=== PATIENT | male | born 1955 | race Caucasian/White ===

== ENCOUNTER → 2017-04-22 | Outpatient (CLI) | payer BC ==
[~2017-04-22] MED LIST: ASCA500 PO; ATOR10TA88 PO; CIPR-255 PO; GARL400T4 PO; LSN/10125 PO; MULT-506 PO; OMEG10007 PO; OPTIRAY 320 IV PRN
--- NOTE | 2017-04-22 18:20 | DIAGNOSTIC IMAGING REPORT ---
ABD/PELVIS IV AND ORAL CONT HISTORY: 61 years-old Male R10.9 Flank painR10.31 Abdominal pain, RLQ (right lower quadrant COMPARISON: 02/17/2014 CT abdomen and pelvis TECHNIQUE: Multiple axial CT images of the abdomen and pelvis were obtained following the intravenous administration of 120 mL Optiray 320. Oral contrast was also administered. A dose lowering technique was used consistent with the principals of K[facility]. FINDINGS: 6 x 4 mm noncalcified pulmonary nodule is present within the basal right lower lobe, unchanged from 02/17/2014 compatible with benign etiology. Coronary arterial calcifications are noted. No pneumoperitoneum. There is nonspecific 8 x 9 mm low attenuating lesion noted within the anterior right hepatic lobe, unchanged and nonspecific, however suggests benign etiology such as a hepatic cyst. The spleen, pancreas, and adrenal glands appear to be unremarkable. There is a suggested gallstones seen near the gallbladder neck Extrarenal renal pelvis on the left is again seen without hydronephrosis. Ureters and urinary bladder are unremarkable. The prostate is enlarged measuring up to 5.6 cm transversely containing coarse central calcifications. The abdominal aorta is normal in both course and caliber with mild degree of mixed plaquing present. Retroaortic left renal vein is seen. No bulky adenopathy. Nonspecific linear density is again seen in the region of the splenic vein, unchanged and likely incidental. Small fat filled hiatal hernia is noted. There is no bowel obstruction. Postsurgical changes are seen involving the sigmoid colon compatible with partial resection. Noninflamed colonic diverticula are noted. The appendix is contrast and air filled the right lower quadrant and appears normal. Small fat filled left spigelian hernia is noted with diastases of 1.1 cm. Advanced intervertebral disc space narrowing is seen at L5-S1. Bones appear intact. Bone island is noted within the left superior pubic ramus. IMPRESSION: 1. No acute intra-abdominal or intrapelvic abnormality identified to correlate with the patient's symptomatology. Normal appendix. 2. Prostatomegaly. 3. Clonic diverticulosis without diverticulitis. 4. Small fat filled left spigelian hernia is noted with diastases of 1.1 cm. 5. Probable cholelithiasis The above report was generated using voice recognition software. It may contain grammatical, syntax or spelling errors. Electronically signed by: Red Salmon M.D. 04/22/2017 6:18 PM Dictated Date/Time: 04/22/2017 6:09 PM
== END | disposition home or self-care (01) ==
LOC: C.CTS 15:39
PROVIDERS: ATTEND Physician Assistant Medical
DX: R10.31 Right lower quadrant pain (principal); R10.9 Unspecified abdominal pain; N40.0 Benign prostatic hyperplasia without lower urinary tract symptoms; K57.30 Diverticulosis of large intestine without perforation or abscess without bleeding; K43.9 Ventral hernia without obstruction or gangrene

== ENCOUNTER → 2017-08-08 | Outpatient (CLI) | payer BC ==
[~2017-08-08] MED LIST changes: +ATOR10TA82 PO; -ATOR10TA88 PO; -OPTIRAY 320 IV PRN
[2017-08-08 10:02] LABS: BASO % 0.6 %; BASO ABS # 0.03 K/uL (0-0.2); COMPLETE YES; EOS % 3.5 %; IG% 0.2 %; LYMPH % 35.6 %; LYMPH ABS # 1.92 K/uL (1.2-3.4); MEAN CELL VOLUME 91.3 fL (80-100); MEAN CORPUSCULAR HEMOGLOBIN 32.9 pg (25-34); MEAN PLATELET VOLUME 10.5 fL (7.4-10.4); MONO % 11.7 %; NEUT % 48.4 %; PLATELET COUNT 188 K/uL (130-400); RED BLOOD COUNT 4.93 M/uL (4.7-6.1); WHITE BLOOD COUNT 5.39 K/uL (4.8-10.8)
[2017-08-08 10:30] LABS: URINE APPEARANCE CLEAR (CLEAR); URINE BILIRUBIN NEG (NEG); URINE COLOR YELLOW; URINE EPITHELIAL CELL AUTO 0-5 /lpf (0-5); URINE NITRITE NEG (NEG); URINE SPECIFIC GRAVITY 1.025 (1.000-1.030); UROBILINOGEN NEG (NEG)
[2017-08-08 10:35] LABS: MANUAL MICROSCOPIC REQUIRED? NO; REVIEW REQ? NO
[2017-08-08 10:39] LABS: ALT/SGPT 33 U/L (12-78); AST/SGOT 20 U/L (15-37); BLOOD UREA NITROGEN 19 mg/dl (7-18); BUN/CREATININE RATIO 17.7 (10-20); CALCIUM 9.1 mg/dl (8.5-10.1); CARBON DIOXIDE 28 mmol/L (21-32); CHLORIDE 104 mmol/L (98-107); GLUCOSE 105 mg/dl (70-99); POTASSIUM 4.1 mmol/L (3.5-5.1); SODIUM 141 mmol/L (136-145)
[2017-08-08 10:43] LABS: ALB/GLOB RATIO 1.1 (0.9-2); ALKALINE PHOSPHATASE 72 U/L (45-117)
== END | disposition home or self-care (01) ==
LOC: C.LAB 07:04
PROVIDERS: ATTEND Physician Assistant Medical
DX: R10.31 Right lower quadrant pain (principal)

== ENCOUNTER 2023-05-25 09:36 | Observation (INO) ==
[2023-05-25] MEDS ORDERED: NITROGLYCERIN 2% OINTMENT 30GM TUBE EXT STA (09:44)
[2023-05-25] MEDS ORDERED: NITROGLYCERIN SL 0.4 MG/TAB TAB SL STA (09:44)
[2023-05-25] MEDS ORDERED: SODIUM CHLORIDE 0.9% 1000ML 1,000 ML IV ONE (09:45)
--- NOTE | 2023-05-25 09:48 | Emergency Department Note ---
Impression & Plan Substernal chest pain, Atrial fibrillation ED Provider Note Name: LELIA DAWKINS Age: 67 Sex: M Arrives Via: Ambulance Informant: Patient, ED Provider: Rodolfo Aggarwal MD Chief Complaint: Chest Pain Impression: As Per Impressions Above Medical Decision Makin-year-old gentleman arrives for evaluation of chest pain. Patient with a history of dyslipidemia, BPH, atrial fibrillation who was cardioverted a few months ago. He has been on Eliquis for some time now but does note he missed a dose a few days ago. Patient arrives with crushing substernal chest pressure. Resolved with nitro. A bit hypotensive on arrival with some continued pain a nitro paste was placed with resolution of pain. He is in A-fib with good controlled rate. No indication to start further IV anticoagulants at this time. He had already received aspirin by EMS. Laboratory work-up is essentially benign including a normal troponin. That said given patient's history cardiac rule out is clearly indicated as he is high risk. I did obtain a D-dimer as he did recently travel back from [place] which is within normal range. No indication for CT angio at this time. Prior Medical Record and Triage/Nursing Notes reviewed by Me External chart reviewed by me including previous cardiology and PCP visits Differentials:Cardiac ischemia, aortic dissection, pulmonary embolism, pneumothorax, pneumonia, pericarditis, myocarditis, esophageal rupture, GERD, cholecystitis, pancreatitis, musculoskeletal, as well as other pathologies. Vital Signs: reviewed and remarkable for no significant abnormalities Interventions: Normal saline bolus, nitroglycerin paste 1 inch Labs:Reviewed and remarkable for no significant abnormalities Imagin view chest x-ray no acute findings as per my interpretation. No pneumothorax, pneumonia, wide mediastinum. EKG:As per my interpretation. Indication chest pain. Atrial fibrillation at 54 bpm with no overt ischemia appreciated. QTc 422. When compared to EKG from March 17, 2023 A-fib has replaced normal sinus rhythm Cardiac/Tele Monitoring: Cardiac Monitoring: An Order was placed for continuous cardiac monitoring. The monitor shows a rate of 50 with a afib rhythm. Consults:Dr Maria BAUMAN Hospitalist Plan: Disposition:Hospitalization. Condition: Good History of Present Illness:67-year-old gentleman arrives for evaluation of chest pain. Patient notes he was sitting down at breakfast this morning when he developed substernal chest pressure. He not really eaten or drank anything quite yet. Chest pressure goes the left shoulder. Associate with some nausea. Called 911. Given aspirin and nitro in route. Chest pain has resolved and then started to come back after the nitroglycerin. Denies any nausea, vomiting, palpitations, syncope. He does note he feels mildly short of breath at this time. He has a history of A-fib for which he was cardioverted about a month ago. He has been taking Eliquis for the last few weeks without missing any doses other than a single dose 2 days ago. Patient did recently travel back from [place]. He denies any leg swelling or calf pain. Denies any falls, trauma, injuries. Denies any previous ACS history. He has never had a catheterization. Past History:Atrial fibrillation, dyslipidemia, BPH, CAD Home Medications:See Below Allergies:atorvastatin Vitals:Blood Pressure: , Pulse 122/92, RR 71, T 18C, O2 36.7% on 100 Physical Exam: GENERAL: Patient is anxious appearing and in mild distress. EYES: No scleral icterus, unremarkable pupils. ENT: Mucous membranes moist, no nasal congestion. NECK: No masses appreciated, nomeningismus, trachea is midline. RESPIRATORY: No dyspnea. Clear to auscultation and equal bilaterally. No wheeze, no rhonchi. CARDIOVASCULAR: Regular rate and rhythm.No murmurs, rubs, gallops appreciated. GASTROINTESTINAL: Abdomen soft, non-tender, no peritonitis.Bowel sounds positive.No masses appreciated. BACK: No midline tenderness, no CVA tenderness EXTREMITIES: Normal motion all extremities, no cyanosis, no edema. NEUROLOGIC: Alert and oriented, no acute motor or sensory deficits, no focal weakness, cranial nerves grossly intact. SKIN: No rash, no jaundice, no diaphoresis. PSYCH: Appropriate GCS: 15 ED Course: Times/Reassessments: Stable no further chest pain and agreeable to hospitalization for cardiac rule out Rodolfo Aggarwal MD Past Med/Surg History Medical History Aortic atherosclerosis BPH (benign prostatic hyperplasia) Coronary artery calcification Dysplastic nevus Elevated cholesterol Elevated PSA History of urinary retention required serrano catheter for 10 days *January 2023 Hx of diverticulitis of colon Hypertension New onset a-fib new dx Snoring Surgical History H/O prostate biopsy History of arthroscopy of left knee History of colonoscopy History of colostomy reversal History of cystoscopy History of foot surgery left History of partial colectomy *with temporary colostomy>r/t diverticulitis History of tonsillectomy and adenoidectomy History of tooth extraction Hx of vasectomy Family History Mother Arthritis Father Coronary heart disease Dementia Unknown Benign polyp of large intestine Other Colonic polyp Hypertension Nephrolithiasis No family history of adverse response to anesthesia Prostate cancer Denies family history of Ovarian cancer Myocardial infarction Breast cancer Colorectal cancer Social History Smoking Status: Never smoker Second Hand Exposure: No; Do You Dip or Chew Tobacco: No; Tobacco Cessation Education Requested by Patient: No Hx Alcohol Use: Yes Alcohol type: beer Alcohol Intake Frequency: 2-3 x/Week Alcohol Intake Frequency Comment: weekends Hx Substance Use: No Preferred Language: Yakut Communication Ability: Effective Visual Impairment: No Limitations Hearing Ability: Normal 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 Beliefs That Will Affect Care: None marital status: Current Living Situation: Spouse current occupational status: retired Other Information That Helps Us Care for You: No Feels Safe at Home: Yes Safety Concerns: Feels Safe At This Time Childhood Exposure to Second-Hand Smoke: No Diet: regular Diet Comment: regular caffeine: Yes during the past year weight has: remained stable Dental Care, Regularly: Yes Physical Activity Frequency: Daily Seatbelt Use: always Sunscreen Use: Yes Assistive Devices: Glasses Allergies Allergies Allergy/AdvReac Type Severity Reaction Status Date / Time atorvastatin AdvReac Intermediate "JOINTS Verified 04/20/23 08:52 ACHED ALL OVER". if he takes too much at the time Home Meds Home Medications Medication Instructions Recorded Confirmed ascorbic acid (vitamin C) 500 mg 500 mg PO QAM 01/25/20 05/25/23 tablet multivitamin (Daily Multi-Vitamin 1 tab PO QAM 01/25/20 05/25/23 tablet) atorvastatin 40 mg tablet 40 mg PO QAM 05/25/23 05/25/23 lisinopril 10 1 tab PO QAM 05/25/23 05/25/23 mg-hydrochlorothiazide 12.5 mg tablet tamsulosin 0.4 mg capsule 0.4 mg PO QAM 05/25/23 05/25/23 valacyclovir 1 gram tablet See Rx Instructions .Route 05/25/23 05/25/23 .COMPLEX PRN Other Previous Rx's Medication Instructions Recorded apixaban 5 mg tablet (Eliquis) 5 mg PO BID #180 tabs 04/20/23 Results & Data (ED) Vital Signs Vital Signs - 24 hr 05/25/23 09:36 05/25/23 09:42 05/25/23 10:04 Temperature 36.7 C Temperature Source Oral Pulse Rate 69 71 Pulse Rate [Apical] Respiratory Rate 18 Respiratory Effort / Characteristics Non-Labored Spontaneous Non-Labored Respiratory Depth Normal Respiratory Pattern Regular Blood Pressure 122/92 Blood Pressure [Right Arm] Blood Pressure Mean 102 Blood Pressure Mean [Right Arm] Pulse Oximetry 100 Oxygen Delivery Method Room Air Sepsis Recent Fever Within 48 Hours No Sepsis New/Unexplained Change in Mental Status No Sepsis Action Taken by Nursing No Action Required 05/25/23 10:04 05/25/23 09:56 05/25/23 10:00 Temperature Temperature Source Pulse Rate Pulse Rate [Apical] 55 L 56 L Respiratory Rate 18 23 Respiratory Effort / Characteristics Non-Labored Spontaneous Non-Labored Spontaneous Respiratory Depth Normal Normal Respiratory Pattern Blood Pressure Blood Pressure [Right Arm] 107/82 108/82 Blood Pressure Mean Blood Pressure Mean [Right Arm] 90 90 Pulse Oximetry 98 98 Oxygen Delivery Method Room Air Room Air Room Air Sepsis Recent Fever Within 48 Hours Sepsis New/Unexplained Change in Mental Status Sepsis Action Taken by Nursing Laboratory Data 05/25/23 09:45 05/25/23 09:45 Lab Results 05/25/23 05/25/23 05/25/23 Range/Units 09:45 09:45 09:45 WBC 6.61 (4.8-10.8) K/ul RBC 5.05 (4.70-6.10) M/uL Hgb 16.6 (14.0-18.0) g/dl Hct 45.3 (42.0-52.0) % MCV 89.7 (80.0-100.0) fL MCH 32.9 (25.0-34.0) pg MCHC 36.6 H (32.0-36.0) g/dL RDW Std Deviation 38.2 (36.4-46.3) fL RDW Coeff of Silverio 11.8 (11.5-14.5) % Plt Count 189 (130-400) K/uL MPV 10.0 (9.4-12.4) fL Immature Gran % (Auto) 0.2 % Neut % (Auto) 52.6 % Lymph % (Auto) 30.7 % [place] % (Auto) 9.7 % Eos % (Auto) 5.9 % Baso % (Auto) 0.9 % Neut # (Auto) 3.48 (1.40-6.50) K/uL Lymph # (Auto) 2.03 (1.20-3.40) K/uL [place] # (Auto) 0.64 H (0.11-0.59) K/uL Eos # (Auto) 0.39 (0.00-0.50) K/uL Baso # (Auto) 0.06 (0.00-0.20) K/uL Immature Gran # (Auto) 0.01 (0.01-0.20) K/uL PT 12.0 (9.0-12.0) Seconds INR 1.1 (0.9-1.1) APTT 28.8 (21.0-31.0) Seconds PTT Ratio 1.0 D-Dimer < 190 (0-500) ug/L FEU Sodium 138 (136-145) mmol/L Potassium 4.1 (3.5-5.1) mmol/L Chloride 106 (98-107) mmol/L Carbon Dioxide 24 (21-32) mmol/L Anion Gap 8 (3-11) BUN 20 (6-23) mg/dl Creatinine 1.05 (0.6-1.4) mg/dl Est Cr Clr Drug Dosing 83.0 ml/min Est GFR ( Amer) 85.9 ml/min Est GFR (Non-Af Amer) 74.1 ml/min BUN/Creatinine Ratio 19.0 (10-20) Glucose 120 H (70-99(Fasting)) mg/dl Calcium 9.8 (8.6-10.3) mg/dl Magnesium 1.9 (1.7-2.4) mg/dl Total Bilirubin 1.4 H (0.2-1.0) mg/dl Direct Bilirubin 0.2 (0-0.2) mg/dl AST 22 (13-39) U/L ALT 24 (7-52) U/L Alkaline Phosphatase 67 (34-104) U/L Troponin I High Sens 5.2 (0-20) pg/ml Total Protein 6.5 (6.0-8.3) gm/dl Albumin 4.0 (3.4-5.0) gm/dl Administered Medications Discontinued Medications Sodium Chloride (Nss 1000ml) 1,000 mls @ 999 mls/hr IV .Q1H1M ONE Stop: 05/25/23 10:45 Last Infusion: 05/25/23 10:57 Dose: 0 mls/hr Documented By: Admin: 05/25/23 09:56 Dose: 999 mls/hr Documented By: Nitroglycerin (Nitroglycerin 2% Ointment 30gm Tube) 1 inch EXT NOW STA Stop: 05/25/23 09:45 Last Admin: 05/25/23 09:55 Dose: 1 inch Documented By: MAYTE Nitroglycerin (Nitroglycerin Sl 0.4 Mg/Tab Tab) 0.4 mg SL NOW STA Stop: 05/25/23 09:45 Last Admin: 05/25/23 10:02 Dose: Not Given Documented By: Imaging Data Radiologist's Impression: Chest X-Ray 05/25/23 09:45 XR chest 1V portable CLINICAL HISTORY: chest pain TECHNIQUE: Single frontal radiograph of the chest was obtained. Comparison: None available at the time of this dictation. FINDINGS: No lines and tubes are seen. The cardiomediastinal silhouette is normal. The lungs are clear. No evidence of pleural effusion or pneumothorax. IMPRESSION: No acute chest disease. ACT 112: Negative or not required by law. Electronically signed by: Jesu Issa M.D. 05/25/2023 10:10 AM Discharge Plan Visit Data Chief Complaint: Chest Pain Stated Complaint: CHEST PAIN ED Provider: Rodolfo Aggarwal Discharge Problem: Substernal chest pain, Atrial fibrillation Patient Disposition: Admitted As Inpatient Discharge Instructions Interventions: ED Discharge Assessment Last Done: 05/25/23 13:15 Atrial fibrillation Qualifiers: Atrial fibrillation type: paroxysmal Qualified Code(s): I48.0 - Paroxysmal atrial fibrillation
--- NOTE | 2023-05-25 10:11 | XRay Report ---
XR chest 1V portable CLINICAL HISTORY: chest pain TECHNIQUE: Single frontal radiograph of the chest was obtained. Comparison: None available at the time of this dictation. FINDINGS: No lines and tubes are seen. The cardiomediastinal silhouette is normal. The lungs are clear. No evid ence of pleural effusion or pneumothorax. IMPRESSION: No acute chest disease. ACT 112: Negative or not required by law. Electronically signed by: Jesu Issa M.D. 05/25/2023 10:10 AM
[2023-05-25 10:26] LABS: Basophils # (auto) 0.06 K/uL (0.00-0.20); Basophils % (auto) 0.9 %; Eosinophils # (auto) 0.39 K/uL (0.00-0.50); Eosinophils % (auto) 5.9 %; Hematocrit (blood only) 45.3 % (42.0-52.0); Hemoglobin 16.6 g/dl (14.0-18.0); Immature Granulocytes # (auto) 0.01 K/uL (0.01-0.20); Immature Granulocytes % (auto) 0.2 %; Lymphocytes # (auto) 2.03 K/uL (1.20-3.40); Lymphocytes % (auto) 30.7 %; Mean Corpuscular Hemoglobin 32.9 pg (25.0-34.0); Mean Corpuscular Hgb Conc 36.6 g/dL (32.0-36.0); Mean Corpuscular Volume 89.7 fL (80.0-100.0); Monocytes # (auto) 0.64 K/uL (0.11-0.59); Monocytes % (auto) 9.7 %; Neutrophils # (auto) 3.48 K/uL (1.40-6.50); Neutrophils % (auto) 52.6 %; Platelet Count 189 K/uL (130-400); RDW Coefficient of Variation 11.8 % (11.5-14.5); RDW Standard Deviation 38.2 fL (36.4-46.3); Red Blood Count 5.05 M/uL (4.70-6.10); White Blood Count 6.61 K/ul (4.8-10.8)
[2023-05-25 10:48] LABS: Bilirubin Direct 0.2 mg/dl (0-0.2); Bilirubin,Total 1.4 mg/dl (0.2-1.0); Calcium 9.8 mg/dl (8.6-10.3); Est GFR (African American) 85.9 ml/min; Est GFR (Non-African American) 74.1 ml/min; Magnesium 1.9 mg/dl (1.7-2.4); Potassium 4.1 mmol/L (3.5-5.1); Total Protein 6.5 gm/dl (6.0-8.3)
[2023-05-25 10:54] LABS: D Dimer < 190 ug/L FEU (0-500); INR 1.1 (0.9-1.1); Partial Thromboplastin Time 28.8 Seconds (21.0-31.0); Troponin I High Sensitivity 5.2 pg/ml (0-20)
--- NOTE | 2023-05-25 12:18 | History & Physical Report ---
Date of Service May 25, 2023 Assessment & Plan (1) Chest pain: Plan: Patient presents with about an hour worth of substernal chest pain that occurred during eating- peak pain was 9/10 and relieved with nitroglycerine/oxygen/aspirin DDX: Unstable angina vs. angina vs. non-cardiac chest pain - Trend HScTNI, symptoms, and ECG- 6 hours post peak pain will be around 1430 - Remove NTG paste at this time for symptom tracking - NPO until second set of enzymes return and after midnight - If symptoms remain negative overnight - would favor EST, if symptoms return with elevation of HScTNI- consider stopping Eliquis and placing on heparin for invasive evaluation- appreciate Cardiology consultation for risk stratifying and workup eval. - ECHO for RWMA - Continue with CARLY - Not on BB at this time- likely secondary to mild bradycardia (2) Afib: Plan: Patient diagnosed with Afib in February, underwent cardioversion and holter monitor- has been in afib majority of time noted in March reading of external monitor. - [id number] >2- continue with Eliquis 5mg PO BID unless planning for invasive coronary evaluation - Rate controlled (3) Hypertension: Plan: Continue with CARLY/HCTZ - follow- goal <140 (4) Dyslipidemia: Plan: Continue atorvastatin (5) Elevated serum glucose: Plan: Elevated random glucose without the diagnosis of diabetes - HGB A1c in AM- 05/11/22 5.5- repeat in morning History of Present Illness Primary Care Provider: LACHELLE Alvarez 67 YOM with medical history of: Afib (on Apixaban), BPH with LUTS, HTN. Patient came to the EMD today via EMS for complaints of chest pain. The patient endorses that he went to [employer] this morning for breakfast with his friends, and took one bite of food. Following this, the patient endorses that he had onset of chest pain that felt like a pressure 3-5/10. The pain was located in the center of his chest and was without radiation. He thought he may have swallowed his food wrong, so he excused himself and went to the bathroom. In the Bathroom he noted that the pain increased and he did vomit x1. This did not help the pain, he went back to the table, the pain was getting worse and now associated with difficulty breathing and feeling sweaty. He went outside to "walk it off" and at that time the pain was at its maximum intensity of 9/10 and had him doubled over. There was no radiation of the pain, EMS was called. He was treated with oxygen, ASA, and sublingual nitroglycerine spray. Patient states that the pain then started to ease off as they were getting him in the back of the ambulance. He has been chest pain free since that time. In the EMD he had routine labs performed to include and D-dimer and HScTNI. ECG was without STEMI. He was given nitro-paste for elevated blood pressure. He endorses that he took his medications this morning and reports missing one dose of his Eliquis last week. He is on room air, and without dyspnea or tachycardia. BP now controlled. Patient denies ever smoking, 5-10 beers per week, He also endorses playing pickle ball at least 3 times per week without chest pain (last done on Tuesdayg23), cuts grass with push mower- last done this past weekend without any chest pain or difficulty breathing. Patient will be brought in for evaluation and trending his symptoms as well as HsCTNI and ECGs. Obtain ECHO for any RWMA. Pending hospital course and symptomatology further diagnostics will be determined for either EST or cath. Cardiology consultation for risk stratification appreciated. NPO until second set of cardiac enzymes as well as at Midnight. CODE: FULL Allergies Allergy/AdvReac Type Severity Reaction Status Date / Time atorvastatin AdvReac Intermediate "JOINTS Verified 04/20/23 08:52 ACHED ALL OVER". if he takes too much at the time Home Medications Medication Instructions Recorded Confirmed Type ascorbic acid (vitamin C) 500 mg 500 mg PO QAM 01/25/20 05/25/23 History tablet multivitamin (Daily Multi-Vitamin 1 tab PO QAM 01/25/20 05/25/23 History tablet) apixaban 5 mg tablet (Eliquis) 5 mg PO BID #180 tabs 04/20/23 05/25/23 Rx atorvastatin 40 mg tablet 40 mg PO QAM 05/25/23 05/25/23 History lisinopril 10 1 tab PO QAM 05/25/23 05/25/23 History mg-hydrochlorothiazide 12.5 mg tablet tamsulosin 0.4 mg capsule 0.4 mg PO QAM 05/25/23 05/25/23 History valacyclovir 1 gram tablet See Rx Instructions .Route 05/25/23 05/25/23 History .COMPLEX PRN Other Past Med/Surg History Medical History Aortic atherosclerosis Atrial fibrillation, permanent BPH (benign prostatic hyperplasia) Coronary artery calcification Dyslipidemia Dysplastic nevus Elevated PSA History of urinary retention required serrano catheter for 10 days *January 2023 Hx of diverticulitis of colon Hypertension Snoring Surgical History H/O prostate biopsy History of arthroscopy of left knee History of colonoscopy History of colostomy reversal History of cystoscopy History of foot surgery left History of partial colectomy *with temporary colostomy>r/t diverticulitis History of tonsillectomy and adenoidectomy History of tooth extraction Hx of vasectomy Family History Mother Arthritis Father Coronary heart disease Dementia Unknown Benign polyp of large intestine Other Colonic polyp Hypertension Nephrolithiasis No family history of adverse response to anesthesia Prostate cancer Denies family history of Ovarian cancer Myocardial infarction Breast cancer Colorectal cancer Social History Smoking Status: Never smoker Second Hand Exposure: No; Do You Dip or Chew Tobacco: No; Hx Alcohol Use: Yes Alcohol type: beer Alcohol Intake Frequency: 2-3 x/Week Al cohol Intake Frequency Comment: weekends Hx Substance Use: No Preferred Language: Marshallese Communication Ability: Effective Visual Impairment: No Limitations Hearing Ability: Normal Bankruptcy Judge Required: No Beliefs That Will Affect Care: None marital status: Current Living Situation: Spouse current occupational status: retired Feels Safe at Home: Yes Childhood Exposure to Second-Hand Smoke: No Diet: regular Diet Comment: regular caffeine: Yes during the past year weight has: remained stable Dental Care, Regularly: Yes Physical Activity Frequency: Daily Seatbelt Use: always Sunscreen Use: Yes Assistive Devices: Glasses Review of Systems Review of Systems: REVIEW OF SYSTEMS: Constitutional: No fever, sweats or chills Eyes: No diplopia, no worsening or blurred vision ENT: normal hearing, no trouble swallowing Respiratory: No cough, sputum, dyspnea at rest or on exertion Cardiovascular: (+) chest pain, tightness- NO palpitations Abdomen: (+) vomiting x1, No pain, diarrhea or constipation Musculoskeletal: No joint pain, calf pain, swelling Neurologic: No weakness, numbness/tingling, or balance problems Psychiatric: No anxiety or depression Skin: No rash or itch Physical Exam Physical Exam: PHYSICAL EXAM: General: awake, alert, no apparent distress Head: Normocephalic, atraumatic ENT: PERRL, EOMI, no pharyngeal exudate, mucous membranes moist Neuro: AAO x 3, speech clear and appropriate, strength intact bilaterally 5/5, sensation intact and equal all extremities and dermatomes, no pronator drift Chest: equal rise and fall of the chest, no accessory muscle use, no heaves or thrills, Clear to auscultation, on room air, Cardiac: irregular rate and rhythm, telemetry reviewed- afib, skin warm dry, cap refill <3 seconds, peripheral pulses +2 no JVD, no murmur, no edema GI: NABS x 4 quadrants, soft, nontender to palpation, no rebound, guarding or tenderness : Spontaneously voiding, no pain, no CVA tenderness, Psych: Normal mood and affect Skin: no rash or erythema Results & Data Results & Data Vital Signs (Past 12 Hours) Vital Signs Temp Pulse Pulse Resp BP BP Pulse Ox 05/25/23 10:00 56 L 23 108/82 98 05/25/23 09:56 55 L 18 107/82 98 05/25/23 10:04 05/25/23 09:42 71 05/25/23 09:36 36.7 C 69 18 122/92 100 O2 Del Method 05/25/23 10:00 Room Air 05/25/23 09:56 Room Air 05/25/23 10:04 Room Air 05/25/23 09:42 05/25/23 09:36 Room Air Laboratory Results Abnormal lab results 05/25/23 05/25/23 Range/Units 09:45 09:45 MCHC 36.6 H (32.0-36.0) g/dL [place] # (Auto) 0.64 H (0.11-0.59) K/uL Glucose 120 H (70-99(Fasting)) mg/dl Total Bilirubin 1.4 H (0.2-1.0) mg/dl Diagnostic Findings Chest X-Ray 05/25/23 09:45 XR chest 1V portable CLINICAL HISTORY: chest pain TECHNIQUE: Single frontal radiograph of the chest was obtained. Comparison: None available at the time of this dictation. FINDINGS: No lines and tubes are seen. The cardiomediastinal silhouette is normal. The lungs are clear. No evidence of pleural effusion or pneumothorax. IMPRESSION: No acute chest disease. ACT 112: Negative or not required by law. Electronically signed by: Jesu Issa M.D. 05/25/2023 10:10 AM Medications Administered Discontinued Medications Sodium Chloride (Nss 1000ml) 1,000 mls @ 999 mls/hr IV .Q1H1M ONE Stop: 05/25/23 10:45 Last Infusion: 05/25/23 10:57 Dose: 0 mls/hr Documented By: Admin: 05/25/23 09:56 Dose: 999 mls/hr Documented By: MAYTE Nitroglycerin (Nitroglycerin 2% Ointment 30gm Tube) 1 inch EXT NOW STA Stop: 05/25/23 09:45 Last Admin: 05/25/23 09:55 Dose: 1 inch Documented By: MAYTE Nitroglycerin (Nitroglycerin Sl 0.4 Mg/Tab Tab) 0.4 mg SL NOW STA Stop: 05/25/23 09:45 Last Admin: 05/25/23 10:02 Dose: Not Given Documented By: ECG Additional Comments: 25-MAY-2023 10:23:00 Atrial fibrillation with slow ventricular response with premature ventricular or aberrantly conducted complexes Left axis deviation Low voltage QRS Cannot rule o ut Anterior infarct , age undetermined Abnormal ECG When compared with ECG of 25-MAY-2023 09:39, (unconfirmed) No significant change was found 25-MAY-2023 09:39:29 Atrial fibrillation Left axis deviation Abnormal ECG When compared with ECG of 17-MAR-2023 07:41, Atrial fibrillation has replaced Sinus rhythm Supervising Physician Co-Signing Physician Notes I personally saw and examined the patient. I verified all ellis points and agree with LACHELLE Hendricks with the following exceptions and/or additions: 67 year old male presents to the ER with substernal chest pain after eating a bite of omelet at the [employer]. Symptoms now resolved. No prior VA or stroke. Troponin x2 negative. O/E A&Ox3, HS RRR, no murmurs, Chest CTAB, Abdo SNT, no pedal edema A/P Chest pain - Cardiology already seen patient when seen and planning on stress echo tomorrow. Suspect most likely esophageal in nature with probably dysphagia. Low suspicion of ACS. Refer to GI if having recurrent symptoms but suspect this was a one off as no prior dysphagia prior to this. PG Care Time/CCT Total # of Minutes Spent Total Time Spent with Patient: Total time spent is greater than 50% in coordination of care (as documented) at patient's floor/unit and/or counseling patient: Coding Level of Care Code 87347 INT INP/OBS CARE 2/55MIN Diagnoses Chest pain R07.9 Afib I48.91 Hypertension I10 Hypertension type: essential hypertension Dyslipidemia E78.5 Elevated serum glucose R73.9 (3) Hypertension Hypertension type: essential hypertension Qualified Code(s): I10 - Essential (primary) hypertension
[2023-05-25] MEDS ORDERED: ACETAMINOPHEN 325 MG TAB PO PRN (13:44)
[2023-05-25] MEDS ORDERED: NITROGLYCERIN SL 0.4 MG/TAB TAB SL PRN (13:44)
[2023-05-25] MEDS ORDERED: ONDANSETRON INJ 2 MG/ML 2 ML VIAL IV PRN (13:44)
[2023-05-25] MEDS ORDERED: PNEUMOCOCCAL POLYSACCHARIDES 25 MCG/0.5 ML VIAL/SYR IM ONE (14:18)
[2023-05-25] MEDS: APIXABAN 5 MG TABLET PO SCH (20:25)
--- NOTE | 2023-05-25 21:59 | Cardiology Consultation ---
Date of Consultation May 25, 2023 Assessment & Plan (1) Substernal chest pain: (2) Atrial fibrillation, permanent: (3) Hypertension: (4) Coronary artery calcification: (5) Dyslipidemia: Plan ASSESSMENT/PLAN: 1. Chest pain: Atypical for ischemic heart disease. Occurred immediately after swallowing food. Given risk factors, can pursue noninvasive ischemic evaluation such as exercise stress echo in the morning. Consider evaluation of esophagus, especially if symptoms recur. High-sensitivity troponin has been negative and no ischemic changes noted on ECG, despite prolonged episode of chest pain. Preliminary echo review demonstrated normal LV systolic function with formal review to follow. 2. Atrial fibrillation: Appears permanent. Underwent cardioversion but reverted to A-fib. Seems to be asymptomatic in this regard. Has not required rate controlling medications and has baseline mild bradycardia. Chronotropic response will be evaluated during stress test as well. Continue anticoagulation for stroke risk reduction. 3. Hypertension: Blood pressure has been well controlled. No changes recommended at this time. 4. Coronary artery calcification: Unclear when diagnosed. Would manage as if underlying CAD. Continue high intensity statin therapy and blood pressure management. Not on aspirin due to indication for anticoagulation therapy. 5. Dyslipidemia: Most recent LDL available for review today is excellent. Continue high intensity statin therapy. 6. Disposition: Exercise stress echo on 05/26/2023. If unremarkable, can be discharged home from a cardiac perspective. Continue to follow-up with Dr. Jo, his primary extermination supervisor. Today's visit was 60 minutes in duration, including [id number] time, counseling patient, coordinating care, reviewing multiple records, reviewing studies, and completing documentation. Thank you for allowing me to participate in the care of your patient. Please call for any other questions or concerns. Sincerely, Lukas Mckay M.D. History of Present Illness Reason for Consultation: Chest pain Requesting Physician: Lj Sifuentes MD Attending Physician: Lj Sifuentes MD History of Present Illness Mr. Garces is a very pleasant 67-year-old gentleman with a history significant for atrial fibrillation, hypertension, dyslipidemia, and coronary artery calcification. His primary extermination supervisor is Dr. Jo. He was diagnosed with atrial fibrillation on 01/24/2023 on a routine PCP visit. He underwent cardioversion on 03/17/2023 which was successful but noted to be in atrial fibrillation in March 2023 while wearing a Holter monitor when he was in atrial fibrillation throughout. He has had the following studies/procedures: 1. Echo 03/23/2023 [facility]: Normal LV systolic function and wall motion. EF 50 to 55%. Mild TR. 2. Cardioversion 03/17/2023: A-fib converted to sinus rhythm with 200 J. 3. Holter 04/14/2023: Atrial fibrillation throughout with average heart rate 71 bpm (39-116). He was admitted on 05/25/2023 with chest pain. He was at the [employer] and had consumed approximately half a cup of coffee and after his first bite of an omelette, he started coughing immediately after swallowing and then developed chest pain. He described the pain as a substernal chest pressure with shortness of breath and diaphoresis. There was no radiation of the pain. He was able to cough up some phlegm but due to ongoing chest pain, excused himself and went into the restroom where he vomited more phlegm. He went back to the table but with continued chest discomfort, went outside and his friends came out and called EMS. He recalls receiving supplemental oxygen, full dose aspirin, and nitroglycerin and then in route, another dose of nitroglycerin. Eventually the chest discomfort resolved after approximately 1 hour from onset. He has remained chest pain-free during his hospital stay thus far. He denies any further shortness of breath, syncope, near syncope, palpitations, edema, or bleeding. He walks 1 mile a day and exercise tolerance has been stable. Review of systems: As above. Review of systems otherwise negative/unremarkable. Family history: Father had CABG. Mother had CHF. Younger sister has A-fib with a pacemaker. Older sister has A-fib and CHF. Social history: Denies smoking or drug abuse. Occasional alcohol. Lives at home with his . Has 2 adult sons (1 son is a real estate investment analyst in [place], [place]). Has grandchildren. He was unaccompanied. Allergies Allergy/AdvReac Type Severity Reaction Status Date / Time atorvastatin AdvReac Intermediate "JOINTS Verified 04/20/23 08:52 ACHED ALL OVER". if he takes too much at the time Home Medications Medication Instructions Recorded Confirmed Type ascorbic acid (vitamin C) 500 mg 500 mg PO QAM 01/25/20 05/25/23 History tablet multivitamin (Daily Multi-Vitamin 1 tab PO QAM 01/25/20 05/25/23 History tablet) apixaban 5 mg tablet (Eliquis) 5 mg PO BID #180 tabs 04/20/23 05/25/23 Rx atorvastatin 40 mg tablet 40 mg PO QAM 05/25/23 05/25/23 History lisinopril 10 1 tab PO QAM 05/25/23 05/25/23 History mg-hydrochlorothiazide 12.5 mg tablet tamsulosin 0.4 mg capsule 0.4 mg PO QAM 05/25/23 05/25/23 History valacyclovir 1 gram tablet See Rx Instructions .Route 05/25/23 05/25/23 History .COMPLEX PRN Other Patient History Medical History Aortic atherosclerosis Atrial fibrillation, permanent BPH (benign prostatic hyperplasia) Coronary artery calcification Dyslipidemia Dysplastic nevus Elevated PSA History of urinary retention required serrano catheter for 10 days *January 2023 Hx of diverticulitis of colon Hypertension Snoring Surgical History H/O prostate biopsy History of arthroscopy of left knee History of colonoscopy History of colostomy reversal History of cystoscopy History of foot surgery left History of partial colectomy *with temporary colostomy>r/t diverticulitis History of tonsillectomy and adenoidectomy History of tooth extraction Hx of vasectomy Family History Mother Arthritis Father Coronary heart disease Dementia Unknown Benign polyp of large intestine Other Colonic polyp Hypertension Nephrolithiasis No family history of adverse response to anesthesia Prostate cancer Denies family history of Ovarian cancer Myocardial infarction Breast cancer Colorectal cancer Social History Smoking Status: Never smoker Second Hand Exposure: No; Do You Dip or Chew Tobacco: No; Tobacco Cessation Education Requested by Patient: No Hx Alcohol Use: Yes Alcohol type: beer Alcohol Intake Frequency: 2-3 x/Week Alcohol Intake Frequency Comment: weekends Hx Substance Use: No Preferred Language: British Communication Ability: Effective Visual Impairment: No Limitations Hearing Ability: Normal Mushroom Growth Media Mixer Required: No Beliefs That Will Affect Care: None marital status: Current Living Situation: Spouse current occupational status: retired Other Information That Helps Us Care for You: No Feels Safe at Home: Yes Safety Concerns: Feels Safe At This Time Childhood Exposure to Second-Hand Smoke: No Diet: regular Diet Comment: regular caffeine: Yes during the past year weight has: remained stable Dental Care, Regularly: Yes Physical Activity Frequency: Daily Seatbelt Use: always Sunscreen Use: Yes Assistive Devices: Glasses Physical Exam Physical Exam: Gen.: No acute distress. Alert and oriented. HEENT: Anicteric sclera. Neck: No JVD. No bruits. Normal carotid upstrokes bilaterally. Cardiac: PMI was nondisplaced. No ventricular heave. Irregularly irregular with mild bradycardia. Normal S1-S2. No murmurs, rubs, or gallops. Pulmonary: Clear to auscultation bilaterally without wheezes, rales, or rhonchi. Abdomen: Soft, nontender, nondistended, with normoactive bowel sounds. No bruits noted. Extremities: 2+ radial pulses bilaterally. 2+ posterior tibialis pulses bilaterally. No edema or cyanosis. Psychiatric: Affect appears appropriate. Chest: Nontender to palpation. Results & Data Vital Signs (Past 12 Hours) Vital Signs Temp Pulse Pulse Pulse Resp BP Pulse Ox 05/25/23 20:00 36.9 C 51 L 18 123/73 97 05/25/23 15:47 36.5 C 53 L 19 137/82 98 05/25/23 15:25 50 L 05/25/23 14:00 55 L 05/25/23 13:46 36.6 C 51 L 18 102/66 98 05/25/23 13:12 58 L 14 120/80 96 05/25/23 12:15 59 L 18 118/69 96 05/25/23 10:00 56 L 23 108/82 98 05/25/23 09:56 55 L 18 107/82 98 05/25/23 10:04 O2 Del Method 05/25/23 20:00 Room Air 05/25/23 15:47 Room Air 05/25/23 15:25 05/25/23 14:00 05/25/23 13:46 Room Air 05/25/23 13:12 Room Air 05/25/23 12:15 Room Air 05/25/23 10:00 Room Air 05/25/23 09:56 Room Air 05/25/23 10:04 Room Air Laboratory Results Laboratory Results - last 24 hr 05/25/23 05/25/23 05/25/23 09:45 09:45 09:45 WBC 6.61 RBC 5.05 Hgb 16.6 Hct 45.3 MCV 89.7 MCH 32.9 MCHC 36.6 H RDW Std Deviation 38.2 RDW Coeff of Silverio 11.8 Plt Count 189 MPV 10.0 Immature Gran % (Auto) 0.2 Neut % (Auto) 52.6 Lymph % (Auto) 30.7 [place] % (Auto) 9.7 Eos % (Auto) 5.9 Baso % (Auto) 0.9 Neut # (Auto) 3.48 Lymph # (Auto) 2.03 [place] # (Auto) 0.64 H Eos # (Auto) 0.39 Baso # (Auto) 0.06 Immature Gran # (Auto) 0.01 PT 12.0 INR 1.1 APTT 28.8 PTT Ratio 1.0 D-Dimer < 190 Sodium 138 Potassium 4.1 Chloride 106 Carbon Dioxide 24 Anion Gap 8 BUN 20 Creatinine 1.05 Est Cr Clr Drug Dosing 83.0 Est GFR ( Amer) 85.9 Est GFR (Non-Af Amer) 74.1 BUN/Creatinine Ratio 19.0 Glucose 120 H Calcium 9.8 Magnesium 1.9 Total Bilirubin 1.4 H Direct Bilirubin 0.2 AST 22 ALT 24 Alkaline Phosphatase 67 Troponin I High Sens 5.2 Total Protein 6.5 Albumin 4.0 05/25/23 05/25/23 13:04 19:35 WBC RBC Hgb Hct MCV MCH MCHC RDW Std Deviation RDW Coeff of Silverio Plt Count MPV Immature Gran % (Auto) Neut % (Auto) Lymph % (Auto) [place] % (Auto) Eos % (Auto) Baso % (Auto) Neut # (Auto) Lymph # (Auto) [place] # (Auto) Eos # (Auto) Baso # (Auto) Immature Gran # (Auto) PT INR APTT PTT Ratio D-Dimer Sodium Potassium Chloride Carbon Dioxide Anion Gap BUN Creatinine Est Cr Clr Drug Dosing Est GFR ( Amer) Est GFR (Non-Af Amer) BUN/Creatinine Ratio Glucose Calcium Magnesium Total Bilirubin Direct Bilirubin AST ALT Alkaline Phosphatase Troponin I High Sens 5.4 8.2 Total Protein Albumin Diagnostic Findings Telemetry personally reviewed: Atrial fibrillation with heart rates mostly 40s to 60. ECGs personally reviewed: ECG 05/25/2023 at 9:39 AM: A-fib 63 bpm. Left axis deviation. ECG 05/25/2023 at 10:23 AM: A-fib 54 bpm with PVC versus aberrantly conducted complex. Left axis deviation. ECG 05/25/2023 at 1906: A-fib 51 bpm. Left axis deviation. Echo report and Holter report reviewed as noted above in HPI. Labs reviewed from 05/25/2023, notable for negative high-sensitivity troponin x3, unremarkable D-dimer, normal potassium, stable renal function, normal blood counts. Lipids from 05/11/2022 demonstrated excellent lipids. History and physical report reviewed. Chest x-ray 05/25/2023: No acute findings. Medications Administered Current Inpatient Medications Acetaminophen (Acetaminophen 325 Mg Tab) 650 mg PO Q4H PRN PRN Reason: Pain or Fever Stop: 06/24/23 13:43 Apixaban (Apixaban 5 Mg Tablet) 5 mg PO BID [facility] Stop: 06/24/23 20:59 Last Admin: 05/25/23 20:25 Dose: 5 mg Atorvastatin Calcium (Atorvastatin 40 Mg Tab) 40 mg PO QAM [facility] Stop: 06/25/23 08:59 Lisinopril/HCTZ (Lisinopril/Hctz 10/12.5mg Tab) 1 tab PO QAM [facility] Stop: 06/25/23 08:59 Nitroglycerin (Nitroglycerin Sl 0.4 Mg/Tab Tab) 0.4 mg SL Q5M PRN PRN Reason: Chest Pain Stop: 06/24/23 13:43 Ondansetron HCl (Ondansetron Inj 2 Mg/Ml 2 Ml Vial) 4 mg IV Q6H PRN PRN Reason: Nausea Stop: 06/24/23 13:43 Tamsulosin HCl (Tamsulosin Hcl 0.4 Mg Cap) 0.4 mg PO QAM [facility] Stop: 06/25/23 08:59 PG Care Time/CCT Total # of Minutes Spent Total Time Spent with Patient: Total time spent is greater than 50% in coordination of care (as documented) at patient's floor/unit and/or counseling patient: Coding Level of Care Code 14062 INT INP/OBS CARE 2/55MIN Diagnoses Substernal chest pain R07.2 Atrial fibrillation, permanent I48.21 Hypertension I10 Hypertension type: essential hypertension Coronary artery calcification I25.10; I25.84 Dyslipidemia E78.5 Time Spent (min) 60 (3) Hypertension Hypertension type: essential hypertension Qualified Code(s): I10 - Essential (primary) hypertension
--- NOTE | 2023-05-25 23:11 | XCELERA ---
[id number] \\[email or web address]_[email or web address]\[id number]___[id number]
[2023-05-26 06:15] LABS: Basophils # (auto) 0.06 K/uL (0.00-0.20); Basophils % (auto) 0.9 %; Eosinophils # (auto) 0.38 K/uL (0.00-0.50); Eosinophils % (auto) 5.8 %; Hematocrit (blood only) 43.8 % (42.0-52.0); Hemoglobin 15.8 g/dl (14.0-18.0); Immature Granulocytes # (auto) 0.01 K/uL (0.01-0.20); Immature Granulocytes % (auto) 0.2 %; Lymphocytes # (auto) 1.88 K/uL (1.20-3.40); Lymphocytes % (auto) 28.5 %; Mean Corpuscular Hemoglobin 33.2 pg (25.0-34.0); Mean Corpuscular Hgb Conc 36.1 g/dL (32.0-36.0); Mean Platelet Volume 9.7 fL (9.4-12.4); Monocytes % (auto) 10.6 %; Neutrophils # (auto) 3.57 K/uL (1.40-6.50); Platelet Count 152 K/uL (130-400); Red Blood Count 4.76 M/uL (4.70-6.10)
[2023-05-26 06:42] LABS: BUN Creatinine Ratio 15.8 (10-20); Creatinine Clr Calc Pharmacy 75.5 ml/min; Est GFR (African American) 77.8 ml/min; Est GFR (Non-African American) 67.1 ml/min; Potassium 4.1 mmol/L (3.5-5.1)
[2023-05-26 07:14] LABS: Estimated Average Glucose 111 mg/dl; Hemoglobin A1C 5.5 % (4.5-5.6)
[2023-05-26 08:20] VITALS: BP 117/79; TEMP 97.9; O2SAT 99
[2023-05-26] MEDS: APIXABAN 5 MG TABLET PO SCH (08:39)
[2023-05-26] MEDS ORDERED: TAMSULOSIN HCL 0.4 MG CAP PO SCH (09:00)
[2023-05-26] MEDS ORDERED: ATORVASTATIN 40 MG TAB PO SCH (09:00)
[2023-05-26] MEDS ORDERED: LISINOPRIL/HCTZ 10/12.5MG TAB PO SCH (09:00)
--- NOTE | 2023-05-26 10:04 | XCELERA ---
[id number] \\[email or web address]_[email or web address]\[id number]
--- NOTE | 2023-05-26 10:09 | Cardiology Progress Note ---
Date of Service May 26, 2023 Assessment & Plan (1) Substernal chest pain: (2) Atrial fibrillation, permanent: (3) Hypertension: (4) Coronary artery calcification: (5) Dyslipidemia: Plan ASSESSMENT/PLAN: 1. Chest pain: Atypical for ischemic heart disease. Occurred immediately after swallowing food. Negative stress echo with good exercise tolerance. Further ischemic evaluation not necessary at this time. Consider evaluation of esophagus, especially if symptoms recur. High-sensitivity troponin has been negative and no ischemic changes noted on ECG, despite prolonged episode of chest pain. 2. Atrial fibrillation: Appears permanent. Underwent cardioversion in the past but reverted to A-fib. Seems to be asymptomatic in this regard. Has not required rate controlling medications and has baseline mild bradycardia. Chronotropic response seems appropriate during stress test. Continue anticoagulation for stroke risk reduction. 3. Hypertension: Blood pressure has been well controlled. No changes recommended at this time. 4. Coronary artery calcification: Unclear when diagnosed. Would manage as if underlying CAD. Continue high intensity statin therapy and blood pressure management. Not on aspirin due to indication for anticoagulation therapy. 5. Dyslipidemia: Most recent LDL available for review today is excellent. Continue high intensity statin therapy. 6. Disposition: Patient care communicated with primary hospitalist, Dr. Merrill. Can be discharged home from a cardiac perspective. Continue to follow-up with Dr. Jo, his primary financial analysis manager, in the outpatient setting. Admission and Anticipated Discharge Date Admission Date: May 25, 2023 Subjective He denies chest pain, shortness of breath, syncope, near syncope, palpitations, edema, or bleeding. He tolerated dinner last night. He underwent stress echo this morning without chest pain. Graft he was unaccompanied. Physical Exam Physical Exam: Gen.: No acute distress. Alert and oriented. HEENT: Anicteric sclera. Neck: No JVD. Cardiac: No ventricular heave. Irregularly irregular. Normal S1-S2. No murmurs, rubs, or gallops. Pulmonary: Clear to auscultation bilaterally without wheezes, rales, or rhonchi. Abdomen: Soft, nontender, nondistended, with normoactive bowel sounds. No bruits noted. Extremities: 2+ radial pulses bilaterally. 2+ posterior tibialis pulses bilaterally. No edema or cyanosis. Psychiatric: Affect appears appropriate. Results & Data Vital Signs (Past 12 Hours) Vital Signs Temp Pulse Pulse Resp BP Pulse Ox O2 Del Method 05/26/23 08:19 36.6 C 50 L 17 117/79 99 Room Air 05/26/23 07:36 Room Air 05/26/23 07:11 50 L 05/26/23 04:07 36.5 C 52 L 18 127/82 95 Room Air 05/26/23 00:50 62 05/25/23 23:12 36.6 C 47 L 18 123/80 96 Room Air Laboratory Results Laboratory Results - last 24 hr 05/25/23 05/25/23 05/25/23 09:45 09:45 09:45 WBC 6.61 RBC 5.05 Hgb 16.6 Hct 45.3 MCV 89.7 MCH 32.9 MCHC 36.6 H RDW Std Deviation 38.2 RDW Coeff of Silverio 11.8 Plt Count 189 MPV 10.0 Immature Gran % (Auto) 0.2 Neut % (Auto) 52.6 Lymph % (Auto) 30.7 Grand % (Auto) 9.7 Eos % (Auto) 5.9 Baso % (Auto) 0.9 Neut # (Auto) 3.48 Lymph # (Auto) 2.03 Grand # (Auto) 0.64 H Eos # (Auto) 0.39 Baso # (Auto) 0.06 Immature Gran # (Auto) 0.01 PT 12.0 INR 1.1 APTT 28.8 PTT Ratio 1.0 D-Dimer < 190 Sodium 138 Potassium 4.1 Chloride 106 Carbon Dioxide 24 Anion Gap 8 BUN 20 Creatinine 1.05 Est Cr Clr Drug Dosing 83.0 Est GFR ( Amer) 85.9 Est GFR (Non-Af Amer) 74.1 BUN/Creatinine Ratio 19.0 Glucose 120 H Estimat Average Glucose Hemoglobin A1c Calcium 9.8 Magnesium 1.9 Total Bilirubin 1.4 H Direct Bilirubin 0.2 AST 22 ALT 24 Alkaline Phosphatase 67 Troponin I High Sens 5.2 Total Protein 6.5 Albumin 4.0 05/25/23 05/25/23 05/26/23 13:04 19:35 00:32 WBC RBC Hgb Hct MCV MCH MCHC RDW Std Deviation RDW Coeff of Silverio Plt Count MPV Immature Gran % (Auto) Neut % (Auto) Lymph % (Auto) Grand % (Auto) Eos % (Auto) Baso % (Auto) Neut # (Auto) Lymph # (Auto) Grand # (Auto) Eos # (Auto) Baso # (Auto) Immature Gran # (Auto) PT INR APTT PTT Ratio D-Dimer Sodium Potassium Chloride Carbon Dioxide Anion Gap BUN Creatinine Est Cr Clr Drug Dosing Est GFR ( Amer) Est GFR (Non-Af Amer) BUN/Creatinine Ratio Glucose Estimat Average Glucose Hemoglobin A1c Calcium Magnesium Total Bilirubin Direct Bilirubin AST ALT Alkaline Phosphatase Troponin I High Sens 5.4 8.2 7.2 Total Protein Albumin 05/26/23 05/26/23 05/26/23 05:47 05:47 05:47 WBC 6.60 RBC 4.76 Hgb 15.8 Hct 43.8 MCV 92.0 MCH 33.2 MCHC 36.1 H RDW Std Deviation 41.0 RDW Coeff of Silverio 12.0 Plt Count 152 MPV 9.7 Immature Gran % (Auto) 0.2 Neut % (Auto) 54.0 Lymph % (Auto) 28.5 Grand % (Auto) 10.6 Eos % (Auto) 5.8 Baso % (Auto) 0.9 Neut # (Auto) 3.57 Lymph # (Auto) 1.88 Grand # (Auto) 0.70 H Eos # (Auto) 0.38 Baso # (Auto) 0.06 Immature Gran # (Auto) 0.01 PT INR APTT PTT Ratio D-Dimer Sodium 139 Potassium 4.1 Chloride 107 Carbon Dioxide 27 Anion Gap 5 BUN 18 Creatinine 1.14 Est Cr Clr Drug Dosing 75.5 Est GFR ( Amer) 77.8 Est GFR (Non-Af Amer) 67.1 BUN/Creatinine Ratio 15.8 Glucose 98 Estimat Average Glucose 111 Hemoglobin A1c 5.5 Calcium 9.0 Magnesium 2.0 Total Bilirubin Direct Bilirubin AST ALT Alkaline Phosphatase Troponin I High Sens Total Protein Albumin Diagnostic Findings Labs reviewed: Normal renal function, normal potassium, normal blood counts, high-sensitivity troponin negative x4. ECG 05/26/2023 8:32 AM personally reviewed: Atrial fibrillation with PVC versus aberrantly conducted complexes with slow ventricular rate. Heart rate 54 bpm. Stress echo 05/26/2023: Negative for ischemia. Target heart rate attained. Good exercise tolerance. Medications Administered Current Inpatient Medications Acetaminophen (Acetaminophen 325 Mg Tab) 650 mg PO Q4H PRN PRN Reason: Pain or Fever Stop: 06/24/23 13:43 Apixaban (Apixaban 5 Mg Tablet) 5 mg PO BID [facility] Stop: 06/24/23 20:59 Last Admin: 05/26/23 08:39 Dose: 5 mg Atorvastatin Calcium (Atorvastatin 40 Mg Tab) 40 mg PO QAM [facility] Stop: 06/25/23 08:59 Last Admin: 05/26/23 08:39 Dose: 40 mg Lisinopril/HCTZ (Lisinopril/Hctz 10/12.5mg Tab) [facility] [place] Stop: 06/25/23 08:59 Last Admin: 05/26/23 08:39 Dose: 1 tab Nitroglycerin (Nitroglycerin Sl 0.4 Mg/Tab Tab) 0.4 mg SL Q5M PRN PRN Reason: Chest Pain Stop: 06/24/23 13:43 Ondansetron HCl (Ondansetron Inj 2 Mg/Ml 2 Ml Vial) 4 mg IV Q6H PRN PRN Reason: Nausea Stop: 06/24/23 13:43 Tamsulosin HCl (Tamsulosin Hcl 0.4 Mg Cap) 0.[address] [facility] Stop: 06/25/23 08:59 Last Admin: 05/26/23 08:39 Dose: 0.4 mg PG Care Time/CCT Total # of Minutes Spent Total Time Spent with Patient: Total time spent is greater than 50% in coordination of care (as documented) at patient's floor/unit and/or counseling patient: Coding Level of Care Code 95439 SUB INP/OBS CARE 2/35MIN Diagnoses Substernal chest pain R07.2 Atrial fibrillation, permanent I48.21 Hypertension I10 Hypertension type: essential hypertension Coronary artery calcification I25.10; I25.84 Dyslipidemia E78.5 (3) Hypertension Hypertension type: essential hypertension Qualified Code(s): I10 - Essential (primary) hypertension
[2023-05-26 11:19] VITALS: PULSE 51
--- NOTE | 2023-05-26 14:47 | Discharge Summary ---
Date of Service May 26, 2023 Admission HPI Per Admitting Provider 67 YOM with medical history of: Afib (on Apixaban), BPH with LUTS, HTN. Patient came to the EMD today via EMS for complaints of chest pain. The patient endorses that he went to [facility] this morning for breakfast with his friends, and took one bite of food. Following this, the patient endorses that he had onset of chest pain that felt like a pressure 3-5/10. The pain was located in the center of his chest and was without radiation. He thought he may have swallowed his food wrong, so he excused himself and went to the bathroom. In the Bathroom he noted that the pain increased and he did vomit x1. This did not help the pain, he went back to the table, the pain was getting worse and now associated with difficulty breathing and feeling sweaty. He went outside to "walk it off" and at that time the pain was at its maximum intensity of 9/10 and had him doubled over. There was no radiation of the pain, EMS was called. He was treated with oxygen, ASA, and sublingual nitroglycerine spray. Patient states that the pain then started to ease off as they were getting him in the back of the ambulance. He has been chest pain free since that time. In the EMD he had routine labs performed to include and D-dimer and HScTNI. ECG was without STEMI. He was given nitro-paste for elevated blood pressure. He endorses that he took his medications this morning and reports missing one dose of his Eliquis last week. He is on room air, and without dyspnea or tachycardia. BP now controlled. Patient denies ever smoking, 5-10 beers per week, He also endorses playing pickle ball at least 3 times per week without chest pain (last done on Tuesdayg23), cuts grass with push mower- last done this past weekend without any chest pain or difficulty breathing. Patient will be brought in for evaluation and trending his symptoms as well as HsCTNI and ECGs. Obtain ECHO for any RWMA. Pending hospital course and symptomatology further diagnostics will be determined for either EST or cath. Cardiology consultation for risk stratification appreciated. NPO until second set of cardiac enzymes as well as at Midnight. CODE: FULL Principal Diagnosis noncardiac chest pain Discharge Exam no additional chest pain eating well without issues Discharge Data Allergies Allergy/AdvReac Type Severity Reaction Status Date / Time atorvastatin AdvReac Intermediate "JOINTS Verified 04/20/23 08:52 ACHED ALL OVER". if he takes too much at the time Consultations 05/25/23 11:35 ED Decision to Admit Stat 05/25/23 13:44 Consult Cardiology Routine Hospital Course (1) Chest pain: Patient presents with about an hour worth of substernal chest pain that occurred during eating- peak pain was 9/10 and relieved with nitroglycerine/oxygen/aspirin DDX: normal stress echo, feel this is non-cardiac chest pain patient was counseled about possible GI causes of his discomfort he was offered referral to GI versus consideration of scheduling outpatient upper GI he wished to speak to his family physician prior to scheduling any of these additional tests - ECHO preserved ejection fraction,negative for RWMA - Continue with hypertensive control (2) Afib: Patient diagnosed with Afib in February, underwent cardioversion and holter monitor- has been in afib majority of time noted in March reading of external monitor. - [id number] >2- continue with Eliquis 5mg PO BID - Rate controlled without beta-rolando (3) Hypertension: Continue with CARLY/HCTZ and guideline based medical therapy for risk reduction (4) Dyslipidemia: chronic and stable,Continue atorvastatin (5) Elevated serum glucose: Elevated random glucose without the diagnosis of diabetes - HGB A1c in AM- 05/11/22 5.5- we will institute further diagnosis reinforced good behavioral changes Total Time Total Time Spent Total Time Spent (In Minutes): It required greater than 30 minutes to prepare this patient for discharge Discharge Plan Discharge Items Patient Disposition: Home - Self-Care Reason For Visit: CHEST PAIN EVALUATION Discharge Diagnosis: atypical chest pain, normal stress test Activity: Resume your previous activity Non-emergency contact: Primary Care Provider Call non-emergency contact if: your symptoms worsen Follow-up/Referrals: Harman Riley CRNP [Primary Care Provider] - 06/08/23 10:20 am Diet: Regular Addtl Attending Provider Instructions: your stress test was normal, please discuss with your primary care doctor for further advice regarding your symptoms consider holding your vitamin C as this may irritate your stomach Pending Studies at Discharge: No Stand-Alone Forms: [employer], Smoking Cessation Medications and DC Order Prescriptions: Continued Eliquis 5 mg tablet 5 mg PO BID Qty: 180 3RF multivitamin [Daily Multi-Vitamin] Tablet 1 tab PO QAM ascorbic acid (vitamin C) 500 mg tablet 500 mg PO QAM valacyclovir 1 gram tablet See Rx Instructions .ROUTE .COMPLEX PRN (Reason: Other) Rx Instructions: as directed atorvastatin 40 mg tablet 40 mg PO QAM tamsulosin 0.4 mg capsule 0.4 mg PO QAM lisinopril-hydrochlorothiazide 10-12.5 mg tablet 1 tab PO QAM Discharge Orders: Discharge Order (Routine); Ordered 05/26/23 Ordered By: Kenrick Fernando Admission Data Admit Date/Time: 05/25/23 12:05 Attending Provider: Kenrick Fernando Admit Provider: Lj Sifuentes Primary Care Provider: Harman Riley Other Providers: Lj Sifuentes ; Albin Mckay Other Interventions: Discharge Summary Assessment (RN) Last Done: 05/26/23 11:19 Coding Level of Care Code 59174 INP/OBS DISCH >30 MIN Diagnoses Chest pain R07.9 Afib I48.91 Hypertension I10 Hypertension type: essential hypertension Dyslipidemia E78.5 Elevated serum glucose R73.9
== END 2023-05-26 11:45 | disposition home or self-care (01) ==
LOC: 2N 09:36 → ED 09:36 → SUATTDRO 12:05 → 2N 13:15

== ENCOUNTER 2024-04-01 09:20 | Inpatient (IN) ==
--- NOTE | 2024-04-01 09:56 | Emergency Department Note ---
History of Present Illness General Chief complaint: Illness Stated complaint: FEVER, NO APPETITE, DIARRHEA Time Seen by Provider: 04/01/24 09:43 History of Present Illness Maximum Pain Intensity: 7 This is a 68-year-old male that presents to the emergency department via private vehicle with complaints of "fever, no appetite, diarrhea". The patient states that 1 week ago he began with diarrhea, followed by fever, then chills, then nausea. He states that diarrhea has resolved but notes that may be secondary to not eating as he notes decreased appetite. He also has a headache. He notes that at bedtime he seems to spike a fever and is soaking the sheets noting night sweats. Patient notes Tmax around 102 F. He did present to acute care last Tuesday for evaluation. Patient denies any chest pain or shortness of breath. No cough. No sore throat. Patient denies any rash or recent tick bites that he is aware of. No abdominal pain. He has perhaps a minor headache at the present time but feels tired overall. He does note a history of atrial fibrillation currently on Eliquis. Home Medications Medication Instructions Recorded Confirmed Type multivitamin (Daily Multi-Vitamin 1 tab PO QAM 01/25/20 04/01/24 History tablet) apixaban 5 mg tablet (Eliquis) 5 mg PO BID #180 tabs 04/20/23 04/01/24 Rx lisinopril 10 1 tab PO QAM #90 tabs 12/13/23 04/01/24 Rx mg-hydrochlorothiazide 12.5 mg tablet atorvastatin 40 mg tablet 40 mg PO QAM 12/14/23 04/01/24 History coenzyme Q10 30 mg capsule 30 mg PO QAM 12/14/23 04/01/24 History finasteride 5 mg tablet 5 mg PO QAM 12/14/23 04/01/24 History garlic 500 mg PO QAM 12/14/23 04/01/24 History tamsulosin 0.4 mg capsule 0.4 mg PO QAM #90 caps 02/08/24 04/01/24 Rx peg 3350-sod sulf,[id number] See Rx Instructions PO .COMPLEX #2 03/27/24 04/01/24 Rx 178.7-7.3-0.5-1.12-0.9 gram oral mL soln (Suflave) ondansetron HCl 4 mg tablet 4 mg PO Q8H PRN n/v 04/01/24 04/01/24 History Allergies Allergy/AdvReac Type Severity Reaction Status Date / Time No Known Allergies Allergy Verified 03/22/24 12:15 Past Med/Surg History Problem List (Updated 04/01/24 @ 11:55 by Eusebio Kilpatrick PA-C) Elevated procalcitonin (Acute) Hyponatremia (Acute) Elevated bilirubin (Acute) Decrease in appetite (Acute) Nausea (Acute) Diarrhea (Acute) Night sweat (Acute) Thrombocytopenia (Acute) Headache (Acute) Subjective fever (Acute) Encounter for pre-operative examination Anticoagulant long-term use Atrial fibrillation, permanent cardioversion x 1, follows with Dr. Jo, on Eliquis Snoring BPH w urinary obs/LUTS (Acute) Dyslipidemia (Acute) Nephrolithiasis (Acute) Dysplastic nevus (Chronic) Elevated PSA (Chronic) Hypertension (Chronic) Aortic atherosclerosis (Chronic) Coronary artery calcification (Chronic) Medical History Anticoagulant long-term use Dyslipidemia Hypertension Coronary artery calcification Atrial fibrillation cardioversion x 1, follows with Dr Orellana, on Eliquis Aortic atherosclerosis History of COVID-19 (~2021) home test, not hospitalized, resolved History of cardioversion (~03/17/23) @ [facility], unsuccessful, on Eliquis BPH (benign prostatic hyperplasia) History of urinary retention (~2022) required serrano catheter for 10 days Hx of diverticulitis of colon Surgical History H/O prostate biopsy x 3, benign Hx of vasectomy History of cystoscopy History of colostomy reversal History of tooth extraction History of tonsillectomy and adenoidectomy History of partial colectomy *with temporary colostomy>r/t diverticulitis History of arthroscopy of left knee History of foot surgery left History of colonoscopy Family History Mother Arthritis Father Coronary heart disease Dementia Unknown Benign polyp of large intestine Other Colonic polyp Hypertension Nephrolithiasis No family history of adverse response to anesthesia Prostate cancer Denies family history of Ovarian cancer Myocardial infarction Breast cancer Colorectal cancer Social History Smoking Status: Never smoker Second Hand Exposure: No; Do You Dip or Chew Tobacco: No; Hx Alcohol Use: Yes Alcohol type: beer Alcohol Intake Frequency: 2-3 x/Week Alcohol Intake Frequency Comment: weekends Hx Substance Use: No Preferred Language: Bulgarian Communication Ability: Effective Visual Impairment: No Limitations Hearing Ability: Normal Supervising Film Or Videotape Editor Required: No Beliefs That Will Affect Care: None marital status: Current Living Situation: Spouse current occupational status: retired Feels Safe at Home: Yes Childhood Exposure to Second-Hand Smoke: No Diet: regular Diet Comment: regular caffeine: Yes during the past year weight has: remained stable Dental Care, Regularly: Yes Physical Activity Frequency: Daily Seatbelt Use: always Sunscreen Use: Yes Assistive Devices: Denture - Upper and Glasses Review of Systems A total of 10 systems reviewed and were otherwise negative Physical Exam Vital Signs Vital Signs - 24 hr 04/01/24 09:30 04/01/24 09:48 04/01/24 09:50 Temperature 37.4 C Temperature Source Oral Pulse Rate 97 H 105 H Pulse Rate [Finger] Pulse Rate from SpO2 Sensor 105 H Pulse Rhythm Irregular Pulse Rhythm [Finger] Pulse Strength [Finger] Respiratory Rate 18 17 Respiratory Effort / Characteristics Non-Labored Respiratory Depth Normal Respiratory Pattern Regular Blood Pressure 116/87 Blood Pressure [Right Arm] Blood Pressure Mean 96 Blood Pressure Mean [Right Arm] Blood Pressure Position Lying Blood Pressure Position [Right Arm] Pulse Oximetry 99 99 97 Oxygen Delivery Method Room Air Room Air Sepsis Recent Fever Within 48 Hours Yes Sepsis New/Unexplained Change in Mental Status N/A Sepsis Action Taken by Nursing No Action Required 04/01/24 09:51 04/01/24 10:00 04/01/24 10:21 Temperature Temperature Source Pulse Rate 103 H 93 H Pulse Rate [Finger] Pulse Rate from SpO2 Sensor 98 H Pulse Rhythm Pulse Rhythm [Finger] Pulse Strength [Finger] Respiratory Rate 18 Respiratory Effort / Characteristics Respiratory Depth Respiratory Pattern Blood Pressure 110/82 Blood Pressure [Right Arm] Blood Pressure Mean 91 Blood Pressure Mean [Right Arm] Blood Pressure Position Blood Pressure Position [Right Arm] Pulse Oximetry 97 Oxygen Delivery Method Sepsis Recent Fever Within 48 Hours Sepsis New/Unexplained Change in Mental Status Sepsis Action Taken by Nursing 04/01/24 10:30 04/01/24 10:30 04/01/24 10:30 Temperature Temperature Source Pulse Rate 90 Pulse Rate [Finger] Pulse Rate from SpO2 Sensor 92 H Pulse Rhythm Pulse Rhythm [Finger] Pulse Strength [Finger] Respiratory Rate 20 Respiratory Effort / Characteristics Respiratory Depth Respiratory Pattern Blood Pressure 131/88 131/88 Blood Pressure [Right Arm] Blood Pressure Mean 103 103 Blood Pressure Mean [Right Arm] Blood Pressure Position Blood Pressure Position [Right Arm] Pulse Oximetry 98 Oxygen Delivery Method Sepsis Recent Fever Within 48 Hours Sepsis New/Unexplained Change in Mental Status Sepsis Action Taken by Nursing 04/01/24 10:30 04/01/24 11:00 04/01/24 11:00 Temperature Temperature Source Pulse Rate 114 H Pulse Rate [Finger] Pulse Rate from SpO2 Sensor 94 H Pulse Rhythm Pulse Rhythm [Finger] Pulse Strength [Finger] Respiratory Rate 23 Respiratory Effort / Characteristics Respiratory Depth Respiratory Pattern Blood Pressure 131/88 125/82 Blood Pressure [Right Arm] Blood Pressure Mean 103 90 Blood Pressure Mean [Right Arm] Blood Pressure Position Blood Pressure Position [Right Arm] Pulse Oximetry 93 Oxygen Delivery Method Sepsis Recent Fever Within 48 Hours Sepsis New/Unexplained Change in Mental Status Sepsis Action Taken by Nursing 04/01/24 11:03 04/01/24 11:27 04/01/24 11:31 Temperature Temperature Source Pulse Rate 95 H Pulse Rate [Finger] 92 H Pulse Rate from SpO2 Sensor 93 H Pulse Rhythm Pulse Rhythm [Finger] Irregular Pulse Strength [Finger] Normal Respiratory Rate 18 21 Respiratory Effort / Characteristics Non-Labored Respiratory Depth Normal Respiratory Pattern Regular Blood Pressure 115/79 Blood Pressure [Right Arm] 125/87 Blood Pressure Mean 82 Blood Pressure Mean [Right Arm] 99 Blood Pressure Position Blood Pressure Position [Right Arm] Pulse Oximetry 97 89 L Oxygen Delivery Method Room Air Sepsis Recent Fever Within 48 Hours Sepsis New/Unexplained Change in Mental Status Sepsis Action Taken by Nursing 04/01/24 11:31 04/01/24 11:36 04/01/24 12:06 Temperature Temperature Source Pulse Rate 84 93 H Pulse Rate [Finger] Pulse Rate from SpO2 Sensor 89 94 H Pulse Rhythm Pulse Rhythm [Finger] Pulse Strength [Finger] Respiratory Rate 20 18 Respiratory Effort / Characteristics Respiratory Depth Respiratory Pattern Blood Pressure 115/79 Blood Pressure [Right Arm] Blood Pressure Mean 82 Blood Pressure Mean [Right Arm] Blood Pressure Position Blood Pressure Position [Right Arm] Pulse Oximetry 98 95 Oxygen Delivery Method Sepsis Recent Fever Within 48 Hours Sepsis New/Unexplained Change in Mental Status Sepsis Action Taken by Nursing 04/01/24 12:24 04/01/24 12:30 04/01/24 12:30 Temperature Temperature Source Pulse Rate 100 H Pulse Rate [Finger] Pulse Rate from SpO2 Sensor 90 Pulse Rhythm Pulse Rhythm [Finger] Pulse Strength [Finger] Respiratory Rate 19 Respiratory Effort / Characteristics Respiratory Depth Respiratory Pattern Blood Pressure 109/74 109/74 Blood Pressure [Right Arm] Blood Pressure Mean 85 85 Blood Pressure Mean [Right Arm] Blood Pressure Position Blood Pressure Position [Right Arm] Pulse Oximetry 95 Oxygen Delivery Method Sepsis Recent Fever Within 48 Hours Sepsis New/Unexplained Change in Mental Status Sepsis Action Taken by Nursing 04/01/24 12:36 04/01/24 12:45 04/01/24 12:57 Temperature 37.0 C Temperature Source Oral Pulse Rate 90 90 Pulse Rate [Finger] Pulse Rate from SpO2 Sensor 88 89 Pulse Rhythm Pulse Rhythm [Finger] Pulse Strength [Finger] Respiratory Rate 18 22 Respiratory Effort / Characteristics Respiratory Depth Respiratory Pattern Blood Pressure Blood Pressure [Right Arm] Blood Pressure Mean Blood Pressure Mean [Right Arm] Blood Pressure Position Blood Pressure Position [Right Arm] Pulse Oximetry 94 92 Oxygen Delivery Method Sepsis Recent Fever Within 48 Hours Sepsis New/Unexplained Change in Mental Status Sepsis Action Taken by Nursing 04/01/24 13:01 04/01/24 13:01 04/01/24 13:03 Temperature Temperature Source Pulse Rate 95 H Pulse Rate [Finger] Pulse Rate from SpO2 Sensor 94 H Pulse Rhythm Pulse Rhythm [Finger] Pulse Strength [Finger] Respiratory Rate 16 Respiratory Effort / Characteristics Respiratory Depth Respiratory Pattern Blood Pressure 95/58 L 95/58 L Blood Pressure [Right Arm] Blood Pressure Mean 73 73 Blood Pressure Mean [Right Arm] Blood Pressure Position Blood Pressure Position [Right Arm] Pulse Oximetry 95 Oxygen Delivery Method Sepsis Recent Fever Within 48 Hours Sepsis New/Unexplained Change in Mental Status Sepsis Action Taken by Nursing 04/01/24 13:21 04/01/24 13:31 04/01/24 13:33 Temperature Temperature Source Pulse Rate 81 Pulse Rate [Finger] Pulse Rate from SpO2 Sensor 90 Pulse Rhythm Pulse Rhythm [Finger] Pulse Strength [Finger] Respiratory Rate 24 Respiratory Effort / Characteristics Respiratory Depth Respiratory Pattern Blood Pressure 86/62 L 86/62 L Blood Pressure [Right Arm] Blood Pressure Mean 70 73 Blood Pressure Mean [Right Arm] Blood Pressure Position Blood Pressure Position [Right Arm] Pulse Oximetry 95 Oxygen Delivery Method Sepsis Recent Fever Within 48 Hours Sepsis New/Unexplained Change in Mental Status Sepsis Action Taken by Nursing 04/01/24 13:34 04/01/24 13:39 04/01/24 13:42 Temperature 37.8 C H Temperature Source Oral Pulse Rate 78 89 Pulse Rate [Finger] Pulse Rate from SpO2 Sensor 95 H 88 Pulse Rhythm Pulse Rhythm [Finger] Pulse Strength [Finger] Respiratory Rate 20 18 Respiratory Effort / Characteristics Respiratory Depth Respiratory Pattern Blood Pressure Blood Pressure [Right Arm] Blood Pressure Mean Blood Pressure Mean [Right Arm] Blood Pressure Position Blood Pressure Position [Right Arm] Pulse Oximetry 94 96 Oxygen Delivery Method Sepsis Recent Fever Within 48 Hours Sepsis New/Unexplained Change in Mental Status Sepsis Action Taken by Nursing 04/01/24 13:45 04/01/24 14:00 04/01/24 14:00 Temperature Temperature Source Pulse Rate 60 Pulse Rate [Finger] Pulse Rate from SpO2 Sensor 88 Pulse Rhythm Pulse Rhythm [Finger] Pulse Strength [Finger] Respiratory Rate Respiratory Effort / Characteristics Respiratory Depth Respiratory Pattern Blood Pressure 98/62 L 83/64 L Blood Pressure [Right Arm] Blood Pressure Mean 72 66 Blood Pressure Mean [Right Arm] Blood Pressure Position Blood Pressure Position [Right Arm] Pulse Oximetry 98 Oxygen Delivery Method Sepsis Recent Fever Within 48 Hours Sepsis New/Unexplained Change in Mental Status Sepsis Action Taken by Nursing 04/01/24 14:15 04/01/24 14:15 04/01/24 14:25 Temperature Temperature Source Pulse Rate 74 Pulse Rate [Finger] Pulse Rate from SpO2 Sensor Pulse Rhythm Pulse Rhythm [Finger] Pulse Strength [Finger] Respiratory Rate Respiratory Effort / Characteristics Respiratory Depth Respiratory Pattern Blood Pressure 97/73 L 97/73 L Blood Pressure [Right Arm] Blood Pressure Mean 76 76 Blood Pressure Mean [Right Arm] Blood Pressure Position Blood Pressure Position [Right Arm] Pulse Oximetry Oxygen Delivery Method Sepsis Recent Fever Within 48 Hours Sepsis New/Unexplained Change in Mental Status Sepsis Action Taken by Nursing 04/01/24 14:27 04/01/24 14:30 04/01/24 14:45 Temperature Temperature Source Pulse Rate 87 Pulse Rate [Finger] Pulse Rate from SpO2 Sensor 88 Pulse Rhythm Pulse Rhythm [Finger] Pulse Strength [Finger] Respiratory Rate 22 Respiratory Effort / Characteristics Respiratory Depth Respiratory Pattern Blood Pressure 98/74 L 111/74 Blood Pressure [Right Arm] Blood Pressure Mean 83 88 Blood Pressure Mean [Right Arm] Blood Pressure Position Blood Pressure Position [Right Arm] Pulse Oximetry 99 Oxygen Delivery Method Sepsis Recent Fever Within 48 Hours Sepsis New/Unexplained Change in Mental Status Sepsis Action Taken by Nursing 04/01/24 14:45 04/01/24 14:45 04/01/24 14:58 Temperature Temperature Source Pulse Rate 100 H Pulse Rate [Finger] 93 H Pulse Rate from SpO2 Sensor 85 Pulse Rhythm Pulse Rhythm [Finger] Pulse Strength [Finger] Respiratory Rate 23 16 Respiratory Effort / Characteristics Respiratory Depth Respiratory Pattern Blood Pressure 111/74 Blood Pressure [Right Arm] 111/74 Blood Pressure Mean 88 Blood Pressure Mean [Right Arm] 86 Blood Pressure Position Blood Pressure Position [Right Arm] Pulse Oximetry 96 97 Oxygen Delivery Method Room Air Sepsis Recent Fever Within 48 Hours Sepsis New/Unexplained Change in Mental Status Sepsis Action Taken by Nursing 04/01/24 15:03 Temperature 37.1 C Temperature Source Oral Pulse Rate Pulse Rate [Finger] 94 H Pulse Rate from SpO2 Sensor Pulse Rhythm Pulse Rhythm [Finger] Irregular Pulse Strength [Finger] Normal Respiratory Rate 22 Respiratory Effort / Characteristics Non-Labored Respiratory Depth Normal Respiratory Pattern Regular Blood Pressure Blood Pressure [Right Arm] 121/76 Blood Pressure Mean Blood Pressure Mean [Right Arm] 91 Blood Pressure Position Blood Pressure Position [Right Arm] Lying Pulse Oximetry 97 Oxygen Delivery Method Room Air Sepsis Recent Fever Within 48 Hours Sepsis New/Unexplained Change in Mental Status Sepsis Action Taken by Nursing VITAL SIGNS - Vital signs and nursing notes were reviewed. Stable, afebrile. GENERAL -68-year-old male appearing his stated age who is in no acute distress but tired appearing. Communicates well with provider and answers questions appropriately. SKIN - Without rashes. No meningeal or petechial rash. HEAD - NC/AT. EYES - PERRL with EOMI bilaterally. Sclera anicteric. EARS - No deformities of external structures noted on gross examination bilaterally. External auditory canals without discharge or otorrhea. Tympanic membranes pearly jacobson without retraction or bulging. No fluid or purulent material visualized behind the TM. Handle of malleus, umbo, cone of light, pars tensa/flaccid all easily visualized. NOSE - Midline and without cyanosis. No epistaxis or purulent drainage noted. Septum midline without deviation or septal hematoma noted. MOUTH/OROPHARYNX - Without perioral cyanosis. Buccal mucosa pink and moist and without leukoplakia. Tongue midline with equal elevation of palate bilaterally. No tonsillar hypertrophy, erythema, or exudates noted. Good dentition noted. NECK - Neck with FROM. No lymphadenopathy. No nuchal rigidity. LUNGS -clear to auscultation. CARDIAC -irregular rate and rhythm. ABDOMEN - Abdominal contour normal without pulsations or visible masses. BS normoactive all four quadrants. No tenderness, palpable masses, hepatosplenomegaly, or ascites noted. EXTREMITIES - No clubbing or peripheral cyanosis. +5/5 strength noted in UE/LE bilaterally. NEUROLOGIC - Cranial nerves II through XII grossly intact. PSYCH -alert, oriented and pleasant on exam Course Administered Medications Vancomycin HCl 2,000 mg/ (Sodium Chloride) 540 mls @ 200 mls/hr IV NOW ONE Stop: 04/01/24 17:09 Last Admin: 04/01/24 14:59 Dose: 200 mls/hr Documented By: GARY Discontinued Medications Acetaminophen (Acetaminophen 500 Mg Tab) 500 mg PO NOW STA Stop: 04/01/24 11:16 Last Admin: 04/01/24 11:20 Dose: 500 mg Documented By: GARY Acetaminophen (Acetaminophen 325 Mg Tab) 650 mg PO NOW STA Stop: 04/01/24 15:11 Last Admin: 04/01/24 15:29 Dose: 650 mg Documented By: GARY Doxycycline Hyclate (Doxycycline Hyclate 100 Mg Cap) 100 mg PO NOW STA Stop: 04/01/24 11:46 Last Admin: 04/01/24 11:50 Dose: 100 mg Documented By: GARY Sodium Chloride (Nss) 1,000 mls @ 999 mls/hr IV .Q1H1M BALA Stop: 04/01/24 11:00 Last Infusion: 04/01/24 11:05 Dose: Infused Documented By: Admin: 04/01/24 10:04 Dose: 999 mls/hr Documented By: GARY Ceftriaxone Sodium (Rocephin) 2,000 mg in 50 mls @ 100 mls/hr IV NOW STA Stop: 04/01/24 12:14 Last Infusion: 04/01/24 12:40 Dose: Infused Documented By: Admin: 04/01/24 11:51 Dose: 100 mls/hr Documented By: GARY Sodium Chloride (Nss) 1,000 mls @ 999 mls/hr IV .Q1H1M ONE Stop: 04/01/24 14:54 Last Infusion: 04/01/24 14:59 Dose: Infused Documented By: Admin: 04/01/24 14:00 Dose: 999 mls/hr Documented By: NEHA Piperacillin Sod/Tazobactam (Sod 4.5 gm/ Dextrose) 100 mls @ 200 mls/hr IV NOW ONE; Protocol Stop: 04/01/24 14:57 Last Admin: 04/01/24 15:05 Dose: Not Given Documented By: RUBY Piperacillin Sod/Tazobactam (Sod 4.5 gm/ Dextrose) 100 mls @ 25 mls/hr IV Q8H BALA; Protocol Stop: 04/03/24 14:29 Last Admin: 04/01/24 15:05 Dose: Not Given Documented By: RUBY Ioversol (Optiray 320 100ml) 94 ml IV ONCE ONE Stop: 04/01/24 15:14 Last Admin: 04/01/24 15:13 Dose: 94 ml Documented By: ALBERTO Medical Decision Making Laboratory Data 04/01/24 09:59 04/01/24 09:50 Lab Results 04/01/24 04/01/24 04/01/24 Range/Units 09:50 09:59 11:55 WBC 9.81 (4.8-10.8) K/ul RBC 4.94 (4.70-6.10) M/uL Hgb 15.7 (14.0-18.0) g/dl Hct 42.7 (42.0-52.0) % MCV 86.4 (80.0-100.0) fL MCH 31.8 (25.0-34.0) pg MCHC 36.8 H (32.0-36.0) g/dL RDW Std Deviation 38.0 (36.4-46.3) fL RDW Coeff of Silverio 11.9 (11.5-14.5) % Plt Count 108 L (130-400) K/uL MPV 10.7 (9.4-12.4) fL Immature Gran % (Auto) 0.5 % Neut % (Auto) 79.6 % Lymph % (Auto) 10.4 % [place] % (Auto) 9.2 % Eos % (Auto) 0.1 % Baso % (Auto) 0.2 % Neut # (Auto) 7.81 H (1.40-6.50) K/uL Lymph # (Auto) 1.02 L (1.20-3.40) K/uL [place] # (Auto) 0.90 H (0.11-0.59) K/uL Eos # (Auto) 0.01 (0.00-0.50) K/uL Baso # (Auto) 0.02 (0.00-0.20) K/uL Immature Gran # (Auto) 0.05 (0.01-0.20) K/uL Toxic Granulation 1+ Dohle Bodies 1+ Sodium 131 L (136-145) mmol/L Potassium 3.7 (3.5-5.1) mmol/L Chloride 94 L (98-107) mmol/L Carbon Dioxide 28 (21-32) mmol/L Anion Gap 9 (3-11) BUN 19 (6-23) mg/dl Creatinine 1.25 (0.6-1.4) mg/dl Est Cr Clr Drug Dosing 66.5 ml/min Est GFR ( Amer) 69.1 ml/min Est GFR (Non-Af Amer) 59.6 ml/min BUN/Creatinine Ratio 15.2 (10-20) Glucose 112 H (70-99(Fasting)) mg/dl Lactate 1.3 (0.4-2.0) mmol/L Calcium 8.8 (8.6-10.3) mg/dl Magnesium 1.7 (1.7-2.4) mg/dl Total Bilirubin 1.6 H (0.2-1.0) mg/dl AST 36 (13-39) U/L ALT 33 (7-52) U/L Alkaline Phosphatase 69 (34-104) U/L Troponin I High Sens 8.8 (0-20) pg/ml Total Protein 6.5 (6.0-8.3) gm/dl Albumin 3.6 (3.4-5.0) gm/dl Globulin 2.9 (2.5-4.0) gm/dl Albumin/Globulin Ratio 1.2 (0.9-2) Lipase 21 (11-82) U/L Procalcitonin 0.60 H (0-0.5) ng/ml TSH 1.090 (0.300-4.500) uIu/ml Urine Color Dark Yellow Urine Appearance Clear (Clear) Urine pH 5.5 (4.5-7.5) Ur Specific [place] 1.020 (1.000-1.030) Urine Protein 1+ H (Negative) Urine Glucose (UA) Negative (Negative) Urine Ketones Trace H (Negative) Urine Blood Negative (Negative) Urine Nitrite Negative (Negative) Urine Bilirubin Negative (Negative) Urine Urobilinogen Negative (Negative) Ur Leukocyte Esterase Trace H (Negative) Urine WBC (Auto) 0-5 (0-5) /hpf Urine RBC (Auto) 3-5 H (0-2) /hpf U Hyaline Cast (Auto) 0-2 (0-2) /lpf U Epithel Cells (Auto) 0-2 (0-2) /hpf Urine Bacteria (Auto) None Seen (None Seen) Nasal Screen MRSA (PCR) (Negative) Adenovirus (PCR) Not Detected (NotDetected) Anaplasma Smear See Comment Babesia Smear See Comment B. pertussis DNA (PCR) Not Detected (NotDetected) B.parapertussis DNA PCR Not Detected (NotDetected) Lyme Disease Screen Negative (Negative) C. pneumoniae DNA (PCR) Not Detected (NotDetected) Coronavirus OC43 (PCR) Not Detected (NotDetected) Coronavirus HKU1 (PCR) Not Detected (NotDetected) Coronavirus 229E (PCR) Not Detected (NotDetected) SARS-CoV-2 (PCR) Not Detected (NotDetected) Coronavirus NL63 (PCR) Not Detected (NotDetected) Human Metapneumovir PCR Not Detected (NotDetected) Influenza Type A (PCR) Not Detected (NotDetected) Influenza Type B (PCR) Not Detected (NotDetected) M. pneumoniae (PCR) Not Detected (NotDetected) Parainfluenza 1 (PCR) Not Detected (NotDetected) Parainfluenza 2 (PCR) Not Detected (NotDetected) Parainfluenza 3 (PCR) Not Detected (NotDetected) Parainfluenza 4 (PCR) Not Detected (NotDetected) RSV (PCR) Not Detected (NotDetected) Entero/Rhino (PCR) Not Detected (NotDetected) 04/01/24 Range/Units 15:00 WBC (4.8-10.8) K/ul RBC (4.70-6.10) M/uL Hgb (14.0-18.0) g/dl Hct (42.0-52.0) % MCV (80.0-100.0) fL MCH (25.0-34.0) pg MCHC (32.0-36.0) g/dL RDW Std Deviation (36.4-46.3) fL RDW Coeff of Silverio (11.5-14.5) % Plt Count (130-400) K/uL MPV (9.4-12.4) fL Immature Gran % (Auto) % Neut % (Auto) % Lymph % (Auto) % [place] % (Auto) % Eos % (Auto) % Baso % (Auto) % Neut # (Auto) (1.40-6.50) K/uL Lymph # (Auto) (1.20-3.40) K/uL [place] # (Auto) (0.11-0.59) K/uL Eos # (Auto) (0.00-0.50) K/uL Baso # (Auto) (0.00-0.20) K/uL Immature Gran # (Auto) (0.01-0.20) K/uL Toxic Granulation Dohle Bodies Sodium (136-145) mmol/L Potassium (3.5-5.1) mmol/L Chloride (98-107) mmol/L Carbon Dioxide (21-32) mmol/L Anion Gap (3-11) BUN (6-23) mg/dl Creatinine (0.6-1.4) mg/dl Est Cr Clr Drug Dosing ml/min Est GFR ( Amer) ml/min Est GFR (Non-Af Amer) ml/min BUN/Creatinine Ratio (10-20) Glucose (70-99(Fasting)) mg/dl Lactate (0.4-2.0) mmol/L Calcium (8.6-10.3) mg/dl Magnesium (1.7-2.4) mg/dl Total Bilirubin (0.2-1.0) mg/dl AST (13-39) U/L ALT (7-52) U/L Alkaline Phosphatase (34-104) U/L Troponin I High Sens (0-20) pg/ml Total Protein (6.0-8.3) gm/dl Albumin (3.4-5.0) gm/dl Globulin (2.5-4.0) gm/dl Albumin/Globulin Ratio (0.9-2) Lipase (11-82) U/L Procalcitonin (0-0.5) ng/ml TSH (0.300-4.500) uIu/ml Urine Color Urine Appearance (Clear) Urine pH (4.5-7.5) Ur Specific [place] (1.000-1.030) Urine Protein (Negative) Urine Glucose (UA) (Negative) Urine Ketones (Negative) Urine Blood (Negative) Urine Nitrite (Negative) Urine Bilirubin (Negative) Urine Urobilinogen (Negative) Ur Leukocyte Esterase (Negative) Urine WBC (Auto) (0-5) /hpf Urine RBC (Auto) (0-2) /hpf U Hyaline Cast (Auto) (0-2) /lpf U Epithel Cells (Auto) (0-2) /hpf Urine Bacteria (Auto) (None Seen) Nasal Screen MRSA (PCR) Negative (Negative) Adenovirus (PCR) (NotDetected) Anaplasma Smear Babesia Smear B. pertussis DNA (PCR) (NotDetected) B.parapertussis DNA PCR (NotDetected) Lyme Disease Screen (Negative) C. pneumoniae DNA (PCR) (NotDetected) Coronavirus OC43 (PCR) (NotDetected) Coronavirus HKU1 (PCR) (NotDetected) Coronavirus 229E (PCR) (NotDetected) SARS-CoV-2 (PCR) (NotDetected) Coronavirus NL63 (PCR) (NotDetected) Human Metapneumovir PCR (NotDetected) Influenza Type A (PCR) (NotDetected) Influenza Type B (PCR) (NotDetected) M. pneumoniae (PCR) (NotDetected) Parainfluenza 1 (PCR) (NotDetected) Parainfluenza 2 (PCR) (NotDetected) Parainfluenza 3 (PCR) (NotDetected) Parainfluenza 4 (PCR) (NotDetected) RSV (PCR) (NotDetected) Entero/Rhino (PCR) (NotDetected) Imaging Data Radiologist's Impression: Chest X-Ray 04/01/24 09:50 XR chest 1V portable CLINICAL HISTORY: fever TECHNIQUE: Single frontal radiograph of the chest was obtained. Comparison: Comparison is made to chest radiograph 05/25/2023 FINDINGS: No lines and tubes are seen. Cardiomegaly is noted. The lungs are clear. No evidence of pleural effusion or pneumothorax. IMPRESSION: No acute abnormalities and in particular no radiographic evidence of pneumonia. ACT 112: Negative or not required by law. Electronically signed by: Jesu Issa M.D. 04/01/2024 10:16 AM Abdomen/Pelvis CT 04/01/24 14:54 CT abd pelvis IV con only CLINICAL HISTORY: sepsis TECHNIQUE: Helical axial images of the abdomen and pelvis were obtained and displayed. Automated dose lowering techniques and/or adjustment according to patient size were utilized for this exam. This exam was performed with intravenous contrast. CT DOSE: 1380.37 mGy.cm COMPARISON: Comparison is made to CT abdomen pelvis 06/13/2023 FINDINGS: Lower chest: Bibasilar atelectasis versus scarring is seen. Liver: Hepatic cysts are seen. Gallbladder and biliary tree: No calcified gallstones. Normal caliber wall. No intra- or extrahepatic biliary ductal dilation. Pancreas: Unremarkable, no focal lesions. Spleen: Splenomegaly is noted, the spleen measures 16 cm. Adrenals: Unremarkable. Kidneys and ureters: Left atelectasis is seen. Bladder: Trabeculated bladder wall compatible with chronic outlet obstruction. Reproductive organs: Prostatomegaly is seen. Bowel: Diverticulosis is seen without diverticulitis. The appendix is normal. Sigmoid colonic resection is seen. A small hiatal hernia is seen. Lymph nodes Retroperitoneal: Subcentimeter lymph nodes are noted. Pelvic: Unremarkable. Mesenteric: Unremarkable. Peritoneum: Normal. Vessels: Atherosclerotic calcifications are seen. Abdominal wall: Left lateral fat-containing inguinal hernia is seen. Bones: Degenerative changes in the visualized spine. IMPRESSION: 1. No acute abnormality to explain sepsis. 2. Diverticulosis without diverticulitis. 3. Trabeculated bladder compatible with chronic outlet obstruction. 4. Additional findings as above. ACT 112: Negative or not required by law. Electronically signed by: Jesu Issa M.D. 04/01/2024 4:02 PM [facility] Narrative Patient was seen and evaluated as above in room A11b. Review was performed of nursing notes and vital signs. I did review pertinent previous visits and patient history. After obtaining a thorough history and physical examination the above work up was performed. Patient presents to us today for evaluation of diarrhea, fevers, chills, nausea, diarrhea, night sweats x 1 week. Patient notes that his symptoms persist despite time. Although diarrhea has resolved, he attributes this to likely secondary to not eating as he has lost his appetite. On assessment the patient is tired in appearance. He appears mildly diaphoretic. He has no reproducible tenderness on assessment. Borderline tachycardic at 97, otherwise stable vital signs. He is afebrile. Oral acetaminophen ordered for the patient's headache. No nuchal rigidity. No photophobia. Options of care were discussed with the patient. Noting his presenting symptoms and duration of symptoms, we will proceed with thorough workup at this time. IV fluids ordered to rehydrate. Labs reveal no leukocytosis. Mild thrombocytopenia 108. Procalcitonin 0.6. Lactate returned normal. Peripheral smear for anaplasmosis/babesiosis normal with send out DNA/PCR testing pending. There is mild hyponatremia 131. Mild hyperglycemia 112. Mild T. bili elevation at 1.6. Troponin normal. Procalcitonin elevated at 0.60. Although the patient does not yield the septic vital signs at the present time, noting the patient's clinical appearance and symptoms concern for infection is present. TSH reveals euthyroid state. Although the peripheral smear is negative, anaplasmosis is still in the differential at this time noting the patient's thrombocytopenia, hyponatremia in the setting of his symptoms that he presents with today. Blood cultures are also pending. I will start the patient on empiric broad-spectrum IV antibiotics to include ceftriaxone as well as coverage for other tickborne illnesses via oral doxycycline. We will proceed with inpatient management. Case discussed with the hospitalist service. Please refer to further documentation regarding his stay. Case was discussed with the attending physician. EKG was reviewed by myself and found to be atrial fibrillation at a rate of 92 beats per minute. QRS 90. QTc 435. No ST elevation. Atrial fibrillation is not new when compared to EKG of 05/26/2023. GCS: 15 In the evaluation and treatment of this patient the following differential diagnoses were entertained: Gastroenteritis, colitis, viral illness, pneumonia, bacteremia, UTI, among others. It was noted later in the patient's stay that there was a change in vital sign between 1 PM and 2 PM. BP dropped 86/62. Temp evelyn to 37.8. I discussed this with Dr. Henning, hospitalist. Second liter fluid bolus ordered by Dr. Henning. We will continue to monitor closely. Repeat blood pressure at 1445 was 111/74. Patient has responded well to the IV fluids. Impression & Plan Subjective fever, Headache, Thrombocytopenia, Night sweat, Diarrhea, Nausea, Decrease in appetite, Elevated bilirubin, Hyponatremia, Elevated procalcitonin Discharge Plan Visit Data Chief Complaint: Illness Stated Complaint: FEVER, NO APPETITE, DIARRHEA ED Provider: Josue Kerns ED Midlevel Provider: Eusebio Kilpatrick Discharge Problem: Subjective fever, Headache, Thrombocytopenia, Night sweat, Diarrhea, Nausea, Decrease in appetite, Elevated bilirubin, Hyponatremia, Elevated procalcitonin Patient Disposition: Admitted As Inpatient Condition: Good Discharge Instructions Interventions: ED Discharge Assessment Last Done: 04/01/24 16:14
[2024-04-01] MEDS: SODIUM CHLORIDE 0.9% 1,000 ML IV SCH (10:04)
--- NOTE | 2024-04-01 10:17 | XRay Report ---
XR chest 1V portable CLINICAL HISTORY: fever TECHNIQUE: Single frontal radiograph of the chest was obtained. Comparison: Comparison is made to chest radiograph 05/25/2023 FINDINGS: No lines and tubes are seen. Cardiomegaly is noted. The lungs are clear. No evidence of pleural effus ion or pneumothorax. IMPRESSION: No acute abnormalities and in particular no radiographic evidence of pneumonia. ACT 112: Negative or not required by law. Electronically signed by: Jesu Issa M.D. 04/01/2024 10:16 AM
[2024-04-01 10:55] LABS: Hematocrit (blood only) 42.7 % (42.0-52.0); Hemoglobin 15.7 g/dl (14.0-18.0); Mean Corpuscular Hemoglobin 31.8 pg (25.0-34.0); Mean Corpuscular Hgb Conc 36.8 g/dL (32.0-36.0); Mean Corpuscular Volume 86.4 fL (80.0-100.0); Mean Platelet Volume 10.7 fL (9.4-12.4); Platelet Count 108 K/uL (130-400); RDW Coefficient of Variation 11.9 % (11.5-14.5); Red Blood Count 4.94 M/uL (4.70-6.10); White Blood Count 9.81 K/ul (4.8-10.8)
[2024-04-01 11:09] LABS: Basophils # (auto) 0.02 K/uL (0.00-0.20); Basophils % (auto) 0.2 %; Dohle Bodies 1+; Eosinophils # (auto) 0.01 K/uL (0.00-0.50); Eosinophils % (auto) 0.1 %; Immature Granulocytes # (auto) 0.05 K/uL (0.01-0.20); Immature Granulocytes % (auto) 0.5 %; Lymphocytes # (auto) 1.02 K/uL (1.20-3.40); Lymphocytes % (auto) 10.4 %; Monocytes % (auto) 9.2 %; Neutrophils # (auto) 7.81 K/uL (1.40-6.50); Neutrophils % (auto) 79.6 %; Toxic Granulation 1+
[2024-04-01 11:17] LABS: Albumin Level 3.6 gm/dl (3.4-5.0); Bilirubin,Total 1.6 mg/dl (0.2-1.0); Calcium 8.8 mg/dl (8.6-10.3); Magnesium 1.7 mg/dl (1.7-2.4); Potassium 3.7 mmol/L (3.5-5.1)
[2024-04-01] MEDS: ACETAMINOPHEN 500 MG TAB PO STA (11:20)
[2024-04-01 11:23] LABS: Albumin Globulin Ratio 1.2 (0.9-2); BUN Creatinine Ratio 15.2 (10-20); Creatinine Clr Calc Pharmacy 66.5 ml/min; Est GFR (African American) 69.1 ml/min; Est GFR (Non-African American) 59.6 ml/min; Globulin 2.9 gm/dl (2.5-4.0); Total Protein 6.5 gm/dl (6.0-8.3)
[2024-04-01 11:29] LABS: Troponin I High Sensitivity 8.8 pg/ml (0-20)
[2024-04-01 11:32] LABS: Adenovirus PCR Not Detected (NotDetected); Bordetella parapertussis PCR Not Detected (NotDetected); Bordetella pertussis PCR Not Detected (NotDetected); Chlamydia pneumoniae PCR Not Detected (NotDetected); Coronavirus 229E PCR Not Detected (NotDetected); Coronavirus CoV-2 (COVID19)PCR Not Detected (NotDetected); Coronavirus HKU1 PCR Not Detected (NotDetected); Coronavirus NL63 PCR Not Detected (NotDetected); Coronavirus OC43PCR Not Detected (NotDetected); Human Metapneumovirus PCR Not Detected (NotDetected); Influenza A PCR Not Detected (NotDetected); Influenza B PCR Not Detected (NotDetected); Mycoplasma pneumoniae PCR Not Detected (NotDetected); Parainfluenza Virus 1 PCR Not Detected (NotDetected); Parainfluenza Virus 2 PCR Not Detected (NotDetected); Parainfluenza Virus 3 PCR Not Detected (NotDetected); Parainfluenza Virus 4 PCR Not Detected (NotDetected); Respiratory Syncytial VirusPCR Not Detected (NotDetected); Rhinovirus/Enterovirus PCR Not Detected (NotDetected)
[2024-04-01 11:33] LABS: Lyme Screen Rflx Confirmation Negative (Negative)
[2024-04-01 11:39] LABS: Thyroid Stimulating Hormone 1.09 uIu/ml (0.300-4.500)
--- NOTE | 2024-04-01 11:47 | Emergency Department Note ---
ED Visit Note I was consulted by the Advanced Practice Provider. The case was discussed at length. I personally made/approved the management plan and take responsibility for the patient management. I performed a substantive portion of the visit. This includes the aspects of: [-I independently interpreted the following studies:][Chest x-ray does not show pneumonia, CHF or pneumothorax.] The patient presents with flulike symptoms. 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 We have reference anaplasmosis tests pending. The patient will be treated with doxycycline and ceftriaxone. Given his complaints, given his presentation, a hospital stay would be warranted. .
[2024-04-01] MEDS: DOXYCYCLINE HYCLATE 100 MG CAP PO STA (11:50)
[2024-04-01] MEDS: cefTRIAXone SODIUM 2,000 MG/50 ML BAG IV STA (11:51)
--- NOTE | 2024-04-01 12:32 | History & Physical Report ---
Date of Service April 01, 2024 Assessment & Plan (1) Febrile illness: (2) Hypotension: (3) Wheezing: (4) Hypertension: (5) Thrombocytopenia: (6) Atrial fibrillation, permanent: Plan 68 yo M with PMHx of AFib, HTN, HLD, BPH presents to the hospital for the evaluation of fever, loss of appetite, and diarrhea for about 1 week. Pt stated that about 1 week ago, he started with chills followed by diarrhea for about three days. #Febrile illness #Hypotension - admit to PCU - monitor on tele - UA unremarkable - CXR clear - BCx pending - tickborne illness panel pending (concerning in the setting of thrombocytopenia) - case discussed with ID, recs appreciated - CT abd / pelvis w/ contrast - unremarkable for infectious source, splenomegaly noted - cont CTX / Doxy, add vanc - s/p 2L NS, BP stable #Wheezing - pt notes wheezing after CT scan. he denied contrast dye allergy - hold further fluids right now - prn albuterol #Thrombocytopenia - monitor closely #HTN - hold BP meds #HLD - cont statin #AFib - cont Eliquis #BPH - hold tamsulosin History of Present Illness Chief Complaint: fever, diarrhea, nausea Primary Care Provider: LACHELLE Alvarez 68 yo M with PMHx of AFib, HTN, HLD, BPH presents to the hospital for the evaluation of fever, loss of appetite, and diarrhea for about 1 week. Pt stated that about 1 week ago, he started with chills followed by diarrhea for about three days. The initial two days he had constant watery stool then it tapered off after he lost his appetite. He was also feeling quite nauseous prompting him to go to urgent care. He was sent home with rajani. He continued to have fevers as high as 102F. He has chills and night sweats. Over the past 3 to 4 days he has been having headaches. He denied any recent travel or sick contacts. He also has not eaten for about 1 week. He has maintained hydration with Pedialyte/ Gatorade / water. He also denied recent antibiotics. He does not recall any tick bites. Though is home [facility], he has not ventured in there. Currently he feels severely fatigued. He denied chest pain, dyspnea, palpitations, abdominal pain. In the ED, he received 1L NS, CTX, Doxy. Shortly after he became hypotensive, requiring additional 1L NS. Allergies Allergy/AdvReac Type Severity Reaction Status Date / Time No Known Allergies Allergy Verified 03/22/24 12:15 Home Medications Medication Instructions Recorded Confirmed Type multivitamin (Daily Multi-Vitamin 1 tab PO QAM 01/25/20 04/01/24 History tablet) apixaban 5 mg tablet (Eliquis) 5 mg PO BID #180 tabs 04/20/23 04/01/24 Rx lisinopril 10 1 tab PO QAM #90 tabs 12/13/23 04/01/24 Rx mg-hydrochlorothiazide 12.5 mg tablet atorvastatin 40 mg tablet 40 mg PO QAM 12/14/23 04/01/24 History coenzyme Q10 30 mg capsule 30 mg PO QAM 12/14/23 04/01/24 History finasteride 5 mg tablet 5 mg PO QAM 12/14/23 04/01/24 History garlic 500 mg PO QAM 12/14/23 04/01/24 History tamsulosin 0.4 mg capsule 0.4 mg PO QAM #90 caps 02/08/24 04/01/24 Rx peg 3350-sod [id number] See Rx Instructions PO .COMPLEX #2 03/27/24 04/01/24 Rx 178.7-7.3-0.5-1.12-0.9 gram oral mL soln (Suflave) ondansetron HCl 4 mg tablet 4 mg PO Q8H PRN n/v 04/01/24 04/01/24 History Past Med/Surg History Problem List (Updated 04/01/24 @ 16:46 by Lillie Henning MD) Wheezing Hypotension Febrile illness Elevated procalcitonin (Acute) Hyponatremia (Acute) Elevated bilirubin (Acute) Decrease in appetite (Acute) Nausea (Acute) Diarrhea (Acute) Night sweat (Acute) Thrombocytopenia (Acute) Headache (Acute) Subjective fever (Acute) Encounter for pre-operative examination Anticoagulant long-term use Atrial fibrillation, permanent cardioversion x 1, follows with Dr. Jo, on Eliquis Snoring BPH w urinary obs/LUTS (Acute) Dyslipidemia (Acute) Nephrolithiasis (Acute) Dysplastic nevus (Chronic) Elevated PSA (Chronic) Hypertension (Chronic) Aortic atherosclerosis (Chronic) Coronary artery calcification (Chronic) Medical History Anticoagulant long-term use Dyslipidemia Hypertension Coronary artery calcification Atrial fibrillation cardioversion x 1, follows with Dr Orellana, on Eliquis Aortic atherosclerosis History of COVID-19 (~2021) home test, not hospitalized, resolved History of cardioversion (~03/17/23) @ [facility], unsuccessful, on Eliquis BPH (benign prostatic hyperplasia) History of urinary retention (~2022) required serrano catheter for 10 days Hx of diverticulitis of colon Surgical History H/O prostate biopsy x 3, benign Hx of vasectomy History of cystoscopy History of colostomy reversal History of tooth extraction History of tonsillectomy and adenoidectomy History of partial colectomy *with temporary colostomy>r/t diverticulitis History of arthroscopy of left knee History of foot surgery left History of colonoscopy Family History Mother Arthritis Father Coronary heart disease Dementia Unknown Benign polyp of large intestine Other Colonic polyp Hypertension Nephrolithiasis No family history of adverse response to anesthesia Prostate cancer Denies family history of Ovarian cancer Myocardial infarction Breast cancer Colorectal cancer Social History Smoking Status: Never smoker Second Hand Exposure: No; Do You Dip or Chew Tobacco: No; Hx Alcohol Use: Yes Alcohol type: beer Alcohol Intake Frequency: 2-3 x/Week Alcohol Intake Frequency Comment: weekends Hx Substance Use: No Preferred Language: Georgian Communication Ability: Effective Visual Impairment: No Limitations Hearing Ability: Normal Brand Leader Required: No Beliefs That Will Affect Care: None marital status: Current Living Situation: Spouse current occupational status: retired Feels Safe at Home: Yes Childhood Exposure to Second-Hand Smoke: No Diet: regular Diet Comment: regular caffeine: Yes during the past year weight has: remained stable Dental Care, Regularly: Yes Physical Activity Frequency: Daily Seatbelt Use: always Sunscreen Use: Yes Assistive Devices: Denture - Upper and Glasses Review of Systems Review of Systems: comprehensive ROS reviewed Physical Exam Physical Exam: Gen: appears ill, speaking in full sentences HEENT: normocephalic / atraumatic, moist mucous membranes, anicteric CVS: s1s2 nl, RRR, no murmurs / rubs / gallps Lungs: CTAB (expiratory wheezing noted after CT scan) Abd: protuberant, normal bowel sounds, soft, nontender, no rigidity / guarding / rebound Ext: no edema Neuro: no nuchal rigidity, awake / alert Results & Data Results & Data Vital Signs (Past 12 Hours) Vital Signs Temp Pulse Pulse Resp BP BP Pulse Ox 04/01/24 11:03 92 H 18 125/87 97 04/01/24 10:21 93 H 04/01/24 09:50 97 04/01/24 09:30 37.4 C 97 H 18 116/87 99 O2 Del Method 04/01/24 11:03 Room Air 04/01/24 10:21 04/01/24 09:50 Room Air 04/01/24 09:30 Room Air Laboratory Results Abnormal lab results 04/01/24 04/01/24 04/01/24 Range/Units 09:50 09:59 11:55 MCHC 36.8 H (32.0-36.0) g/dL Plt Count 108 L (130-400) K/uL Neut # (Auto) 7.81 H (1.40-6.50) K/uL Lymph # (Auto) 1.02 L (1.20-3.40) K/uL Starke # (Auto) 0.90 H (0.11-0.59) K/uL Sodium 131 L (136-145) mmol/L Chloride 94 L (98-107) mmol/L Glucose 112 H (70-99(Fasting)) mg/dl Total Bilirubin 1.6 H (0.2-1.0) mg/dl Procalcitonin 0.60 H (0-0.5) ng/ml Urine Protein 1+ H (Negative) Urine Ketones Trace H (Negative) Ur Leukocyte Esterase Trace H (Negative) Urine RBC (Auto) 3-5 H (0-2) /hpf Diagnostic Findings Chest X-Ray 04/01/24 09:50 XR chest 1V portable CLINICAL HISTORY: fever TECHNIQUE: Single frontal radiograph of the chest was obtained. Comparison: Comparison is made to chest radiograph 05/25/2023 FINDINGS: No lines and tubes are seen. Cardiomegaly is noted. The lungs are clear. No evidence of pleural effusion or pneumothorax. IMPRESSION: No acute abnormalities and in particular no radiographic evidence of pneumonia. ACT 112: Negative or not required by law. Electronically signed by: Jesu Issa M.D. 04/01/2024 10:16 AM Code Status & VTE Plan Code Status Full code PG Care Time/CCT Total # of Minutes Spent Total Time Spent with Patient: Total time spent is greater than 50% in coordination of care (as documented) at patient's floor/unit and/or counseling patient: Coding Level of Care Code 33942 INT INP/OBS CARE 3/75MIN Diagnoses Febrile illness R50.9 Hypotension I95.9 Wheezing R06.2 Essential hypertension I10 Hypertension type: essential hypertension Thrombocytopenia D69.6 Atrial fibrillation, permanent I48.21 (4) Hypertension Hypertension type: essential hypertension Qualified Code(s): I10 - Essential (primary) hypertension
[2024-04-01 12:53] LABS: Appearance Urine Clear (Clear); Bacteria Urine Automated None Seen (None Seen); Bilirubin Urine Negative (Negative); Blood Urine Negative (Negative); Cast Urine Automated 0-2 /lpf (0-2); Color Urine Dark Yellow; Epithelial Cell Urine Auto 0-2 /hpf (0-2); Glucose Urine UA Negative (Negative); Ketones Urine Trace (Negative); Leukocyte Esterase Urine Trace (Negative); Nitrite Urine Negative (Negative); Protein Urine 1+ (Negative); Urobilinogen Urine Negative (Negative); WBC Urine Automated 0-5 /hpf (0-5); pH Urine 5.5 (4.5-7.5)
[2024-04-01] MEDS: SODIUM CHLORIDE 0.9% 1,000 ML IV ONE (14:00)
[2024-04-01] MEDS ORDERED: VANCOMYCIN CONSULT ACTIVE PRN (14:28)
[2024-04-01] MEDS: VANCOMYCIN HCL 2,000 MG in SODIUM CHLORIDE 0.9% 500 ML IV ONE (14:59)
[2024-04-01] MEDS: PIPERACILLIN/TAZOBACTAM 4.5 GM in DEXTROSE 5% MINI-B 100 ML IV ONE (15:05)
[2024-04-01] MEDS: PIPERACILLIN/TAZOBACTAM 4.5 GM in DEXTROSE 5% MINI-B 100 ML IV SCH (15:05)
[2024-04-01] MEDS: OPTIRAY 320 100ml IV ONE (15:13)
[2024-04-01] MEDS: ACETAMINOPHEN 325 MG TAB PO STA (15:29)
--- NOTE | 2024-04-01 16:04 | CT Scan Report ---
CT abd pelvis IV con only CLINICAL HISTORY: sepsis TECHNIQUE: Helical axial images of the abdomen and pelvis were obtained and displayed. Automated dose lowering techniques and/or adjustment according to patient size were utilized for this exam. This e xam was performed with intravenous contrast. CT DOSE: 1380.37 mGy.cm COMPARISON: Comparison is made to CT abdomen pelvis 06/13/2023 FINDINGS: Lower chest: Bibasilar atelectasis versus scarring is seen. Liver: Hepatic cysts are seen. Gallbladder and biliary tree: No calcified gallstones. Normal caliber wall. No intra- or extrahepatic biliary ductal dilation. Pancreas: Unremarkable, no focal lesions. Spleen: Splenomegaly is noted, the spleen measures 16 cm. Adrenals: Unremarkable. Kidneys and ureters: Left atelectasis is seen. Bladder: Trabeculated bladder wall compatible with chronic outlet obstruction. Reproductive organs: Prostatomegaly is seen. Bowel: Diverticulosis is seen without diverticulitis. The appendix is normal. Sigmoid colonic resecti on is seen. A small hiatal hernia is seen. Lymph nodes Retroperitoneal: Subcentimeter lymph nodes are noted. Pelvic: Unremarkable. Mesenteric: Unremarkable. Peritoneum: Normal. Vessels: Atherosclerotic calcifications are seen. Abdominal wall: Left lateral fat-containing inguinal hernia is seen. Bones: Degenerative changes in the visualized spine. IMPRESSION: 1. No acute abnormality to explain sepsis. 2. Diverticulosis without diverticulitis. 3. Trabeculated bladder compatible with chronic outlet obstruction. 4. Additional findings as above. ACT 112: Negative or not required by law. Electronically signed by: Jesu Issa M.D. 04/01/2024 4:02 PM
[2024-04-01] MEDS ORDERED: ONDANSETRON INJ 2 MG/ML 2 ML VIAL IV PRN (16:38)
[2024-04-01] MEDS ORDERED: ALBUTEROL 0.083% NEBU SOLN 3 ML VIAL NEB PRN (16:43)
[2024-04-01] MEDS: LACTATED RINGER'S 500 ML IV ONE (17:28)
[2024-04-01] MEDS: LACTATED RINGER'S 1,000 ML IV SCH (17:28)
[2024-04-01] MEDS ORDERED: ACETAMINOPHEN 325 MG TAB PO PRN (19:00)
[2024-04-01] MEDS: APIXABAN 5 MG TABLET PO SCH (20:24)
[2024-04-01] MEDS: ACETAMINOPHEN 325 MG TAB PO PRN (20:26)
[2024-04-02] MEDS: VANCOMYCIN HCL 1,000 MG in SODIUM CHLORIDE 0.9% 250 ML IV SCH (05:23)
--- NOTE | 2024-04-02 06:19 | Electrocardiogram Report ---
Test Reason : Blood Pressure : / mmHG Vent. Rate : 092 BPM Atrial Rate : 000 BPM P-R Int : 000 ms QRS Dur : 090 ms QT Int : 352 ms P-R-T Axes : 000 -42 005 degrees QTc Int : 435 ms Atrial fibrillation Left axis deviation Low voltage QRS Cannot rule out Anterior infarct , age undetermined Abnormal ECG When compared with ECG of 19-OCT-2023 09:57, (unconfirmed) Vent. rate has increased BY 40 BPM Confirmed by Mayank Jo ([id number]) on 04/02/2024 6:19:19 AM Referred By: REFERRED SELF Confirmed By:Mayank Jo
[2024-04-02] MEDS: ATORVASTATIN 40 MG TAB PO SCH (07:48)
[2024-04-02 08:05] LABS: Albumin Globulin Ratio 1.2 (0.9-2); Albumin Level 2.7 gm/dl (3.4-5.0); BUN Creatinine Ratio 18.6 (10-20); Bilirubin,Total 0.7 mg/dl (0.2-1.0); Calcium 7.7 mg/dl (8.6-10.3); Creatinine Clr Calc Pharmacy 96.7 ml/min; Est GFR (African American) 104.7 ml/min; Est GFR (Non-African American) 90.4 ml/min; Globulin 2.3 gm/dl (2.5-4.0); Magnesium 1.9 mg/dl (1.7-2.4); Phosphorus 2.1 mg/dl (2.5-4.9); Potassium 3.4 mmol/L (3.5-5.1)
[2024-04-02 08:07] LABS: Basophils # (auto) 0.01 K/uL (0.00-0.20); Basophils % (auto) 0.2 %; Eosinophils # (auto) 0.07 K/uL (0.00-0.50); Eosinophils % (auto) 1.1 %; Hematocrit (blood only) 35.3 % (42.0-52.0); Hemoglobin 12.8 g/dl (14.0-18.0); Immature Granulocytes # (auto) 0.04 K/uL (0.01-0.20); Immature Granulocytes % (auto) 0.6 %; Lymphocytes # (auto) 1.47 K/uL (1.20-3.40); Lymphocytes % (auto) 23.6 %; Mean Corpuscular Hemoglobin 32.3 pg (25.0-34.0); Mean Corpuscular Hgb Conc 36.3 g/dL (32.0-36.0); Mean Corpuscular Volume 89.1 fL (80.0-100.0); Mean Platelet Volume 10.5 fL (9.4-12.4); Monocytes # (auto) 0.78 K/uL (0.11-0.59); Monocytes % (auto) 12.5 %; Neutrophils # (auto) 3.86 K/uL (1.40-6.50); Platelet Count 112 K/uL (130-400); RDW Coefficient of Variation 12.1 % (11.5-14.5); RDW Standard Deviation 39.8 fL (36.4-46.3); Red Blood Count 3.96 M/uL (4.70-6.10); White Blood Count 6.23 K/ul (4.8-10.8)
--- NOTE | 2024-04-02 08:52 | Pharmacy Report ---
Pharmacy PK ABX Note - Date of Service April 02, 2024 - Assessment and Plan Assessment 68 year old M receiving vancomycin, ceftriaxone,doxycycline for empiric treatment- no current source identified. Pertinent microbiologic data includes: Negative Nasal MRSA swab, blood cultures pending. Procal 04/01 0.6. Infectious disease consulted. SCr 1.25 --> 0.86 today, appears baseline is ~1.0 Plan Vancomycin * Loading dose: 2000 mg IV x 1 * Maintenance dose: 1250 mg IV every 12 hours * Regimen is predicted to achieve target AUC/MICHAEL of 400-600 mg/L.hr * Level to be ordered if continued > 48 hours Pharmacy will continue to follow and will adjust dose/frequency as necessary. Thank you. Pharmacy has transitioned to AUC monitoring for vancomycin. AUC/MICHAEL is the preferred PK/PD target and is associated with decreased risk of nephrotoxicity compared to traditional trough targets.
[2024-04-02] MEDS: DOXYCYCLINE HYCLATE 100 MG CAP PO SCH (10:43)
[2024-04-02] MEDS: cefTRIAXone SODIUM 2,000 MG/50 ML BAG IV SCH (12:16)
--- NOTE | 2024-04-02 13:48 | Infectious Disease Consult ---
Date of Consultation April 02, 2024 Assessment & Plan (1) Hypotension: (2) Thrombocytopenia: (3) Subjective fever: Plan 68 yo male with a pmh of Atrial fib on eliquis, diverticulitis sp partial colectomy, htn, Bph presents for evaluation of fever and loss of appetite. His symptoms started about 1 week ago. He noted diarrhea, nausea and loss of appetite. Diarrhea resolved, but poor appetite continued associated with fever to a Tm of 102. He denies arthralgias, cough, abdominal pain, change in urination, rash, sick contacts, chest pain, mouth/throat pain. He had chills, sweats and headaches. Headaches and sweats resolved. He still has chills and fatigue. He denies travel in [place] or outside [place], animal exposure or recent activity in large bodies of eater. [place] but denies tick bites. In the ED he was afebrile, but noted to be hypotensive to 85/66 that improved after he received IVF. Lab with wbc 9.81, H/H 15.7/42.7, platelets 108., Bun 19/cr 1.25. Respiratory viral PCR is negative. Lyme screen negative. Procalcitonin 0.60. UA with 0-5 WBC.MRSA screen negative. CXR with no acute abnormalities or evidence of pneumonia, CTAP with no acute abnormalities. He has a trabeculated bladder compatible with chronic bladder obstruction. BC obtained with NGTD. Peripheral Blood smear obtained and no evidence of neutrophilic or RBC inclusions. Repeat Smear results pending. Babesia and Anaplasma PCR pending. He was started on Vancomycin/Ceftriaxone and Doxycycline. He has been afebrile since admission on 04/01/24. ID consulted for febrile illness. # Fevers at home # Mild thrombocytopenia #Fatigue, Malaise # Hypotension- resolved He has been afebrile since admission. He has a constellation of symptoms with thrombocytopenia on labs. He has no localizing signs or symptoms on exam on available imagin. Blood smears negative times 1. [place]. Agree with empiric coverage for tick related disease with doxycycline. He had one episode of diarrhea this AM. Recommendations Continue doxycycline 100 mg po q12h Continue Ceftriaxone 2g IV daily Can D/C vancomycin if BC without MRSA in 24 hours ( MRSA screen negative) Monitor platelets Follow up Blood cultures Follow up second blood smear, Anaplasma PCR and Babesia PCR Thank you for this consult. ID will continue to follow Shellie Armando MD, MPH Infectious Disease [facility], [facility] Call [phone] with questions. Consultation Information Consultation was provided via telemedicine using two-way real-time interactive telecommunication between the patient and the telemedicine provider. For the duration of the visit, the provider was performing the assessment from a different facility than the patient. This includesuse of bluetooth stethoscope forauscultationperformed by the telepresenter that the telemedicine provider can hear if described in the physical exam. Microbiology Quality Control Technician contact information: Please call [facility] Call Center . (Phone Number For Physician Use Only) After establishing a telemedicine visit, patient was: Patient was verified with two unique identifiers Time Spent with Patient: Initial => 75 min History of Present Illness Reason for Consultation: Febrile Illness Requesting Physician: Lillie Henning MD Attending Physician: Princess Alvarez MD History of Present Illness 68 yo male with a pmh of Atrial fib on eliquis, diverticulitis sp partial colectomy, htn, Bph presents for evaluation of fever and loss of appetite. His symptoms started about 1 week ago. He noted diarrhea, nausea and loss of appetite. Diarrhea resolved, but poor appetite continued associated with fever to a Tm of 102. He denies arthralgias, cough, abdominal pain, change in urination, rash, sick contacts, chest pain, mouth/throat pain. He had chills, sweats and headaches. Headaches and sweats resolved. He still has chills and fatigue. He denies travel in [place] or outside [place], animal exposure or recent activity in large bodies of eater. [place] but denies tick bites. In the ED he was afebrile, but noted to be hypotensive to 85/66 that improved after he received IVF. Lab with wbc 9.81, H/H 15.7/42.7, platelets 108., Bun 19/cr 1.25. Respiratory viral PCR is negative. Lyme screen negative. Procalcitonin 0.60. UA with 0-5 WBC.MRSA screen negative. CXR with no acute abnormalities or evidence of pneumonia, CTAP with no acute abnormalities. He has a trabeculated bladder compatible with chronic bladder obstruction. BC obtained with NGTD. Peripheral Blood smear obtained and no evidence of neutrophilic or RBC inclusions. Repeat Smear results pending. Babesia and Anaplasma PCR pending. He was started on Vancomycin/Ceftriaxone and Doxycycline. He has been afebrile since admission on 04/01/24. ID consulted for febrile illness. Allergies Allergy/AdvReac Type Severity Reaction Status Date / Time No Known Allergies Allergy Verified 03/22/24 12:15 Home Medications Medication Instructions Recorded Confirmed Type multivitamin (Daily Multi-Vitamin 1 tab PO QAM 01/25/20 04/01/24 History tablet) apixaban 5 mg tablet (Eliquis) 5 mg PO BID #180 tabs 04/20/23 04/01/24 Rx lisinopril 10 1 tab PO QAM #90 tabs 12/13/23 04/01/24 Rx mg-hydrochlorothiazide 12.5 mg tablet atorvastatin 40 mg tablet 40 mg PO QAM 12/14/23 04/01/24 History coenzyme Q10 30 mg capsule 30 mg PO QAM 12/14/23 04/01/24 History finasteride 5 mg tablet 5 mg PO QAM 12/14/23 04/01/24 History garlic 500 mg PO QAM 12/14/23 04/01/24 History tamsulosin 0.4 mg capsule 0.4 mg PO QAM #90 caps 02/08/24 04/01/24 Rx peg 3350-sod sulf,[id number] See Rx Instructions PO .COMPLEX #2 03/27/24 04/01/24 Rx 178.7-7.3-0.5-1.12-0.9 gram oral mL soln (Suflave) ondansetron HCl 4 mg tablet 4 mg PO Q8H PRN n/v 04/01/24 04/01/24 History Patient History Medical History Anticoagulant long-term use Dyslipidemia Hypertension Coronary artery calcification Atrial fibrillation cardioversion x 1, follows with Dr Orellana, on Eliquis Aortic atherosclerosis History of COVID-19 (~2021) home test, not hospitalized, resolved History of cardioversion (~03/17/23) @ [facility], unsuccessful, on Eliquis BPH (benign prostatic hyperplasia) History of urinary retention (~2022) required serrano catheter for 10 days Hx of diverticulitis of colon Surgical History H/O prostate biopsy x 3, benign Hx of vasectomy History of cystoscopy History of colostomy reversal History of tooth extraction History of tonsillectomy and adenoidectomy History of partial colectomy *with temporary colostomy>r/t diverticulitis History of arthroscopy of left knee History of foot surgery left History of colonoscopy Family History Mother Arthritis Father Coronary heart disease Dementia Unknown Benign polyp of large intestine Other Colonic polyp Hypertension Nephrolithiasis No family history of adverse response to anesthesia Prostate cancer Denies family history of Ovarian cancer Myocardial infarction Breast cancer Colorectal cancer Social History Smoking Status: Never smoker Second Hand Exposure: No; Do You Dip or Chew Tobacco: No; Tobacco Cessation Education Requested by Patient: No Hx Alcohol Use: Yes Alcohol type: beer Alcohol Intake Frequency: 2-3 x/Week Alcohol Intake Frequency Comment: weekends Hx Substance Use: No Preferred Language: Macedonian Communication Ability: Effective Visual Impairment: No Limitations Hearing Ability: Normal Pastry Baker Required: No Beliefs That Will Affect Care: None marital status: Current Living Situation: Spouse current occupational status: retired Other Information That Helps Us Care for You: No Feels Safe at Home: Yes Safety Concerns: Feels Safe At This Time Childhood Exposure to Second-Hand Smoke: No Diet: regular Diet Comment: regular caffeine: Yes during the past year weight has: remained stable Dental Care, Regularly: Yes Physical Activity Frequency: Daily Seatbelt Use: always Sunscreen Use: Yes Assistive Devices: None Review of System A 10 point ROS obtained. Pertinent positives as per HPI Physical Exam Physical Exam: Gen- NAD, flushed Neck - supple, without meningeal signs Skin- No rash, wounds, ulcers HEENT- Anicteric sclera, no oral lesions, fair dentition, partials Abdomen- soft, not tender, not distended - no CVA or suprapubic tenderness MSK- no spinal tenderness, moves all extremities, no joint effusions Neuro- AAO+3, non focal Psych- normal mood Results & Data Vital Signs (Past 12 Hours) Vital Signs Temp Pulse Pulse Resp BP Pulse Ox O2 Del Method 04/02/24 11:00 36.5 C 77 18 96/66 L 95 Room Air 04/02/24 08:24 61 04/02/24 08:00 36.6 C 70 18 98/59 L 93 Room Air 04/02/24 03:00 36.4 C L 69 17 95/61 L 96 Room Air 04/02/24 01:01 94/68 L Laboratory Results 04/01/24 09:59 Aerobic Blood Culture - Preliminary Blood No growth in Aerobic bottle after 24 hours. Anaerobic Blood Culture - Preliminary No growth in Anaerobic bottle after 24 hours. 04/01/24 09:59 Aerobic Blood Culture - Preliminary Blood No growth in Aerobic bottle after 24 hours. Anaerobic Blood Culture - Preliminary No growth in Anaerobic bottle after 24 hours. 04/02/24 04/01/24 07:05 15:00 WBC 6.23 RBC 3.96 L Hgb 12.8 L D Hct 35.3 L MCV 89.1 MCH 32.3 MCHC 36.3 H RDW Std Deviation 39.8 RDW Coeff of Silverio 12.1 Plt Count 112 L MPV 10.5 Immature Gran % (Auto) 0.6 Neut % (Auto) 62.0 Lymph % (Auto) 23.6 Crenshaw % (Auto) 12.5 Eos % (Auto) 1.1 Baso % (Auto) 0.2 Neut # (Auto) 3.86 Lymph # (Auto) 1.47 Crenshaw # (Auto) 0.78 H Eos # (Auto) 0.07 Baso # (Auto) 0.01 Immature Gran # (Auto) 0.04 Sodium 138 Potassium 3.4 L Chloride 105 Carbon Dioxide 27 Anion Gap 6 BUN 16 Creatinine 0.86 D Est Cr Clr Drug Dosing 96.7 Est GFR ( Amer) 104.7 Est GFR (Non-Af Amer) 90.4 BUN/Creatinine Ratio 18.6 Glucose 96 Calcium 7.7 L Phosphorus 2.1 L Magnesium 1.9 Total Bilirubin 0.7 D AST 27 ALT 26 Alkaline Phosphatase 52 Total Protein 5.0 L D Albumin 2.7 L Globulin 2.3 L Albumin/Globulin Ratio 1.2 Nasal Screen MRSA (PCR) Negative Diagnostic Findings Chest X-Ray 04/01/24 09:50 XR chest 1V portable CLINICAL HISTORY: fever TECHNIQUE: Single frontal radiograph of the chest was obtained. Comparison: Comparison is made to chest radiograph 05/25/2023 FINDINGS: No lines and tubes are seen. Cardiomegaly is noted. The lungs are clear. No evidence of pleural effusion or pneumothorax. IMPRESSION: No acute abnormalities and in particular no radiographic evidence of pneumonia. ACT 112: Negative or not required by law. Electronically signed by: Jesu Issa M.D. 04/01/2024 10:16 AM Abdomen/Pelvis CT 04/01/24 14:54 CT abd pelvis IV con only CLINICAL HISTORY: sepsis TECHNIQUE: Helical axial images of the abdomen and pelvis were obtained and displayed. Automated dose lowering techniques and/or adjustment according to patient size were utilized for this exam. This exam was performed with intravenous contrast. CT DOSE: 1380.37 mGy.cm COMPARISON: Comparison is made to CT abdomen pelvis 06/13/2023 FINDINGS: Lower chest: Bibasilar atelectasis versus scarring is seen. Liver: Hepatic cysts are seen. Gallbladder and biliary tree: No calcified gallstones. Normal caliber wall. No intra- or extrahepatic biliary ductal dilation. Pancreas: Unremarkable, no focal lesions. Spleen: Splenomegaly is noted, the spleen measures 16 cm. Adrenals: Unremarkable. Kidneys and ureters: Left atelectasis is seen. Bladder: Trabeculated bladder wall compatible with chronic outlet obstruction. Reproductive organs: Prostatomegaly is seen. Bowel: Diverticulosis is seen without diverticulitis. The appendix is normal. Sigmoid colonic resection is seen. A small hiatal hernia is seen. Lymph nodes Retroperitoneal: Subcentimeter lymph nodes are noted. Pelvic: Unremarkable. Mesenteric: Unremarkable. Peritoneum: Normal. Vessels: Atherosclerotic calcifications are seen. Abdominal wall: Left lateral fat-containing inguinal hernia is seen. Bones: Degenerative changes in the visualized spine. IMPRESSION: 1. No acute abnormality to explain sepsis. 2. Diverticulosis without diverticulitis. 3. Trabeculated bladder compatible with chronic outlet obstruction. 4. Additional findings as above. ACT 112: Negative or not required by law. Electronically signed by: Jesu Issa M.D. 04/01/2024 4:02 PM Medications Administered Home Medications Medication Instructions Recorded Confirmed Last Taken multivitamin (Daily Multi-Vitamin 1 tab PO QAM 01/25/20 04/01/24 05/25/23 tablet) apixaban 5 mg tablet (Eliquis) 5 mg PO BID #180 tabs 04/20/23 04/01/24 05/25/23 lisinopril 10 1 tab PO QAM #90 tabs 12/13/23 04/01/24 Unknown mg-hydrochlorothiazide 12.5 mg tablet atorvastatin 40 mg tablet 40 mg PO QAM 12/14/23 04/01/24 Unknown coenzyme Q10 30 mg capsule 30 mg PO QAM 12/14/23 04/01/24 Unknown finasteride 5 mg tablet 5 mg PO QAM 12/14/23 04/01/24 Unknown garlic 500 mg PO QAM 12/14/23 04/01/24 Unknown tamsulosin 0.4 mg capsule 0.4 mg PO QAM #90 caps 02/08/24 04/01/24 Unknown peg 3350-sod sulf,[id number] See Rx Instructions PO .COMPLEX #2 03/27/24 04/01/24 Unknown 178.7-7.3-0.5-1.12-0.9 gram oral mL soln (Suflave) ondansetron HCl 4 mg tablet 4 mg PO Q8H PRN n/v 04/01/24 04/01/24 Unknown Active Medications Generic Name Dose Route Start Last Admin Trade Name Freq PRN Reason Stop Dose Admin Acetaminophen 650 mg 04/01/24 15:10 04/01/24 20:26 Acetaminophen 325 Mg Tab PO 05/01/24 15:09 650 mg Q6 PRN Administration Pain Apixaban 5 mg 04/01/24 21:00 04/02/24 07:48 Apixaban 5 Mg Tablet PO 05/01/24 20:59 5 mg BID BALA Administration Atorvastatin Calcium 40 mg 04/02/24 09:00 04/02/24 07:48 Atorvastatin 40 Mg Tab PO 05/02/24 08:59 40 mg Q48H BALA Administration Doxycycline Hyclate 100 mg 04/02/24 09:00 04/02/24 10:43 Doxycycline Hyclate 100 Mg Cap PO 04/04/24 08:59 100 mg BID BALA Administration Lactated Ringer's 1,000 mls @ 125 mls/hr 04/01/24 16:38 04/02/24 15:02 Lr IV 04/04/24 15:14 125 mls/hr .Q8H BALA Administration Ceftriaxone Sodium 2,000 mg in 50 mls @ 100 mls/hr 04/02/24 12:00 04/02/24 12:46 Rocephin IV 04/04/24 11:59 Infused Q24H BALA Infusion
--- NOTE | 2024-04-02 14:57 | Hospitalist Progress Note ---
Date of Service April 02, 2024 Assessment & Plan (1) Febrile illness: (2) Hypotension: (3) Wheezing: (4) Hypertension: (5) Thrombocytopenia: (6) Atrial fibrillation, permanent: Plan 68 yo M with PMHx of AFib, HTN, HLD, BPH presents to the hospital for the evaluation of fever, loss of appetite, and diarrhea for about 1 week. Pt stated that about 1 week ago, he started with chills followed by diarrhea for about three days. #Febrile illness: Etiology is uncertain and differentials are broad. Patient denies any sick contact or travel outside of the [place] Denies headache or neck stiffness Continues to have rigors and chills, But no documented fever CT abd / pelvis w/ contrast - unremarkable for infectious source, splenomegaly noted Cont CTX / Doxy, add vanc Cultures have been negative,Tickborne illness panel negative Will request viral panel May need peripheral blood smear Infectious disease on board, appreciate commendations #Hypotension - Blood pressure still soft, continue to monitor - monitor on tele - UA unremarkable - CXR clear - BCx pending - tickborne illness panel pending (concerning in the setting of thrombocytopenia) #Wheezing - pt notes wheezing after CT scan. he denied contrast dye allergy - hold further fluids right now - prn albuterol #Thrombocytopenia - monitor closely #HTN - hold BP meds #HLD - cont statin #AFib - cont Eliquis #BPH - hold tamsulosin Admission and Anticipated Discharge Date Admission Date: April 01, 2024 Subjective Patient seen and examined, still having chills and rigors although no documented fever Review of Systems Review of Systems: All systems reviewed are negative, apart from the ones contained in the history. Physical Exam Physical Exam: The patient is awake, alert and oriented 3, well developed and well nourished, normocephalic and atraumatic, lying in bed and in no acute distress. HEENT--PERRL, EOMI, mucous membranes and oropharynx mildly dry Neck--supple. No JVD. No bruits. Thyroid normal, trachea midline, no adenopathy. Heart--normal S1 and S2. No murmurs, rubs or gallops. Lungs--clear bilaterally, no respiratory distress, no accessory muscle use. Abdomen--normal bowel sounds and soft. Extremities--no cyanosis or clubbing. No edema. Dermatologic--normal skin turgor, normal color, no abnormal lymph nodes, no rash. Neurologic--cranial nerves II through XII grossly intact. Rheumatologic--normal range of motion. Psychiatric--normal affect. Results & Data Results & Data Vital Signs (Past 12 Hours) Vital Signs Temp Pulse Pulse Resp BP Pulse Ox O2 Del Method 04/02/24 11:00 97.7 F 77 18 96/66 L 95 Room Air 04/02/24 08:24 61 04/02/24 08:00 97.9 F 70 18 98/59 L 93 Room Air 04/02/24 03:00 97.5 F L 69 17 95/61 L 96 Room Air PG Care Time/CCT Total # of Minutes Spent Total Time Spent with Patient: Total time spent is greater than 50% in coordination of care (as documented) at patient's floor/unit and/or counseling patient: Coding Level of Care Code 49623 SUB INP/OBS CARE 2/35MIN Diagnoses Febrile illness R50.9 Hypotension I95.9 Wheezing R06.2 Essential hypertension I10 Hypertension type: essential hypertension Thrombocytopenia D69.6 Atrial fibrillation, permanent I48.21 Time Spent (min) 35 (4) Hypertension Hypertension type: essential hypertension Qualified Code(s): I10 - Essential (primary) hypertension
[2024-04-02 16:41] LABS: Adenovirus F 40/41 PCR Not Detected (NotDetected); Astrovirus PCR Not Detected (NotDetected); Campylobacter PCR Not Detected (NotDetected); Cryptosporidium PCR Not Detected (NotDetected); Cyclospora cayetanensis PCR Not Detected (NotDetected); Entamoeba histolytica PCR Not Detected (NotDetected); Enteroaggregative E.coli(EAEC) Not Detected (NotDetected); Enteropathogenic E.coli (EPEC) Not Detected (NotDetected); Enterotoxigenic E.coli (ETEC) Not Detected (NotDetected); Giardia lamblia PCR Not Detected (NotDetected); Norovirus GI/GII PCR Not Detected (NotDetected); Plesiomonas shigelloides PCR Not Detected (NotDetected); Rotavirus A PCR Not Detected (NotDetected); Salmonella PCR Not Detected (NotDetected); Sapovirus PCR Not Detected (NotDetected); Shiga-like Toxin E.coli (STEC) Not Detected (NotDetected); Shigella/Enteroinvasive E.coli Not Detected (NotDetected); Vibrio cholerae PCR Not Detected (NotDetected); Vibrio species PCR Not Detected (NotDetected); Yersinia enterocolitica PCR Not Detected (NotDetected)
[2024-04-02] MEDS: VANCOMYCIN HCL 1,250 MG in SODIUM CHLORIDE 0.9% 250 ML IV SCH (17:09)
[2024-04-03 06:40] LABS: Hematocrit (blood only) 35.3 % (42.0-52.0); Hemoglobin 12.8 g/dl (14.0-18.0); Mean Corpuscular Hgb Conc 36.3 g/dL (32.0-36.0); Mean Corpuscular Volume 88.3 fL (80.0-100.0); Mean Platelet Volume 10.4 fL (9.4-12.4); Platelet Count 162 K/uL (130-400); RDW Coefficient of Variation 12.2 % (11.5-14.5); RDW Standard Deviation 39.9 fL (36.4-46.3); White Blood Count 6.59 K/ul (4.8-10.8)
[2024-04-03 07:05] LABS: Albumin Globulin Ratio 1.1 (0.9-2); Albumin Level 2.6 gm/dl (3.4-5.0); BUN Creatinine Ratio 21.3 (10-20); Basophils # (auto) 0.05 K/uL (0.00-0.20); Basophils % (auto) 0.8 %; Bilirubin,Total 0.5 mg/dl (0.2-1.0); Calcium 7.7 mg/dl (8.6-10.3); Creatinine Clr Calc Pharmacy 104.2 ml/min; Echinocytes 1+; Eosinophils # (auto) 0.13 K/uL (0.00-0.50); Est GFR (African American) 107.9 ml/min; Est GFR (Non-African American) 93.1 ml/min; Globulin 2.4 gm/dl (2.5-4.0); Immature Granulocytes # (auto) 0.02 K/uL (0.01-0.20); Immature Granulocytes % (auto) 0.3 %; Lymphocytes # (auto) 1.95 K/uL (1.20-3.40); Lymphocytes % (auto) 29.6 %; Magnesium 1.8 mg/dl (1.7-2.4); Monocytes # (auto) 0.69 K/uL (0.11-0.59); Monocytes % (auto) 10.5 %; Neutrophils # (auto) 3.75 K/uL (1.40-6.50); Neutrophils % (auto) 56.8 %; Potassium 3.6 mmol/L (3.5-5.1)
[2024-04-03] MEDS: ATORVASTATIN 20 MG TAB PO SCH (08:04)
--- NOTE | 2024-04-03 14:59 | Discharge Summary ---
Date of Service April 03, 2024 Admission HPI Per Admitting Provider 68 yo M with PMHx of AFib, HTN, HLD, BPH presents to the hospital for the evaluation of fever, loss of appetite, and diarrhea for about 1 week. Pt stated that about 1 week ago, he started with chills followed by diarrhea for about three days. The initial two days he had constant watery stool then it tapered off after he lost his appetite. He was also feeling quite nauseous prompting him to go to urgent care. He was sent home with rajani. He continued to have fevers as high as 102F. He has chills and night sweats. Over the past 3 to 4 days he has been having headaches. He denied any recent travel or sick contacts. He also has not eaten for about 1 week. He has maintained hydration with Pedialyte/ Gatorade / water. He also denied recent antibiotics. He does not recall any tick bites. Though is home [place], he has not ventured in there. Currently he feels severely fatigued. He denied chest pain, dyspnea, palpitations, abdominal pain. In the ED, he received 1L NS, CTX, Doxy. Shortly after he became hypotensive, requiring additional 1L NS. Principal Diagnosis Febrile illness Discharge Exam The patient is awake, alert and oriented 3, well developed and well nourished, normocephalic and atraumatic, lying in bed and in no acute distress. HEENT--PERRL, EOMI, mucous membranes and oropharynx mildly dry Neck--supple. No JVD. No bruits. Thyroid normal, trachea midline, no adenopathy. Heart--normal S1 and S2. No murmurs, rubs or gallops. Lungs--clear bilaterally, no respiratory distress, no accessory muscle use. Abdomen--normal bowel sounds and soft. Extremities--no cyanosis or clubbing. No edema. Dermatologic--normal skin turgor, normal color, no abnormal lymph nodes, no rash. Neurologic--cranial nerves II through XII grossly intact. Rheumatologic--normal range of motion. Psychiatric--normal affect. Discharge Data Allergies Allergy/AdvReac Type Severity Reaction Status Date / Time No Known Allergies Allergy Verified 03/22/24 12:15 Consultations 04/01/24 12:19 ED Decision to Admit Stat 04/01/24 14:52 Consult Infectious Diseases Stat Ordered Studies 04/01/24 14:54 CT Abd and Pelvis [CT abd pelvis IV con only] Stat Hospital Course (1) Febrile illness: (2) Hypotension: (3) Wheezing: (4) Hypertension: (5) Thrombocytopenia: (6) Atrial fibrillation, permanent: Plan 68 yo M with PMHx of AFib, HTN, HLD, BPH presents to the hospital for the evaluation of fever, loss of appetite, and diarrhea for about 1 week. Pt stated that about 1 week ago, he started with chills followed by diarrhea for about three days. #Febrile illness: Etiology is uncertain and differentials are broad. Patient denies any sick contact or travel outside of the [place] Denies headache or neck stiffness Continues to have rigors and chills, But no documented fever CT abd / pelvis w/ contrast - unremarkable for infectious source, splenomegaly noted Cont CTX / Doxy, add vanc Cultures have been negative,Tickborne illness panel negative Will request viral panel May need peripheral blood smear Infectious disease on board, appreciate commendations Patient expressed their willingness to be discharged, he was discharged today on p.o. doxycycline and cefdinir while we monitor for any pending labs. #Hypotension - Blood pressure still soft, continue to monitor - monitor on tele - UA unremarkable - CXR clear - BCx pending - tickborne illness panel pending (concerning in the setting of thrombocyto penia) #Wheezing - pt notes wheezing after CT scan. he denied contrast dye allergy - hold further fluids right now - prn albuterol #Thrombocytopenia - monitor closely #HTN - hold BP meds #HLD - cont statin #AFib - cont Eliquis #BPH - hold tamsulosin Total Time Total Time Spent Total Time Spent (In Minutes): 35 Discharge Plan Discharge Items Patient Disposition: Home - Self-Care Reason For Visit: FEBRILE ILLNESS Discharge Diagnosis: febrile illness Condition on Discharge: Good Activity: Resume your previous activity Non-emergency contact: Primary Care Provider Call non-emergency contact if: you have any medication questions Follow-up/Referrals: Harman Riley CRNP [Primary Care Provider] - Diet: Regular Addtl Attending Provider Instructions: Please make appointment to follow-up with her regular PCP Pending Studies at Discharge: Yes Studies:: Anaplasma, hepatitis B, herpes virus, EBV Stand-Alone Forms: [facility], Smoking Cessation Medications and DC Order Prescriptions: New doxycycline hyclate 100 mg Capsule 100 mg PO BID 7 Days Qty: 14 0RF cefdinir 300 mg capsule 300 mg PO BID 7 Days Qty: 14 0RF Continued Eliquis 5 mg tablet 5 mg PO BID Qty: 180 3RF lisinopril-hydrochlorothiazide 10-12.5 mg tablet 1 tab PO QAM Qty: 90 3RF tamsulosin 0.4 mg capsule 0.4 mg PO QAM Qty: 90 3RF Suflave 178.7-7.3-0.5 gram recon soln See Rx Instructions PO .COMPLEX Qty: 2 0RF Rx Instructions: orally; TAKE FIRST DOSE AT 6 PM AND SECOND DOSE 6 HOURS PRIOR TO PROCEDURE BIN: [id number] N: 2000 GROUP: [id number] multivitamin [Daily Multi-Vitamin] Tablet 1 tab PO QAM Rx Instructions: otc unable to verify with pharmacy coenzyme Q10 30 mg Capsule 30 mg PO QAM Rx Instructions: otc unable to verify with pharmacy garlic Tablet 500 mg PO QAM Rx Instructions: otc unable to verify with pharmacy atorvastatin 40 mg tablet 40 mg PO QAM Rx Instructions: alternating 40mg and 20 mg every other day orally; finasteride 5 mg tablet 5 mg PO QAM ondansetron HCl 4 mg tablet 4 mg PO Q8H PRN (Reason: n/v) Discharge Orders: Discharge Order (Routine); Ordered 04/03/24 Ordered By: Princess Alvarez Admission Data Admit Date/Time: 04/01/24 15:04 Attending Provider: Princess Alvarez Admit Provider: Lillie Henning Primary Care Provider: Harman Riley Other Providers: Lillie Henning; Poppy Loza; Danay Flores; Cachorro Horton Antonie J.; Jayashree Perez; Antoinette Sutherland Other Interventions: Discharge Summary Assessment (RN) Last Done: 04/03/24 11:56 Coding Level of Care Code 77565 INP/OBS DISCH >30 MIN Diagnoses Febrile illness R50.9 Hypotension I95.9 Wheezing R06.2 Essential hypertension I10 Hypertension type: essential hypertension Thrombocytopenia D69.6 Atrial fibrillation, permanent I48.21 Time Spent (min) 35
[2024-04-05 12:17] LABS: Babesia microti DNA Not Detected (Not Detected)
[2024-04-05 17:32] LABS: EBV Nuclear Ag Antibody >600.00 U/mL; EBV Virus Capsid Ag IgG Ab >750.00 U/mL; Herpes Virus 6 (DNA) Not Detected (Not Detected); Herpes Virus 6 (DNA) Source Whole Blood
== END 2024-04-03 13:29 | disposition home or self-care (01) | DRG 864 ==
LOC: ED 09:20 → SUATTDRO 15:04 → 2E 15:04

== ENCOUNTER 2024-10-12 04:01 | Inpatient (IN) ==
[2024-10-12] MEDS: SODIUM CHLORIDE 0.9% 500 ML IV ONE (04:23)
[2024-10-12] MEDS: fentaNYL citrate PF 100 MCG/2 ML VIAL IV STA (04:23)
[2024-10-12 04:33] LABS: Basophils # (auto) 0.03 K/uL (0.00-0.20); Basophils % (auto) 0.3 %; Hematocrit (blood only) 40.5 % (42.0-52.0); Hemoglobin 14.8 g/dl (14.0-18.0); Immature Granulocytes # (auto) 0.03 K/uL (0.01-0.20); Immature Granulocytes % (auto) 0.3 %; Lymphocytes # (auto) 1.23 K/uL (1.20-3.40); Lymphocytes % (auto) 11.9 %; Mean Corpuscular Hemoglobin 32.6 pg (25.0-34.0); Mean Corpuscular Hgb Conc 36.5 g/dL (32.0-36.0); Mean Corpuscular Volume 89.2 fL (80.0-100.0); Mean Platelet Volume 9.3 fL (9.4-12.4); Monocytes # (auto) 0.71 K/uL (0.11-0.59); Monocytes % (auto) 6.9 %; Neutrophils # (auto) 8.21 K/uL (1.40-6.50); Neutrophils % (auto) 79.6 %; Platelet Count 199 K/uL (130-400); RDW Coefficient of Variation 11.8 % (11.5-14.5); RDW Standard Deviation 37.5 fL (36.4-46.3); Red Blood Count 4.54 M/uL (4.70-6.10); White Blood Count 10.31 K/ul (4.8-10.8)
--- NOTE | 2024-10-12 04:33 | Emergency Department Note ---
Impression & Plan Gross hematuria, Status post recent transurethral resection of prostate, Acute kidney injury, Anticoagulant long-term use ED Provider Note NAME: LELIA DAWKINS AGE: 69 SEX: M : 1955 ARRIVES VIA: Ambulance INFORMANT: Patient, nursing report ED PROVIDER(S): Rasta Robledo MD CHIEF COMPLAINT: Penile pain MEDICAL DECISION MAKING: Patient presents for penile pain. Patient does not have any actual penis pain on exam and no testicular pain or swelling. Lower abdominal pain noted no recent TURP. Initial bladder scan showed the patient was having retention of greater than 300 cc. The patient is had poor stream of late along with dribbling urine. IV was established and blood work was obtained. Patient was ordered additional IV fentanyl as he had received some around along with IV Tylenol prior to arrival. He did have improvement of this but still had worsening pain. Was advised that the patient had a postvoid residual and that the patient did have persistent retention will consider Serrano catheter if urology thought it appropriate in light of his recent procedure. Blood work showed a normal white count hemoglobin of 14.8 with normal platelet count. Patient's kidney function creatinine 1.39. LFTs with a bilirubin 1.4. Patient did receive several rounds of pain medication IV. The patient did desat to 83% but was not extremis or having any respiratory symptoms. The patient was placed on supplemental nasal cannula and did not have acute issues. Patient had 400 cc of retention. I did speak with on-call urologist Dr. You who stated that the patient could have a catheter placed and recommended 822 or 24 possible. This was not able to be accomplished. The patient did have a Serrano catheter placed which did show howard colored urine. Under the advisement of Dr. You he stated that if it was this, nature he did recommend manual bladder irrigation until clots were no longer present and then recommended continuous bladder irrigation and admission. I did speak the on-call hospitalist service Dr. Raya after informing the patient of the findings and the patient was admitted to the medicine service CT pending the time of admission. CT shows urinary bladder diverticulum which may show evidence of hematoma. Discussion w/ other healthcare providers: Dr. You urology Dr. Raya inpatient medicine service Prior /Outside records reviewed: I did review a recent operative report from October [address] Chau patient did have a prior diagnosis of urinary retention BPH status post transurethral resection of prostate. Differential diagnosis: Appendicitis, testicular torsion, UTI, diverticulitis, obstruction, renal colic, mesenteric adenitis, enteririts, PUD, pancreatitis, biliary pathology, hernia, volvulus, constipation, as well as other pathologies were considered. Diagnostics, as interpreted by me: ECG: None Cardiac monitoring: An order was placed for continuous cardiac monitoring. The monitor shows a rate of 85 with irregularly irregular rhythm. Patient was placed on pulse oximetry Medical decision rules: None Imaging studies: I informally interpreted the patient's CT abdomen pelvis does show hematoma within the bladder with formal report to follow. HPI: Patient presents due to concerns for penile pain. Patient reports that the penile pain began in the afternoon yesterday. Patient reports that he did have a chart completed by Dr. Chau on October 02 and was not having any significant issues. The patient states that prior to having the pain yesterday he was having some blood in the urine and some associated clots but he was passing them without issue. Patient states that he has been having good bowel movements and no constipation. Patient Nuys any chest pain or shortness of breath no fevers or chills. The patient reports he has had associated dysuria. No falls or trauma. No testicular pain or swelling. Patient does take Eliquis for known history of A-fib. PAST MEDICAL HISTORY: See Below PAST SURGICAL HISTORY: See Below SOCIAL HISTORY: See Below HOME MEDICATIONS: See Below ALLERGIES: See Below VITALS: See Below PHYSICAL EXAMINATION: GENERAL: NAD, non-toxic. EYE EXAM: Normal conjunctiva. PERRL, no anisocoria and EOM's grossly intact w/o pain. OROPHARYNX: Moist mucus membranes, grossly normal dentition. NECK: Trachea midline, no stridor. Supple, no nuchal rigidity, no adenopathy, non-tender. No signs of meningismus. FROM of the neck with good chin to chest and neck extension. LUNGS: Clear to auscultation. Normal chest wall mechanics. HEART: Irregularly irregular, no MRG. ABDOMEN: Abdomen soft, lower abdominal pain with no specific focality, no masses, no rebound or guarding. BACK: No CVA TTP. : Circumcised, bilateral testes descended with no reproducible pain to the penis or scrotum. No obvious swelling. SKIN: No rashes and no bruising. UPPER EXTREMITIES: Upper extremities are grossly normal. LOWER EXTREMITIES: Grossly normal, no edema. NEURO EXAM: A&O x3, cranial nerves II-XII grossly intact, normal speech, moves all 4 extremities. 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 Jo, on Eliquis Snoring BPH w urinary obs/LUTS (Acute) Dyslipidemia (Acute) Nephrolithiasis (Acute) Dysplastic nevus (Chronic) Elevated PSA (Chronic) Hypertension (Chronic) Aortic atherosclerosis (Chronic) Coronary artery calcification (Chronic) Medical History History of colon polyps Indeterminate pulmonary nodules f/u PCP after xray."all cleared" Anticoagulant long-term use Dyslipidemia Hypertension Coronary artery calcification Atrial fibrillation dx approx 2021, hx cardioversion x 1, follows with Dr Orellana, on Eliquis Aortic atherosclerosis History of COVID-19 (~2021) home test, not hospitalized, resolved BPH (benign prostatic hyperplasia) History of urinary retention (~2022) required serrano catheter for 10 days Hx of diverticulitis of colon Surgical History History of cardioversion (~03/17/23) @ [facility], unsuccessful, on Eliquis Hx of bilateral cataract extraction H/O prostate biopsy x 3, benign Hx of vasectomy History of cystoscopy History of colostomy reversal History of tooth extraction History of tonsillectomy and adenoidectomy History of partial colectomy *with temporary colostomy>r/t diverticulitis History of arthroscopy of left knee History of foot surgery left History of colonoscopy Family History Mother Arthritis Father Coronary heart disease Dementia Unknown Benign polyp of large intestine Other Colonic polyp Hypertension Nephrolithiasis No family history of adverse response to anesthesia Prostate cancer Denies family history of Ovarian cancer Myocardial infarction Breast cancer Colorectal cancer Social History Smoking Status: Never smoker Second Hand Exposure: No; Hx Alcohol Use: Yes Alcohol type: beer Alcohol Intake Frequency: 2-3 x/Week Alcohol Intake Frequency Comment: weekends Hx Substance Use: No Preferred Language: Ecuadorean Visual Impairment: No Limitations Hearing Ability: Normal Sales Representative Groceries Required: No Beliefs That Will Affect Care: None marital status: Current Living Situation: Spouse current occupational status: retired Feels Safe at Home: Yes Childhood Exposure to Second-Hand Smoke: No Diet: regular Diet Comment: regular caffeine: Yes during the past year weight has: remained stable Dental Care, Regularly: Yes Physical Activity Frequency: Daily Seatbelt Use: always Sunscreen Use: Yes Assistive Devices: Other Allergies Allergies Allergy/AdvReac Type Severity Reaction Status Date / Time No Known Allergies Allergy Verified 10/02/24 06:11 Home Meds Home Medications Medication Instructions Recorded Confirmed multivitamin (Daily Multi-Vitamin 1 tab PO QAM 01/25/20 10/12/24 tablet) coenzyme Q10 30 mg capsule 30 mg PO QAM 12/14/23 10/12/24 finasteride 5 mg tablet 5 mg PO QAM 12/14/23 10/12/24 garlic 500 mg PO QAM 12/14/23 10/12/24 apixaban 5 mg tablet (Eliquis) 5 mg PO BID 07/24/24 10/12/24 atorvastatin 40 mg tablet 20 - 40 mg PO QAM 09/14/24 10/12/24 Previous Rx's Medication Instructions Recorded lisinopril 10 1 tab PO QAM #90 tabs 12/13/23 mg-hydrochlorothiazide 12.5 mg tablet tamsulosin 0.4 mg capsule 0.4 mg PO QAM #90 caps 02/08/24 oxybutynin chloride 5 mg 5 mg PO DAILY #7 tabs 10/02/24 tablet,extended release 24 hr oxycodone 5 mg tablet 5 mg PO Q6H PRN pain #7 tabs 10/02/24 Results & Data (ED) Vital Signs Vital Signs - 24 hr 10/14/24 12:18 10/14/24 12:19 10/14/24 14:38 Temperature 37.0 C Temperature Source Oral Pulse Rate 54 L Pulse Rate [Right Finger] 50 L Respiratory Rate 16 Blood Pressure [Left Arm] 101/67 Blood Pressure Mean [Left Arm] 78 Blood Pressure Position [Left Arm] Lying Pulse Oximetry 96 Oxygen Delivery Method Room Air EWS Level of Consciousness - Last Result Spontaneously Alert EWS Temperature - Last Result 37.0 EWS Respiratory Rate - Last Result 16 EWS Oxygen Saturation - Last Result 96 EWS Oxygen in Use - Last Result No EWS Score 2 EWS Clinical Risk Low Risk Home Medications Current Medication List: was personally reviewed by me Laboratory Data Attestation: I reviewed the patient's lab results. 10/13/24 05:48 10/13/24 05:48 Lab Results 10/12/24 10/12/24 10/12/24 Range/Units 04:15 04:23 12:25 WBC 10.31 8.21 (4.8-10.8) K/ul RBC 4.54 L 4.10 L (4.70-6.10) M/uL Hgb 14.8 13.3 L (14.0-18.0) g/dl POC Hgb 13.9 L (14.0-18.0) g/dl Hct 40.5 L 37.4 L (42.0-52.0) % POC Hct 41 L (42-52) % MCV 89.2 91.2 (80.0-100.0) fL MCH 32.6 32.4 (25.0-34.0) pg MCHC 36.5 H 35.6 (32.0-36.0) g/dL RDW Std Deviation 37.5 40.0 (36.4-46.3) fL RDW Coeff of Silverio 11.8 12.2 (11.5-14.5) % Plt Count 199 169 (130-400) K/uL MPV 9.3 L 9.4 (9.4-12.4) fL Immature Gran % (Auto) 0.3 0.5 % Neut % (Auto) 79.6 67.8 % Lymph % (Auto) 11.9 18.6 % [place] % (Auto) 6.9 10.5 % Eos % (Auto) 1.0 2.2 % Baso % (Auto) 0.3 0.4 % Neut # (Auto) 8.21 H 5.57 (1.40-6.50) K/uL Lymph # (Auto) 1.23 1.53 (1.20-3.40) K/uL [place] # (Auto) 0.71 H 0.86 H (0.11-0.59) K/uL Eos # (Auto) 0.10 0.18 (0.00-0.50) K/uL Baso # (Auto) 0.03 0.03 (0.00-0.20) K/uL Immature Gran # (Auto) 0.03 0.04 (0.01-0.20) K/uL POC Sodium 138 (135-144) mmol/L Sodium 137 140 (136-145) mmol/L POC Potassium 3.8 (3.3-5.0) mmol/L Potassium 3.9 4.9 D (3.5-5.1) mmol/L POC Chloride 102 (101-112) mmol/L Chloride 103 108 H (98-107) mmol/L Carbon Dioxide 26 28 (21-32) mmol/L POC Total CO2 23 L (24-31) mmol/L Anion Gap 8 4 (3-11) POC Anion Gap 18.0 (16-25) mmol/L POC BUN 19 H (7-18) mg/dl BUN 20 17 (6-23) mg/dl Creatinine 1.39 1.12 (0.6-1.4) mg/dl POC Creatinine 1.6 H (0.6-1.3) mg/dl Est Cr Clr Drug Dosing 59.9 74.4 ml/min eGFR 55.56 72.00 BUN/Creatinine Ratio 14.4 15.2 (10-20) Glucose 114 H 96 (70-99(Fasting)) mg/dl POC Glucose (70-99) mg/dl POC Glucose (other) 111 H (70-99) mg/dl Calcium 9.2 8.7 (8.6-10.3) mg/dl POC Ioniz Calcium Kenneth 1.10 L (1.12-1.32) mmol/l Magnesium 2.0 (1.7-2.4) mg/dl Total Bilirubin 1.4 H (0.2-1.0) mg/dl AST 13 (13-39) U/L ALT 13 (7-52) U/L Alkaline Phosphatase 81 (34-104) U/L Total Protein 6.2 (6.0-8.3) gm/dl Albumin 3.8 (3.4-5.0) gm/dl Globulin 2.4 L (2.5-4.0) gm/dl Albumin/Globulin Ratio 1.6 (0.9-2) Lipase 24 (11-82) U/L 10/13/24 10/14/24 Range/Units 05:48 07:53 WBC 9.08 (4.8-10.8) K/ul RBC 4.04 L (4.70-6.10) M/uL Hgb 13.1 L (14.0-18.0) g/dl POC Hgb (14.0-18.0) g/dl Hct 37.1 L (42.0-52.0) % POC Hct (42-52) % MCV 91.8 (80.0-100.0) fL MCH 32.4 (25.0-34.0) pg MCHC 35.3 (32.0-36.0) g/dL RDW Std Deviation 40.4 (36.4-46.3) fL RDW Coeff of Silverio 12.1 (11.5-14.5) % Plt Count 167 (130-400) K/uL MPV 9.2 L (9.4-12.4) fL Immature Gran % (Auto) 0.3 % Neut % (Auto) 66.9 % Lymph % (Auto) 18.1 % [place] % (Auto) 11.3 % Eos % (Auto) 3.0 % Baso % (Auto) 0.4 % Neut # (Auto) 6.07 (1.40-6.50) K/uL Lymph # (Auto) 1.64 (1.20-3.40) K/uL [place] # (Auto) 1.03 H (0.11-0.59) K/uL Eos # (Auto) 0.27 (0.00-0.50) K/uL Baso # (Auto) 0.04 (0.00-0.20) K/uL Immature Gran # (Auto) 0.03 (0.01-0.20) K/uL POC Sodium (135-144) mmol/L Sodium 138 (136-145) mmol/L POC Potassium (3.3-5.0) mmol/L Potassium 4.7 (3.5-5.1) mmol/L POC Chloride (101-112) mmol/L Chloride 106 (98-107) mmol/L Carbon Dioxide 27 (21-32) mmol/L POC Total CO2 (24-31) mmol/L Anion Gap 5 (3-11) POC Anion Gap (16-25) mmol/L POC BUN (7-18) mg/dl BUN 16 (6-23) mg/dl Creatinine 1.05 (0.6-1.4) mg/dl POC Creatinine (0.6-1.3) mg/dl Est Cr Clr Drug Dosing 80.4 ml/min eGFR 77.80 BUN/Creatinine Ratio 15.2 (10-20) Glucose 96 (70-99(Fasting)) mg/dl POC Glucose 96 (70-99) mg/dl POC Glucose (other) (70-99) mg/dl Calcium 8.8 (8.6-10.3) mg/dl POC Ioniz Calcium Kenneth (1.12-1.32) mmol/l Magnesium (1.7-2.4) mg/dl Total Bilirubin (0.2-1.0) mg/dl AST (13-39) U/L ALT (7-52) U/L Alkaline Phosphatase (34-104) U/L Total Protein (6.0-8.3) gm/dl Albumin (3.4-5.0) gm/dl Globulin (2.5-4.0) gm/dl Albumin/Globulin Ratio (0.9-2) Lipase (11-82) U/L Administered Medications Finasteride (Finasteride 5 Mg Tab) 5 mg PO [facility] Stop: 11/11/24 09:45 Last Admin: 10/15/24 08:02 Dose: 5 mg Documented By: Admin: 10/14/24 08:16 Dose: 5 mg Documented By: MTMauri Admin: 10/13/24 07:59 Dose: 5 mg Documented By: MTMauri Admin: 10/12/24 11:15 Dose: 5 mg Documented By: MSG Ceftriaxone Sodium (Rocephin) 2,000 mg in 50 mls @ 100 mls/hr IV Q24H BALA Stop: 10/18/24 06:59 Last Infusion: 10/15/24 07:19 Dose: Infused Documented By: Admin: 10/15/24 06:22 Dose: 100 mls/hr Documented By: Infusion: 10/14/24 07:02 Dose: Infused Documented By: Admin: 10/14/24 06:11 Dose: 100 mls/hr Documented By: Infusion: 10/13/24 08:49 Dose: Infused Documented By: Admin: 10/13/24 07:59 Dose: 100 mls/hr Documented By: FRANK Oxybutynin Chloride (Oxybutynin Chloride Xl 5 Mg Tabcr) 5 mg PO DAILY BALA Stop: 11/11/24 09:59 Last Admin: 10/15/24 08:02 Dose: 5 mg Documented By: Admin: 10/14/24 08:17 Dose: 5 mg Documented By: Admin: 10/13/24 07:59 Dose: 5 mg Documented By: Admin: 10/12/24 10:30 Dose: 5 mg Documented By: Oxycodone HCl (Oxycodone Hcl Ir 5 Mg Tab (Immediate Release)) 5 mg PO Q4H PRN PRN Reason: Severe Pain (Scale 7, 8, 9,10) Stop: 10/26/24 13:23 Last Admin: 10/13/24 23:36 Dose: 5 mg Documented By: Admin: 10/13/24 16:57 Dose: 5 mg Documented By: Admin: 10/13/24 12:22 Dose: 5 mg Documented By: Admin: 10/12/24 22:58 Dose: 5 mg Documented By: Admin: 10/12/24 13:35 Dose: 5 mg Documented By: LEILA Senna/Docusate Sodium (Docusate Sodium/Senna 50/8.6mg Tab) 1 tab PO BID BALA Stop: 11/11/24 20:59 Last Admin: 10/15/24 08:01 Dose: 1 tab Documented By: Admin: 10/14/24 20:53 Dose: 1 tab Documented By: agricultural education instructor: 10/14/24 08:18 Dose: Not Given Documented By: Admin: 10/13/24 20:19 Dose: 1 tab Documented By: Admin: 10/13/24 08:01 Dose: 1 tab Documented By: Admin: 10/12/24 20:22 Dose: 1 tab Documented By: FARHAN Tamsulosin HCl (Tamsulosin Hcl 0.4 Mg Cap) 0.4 mg PO QAM BALA Stop: 11/11/24 09:45 Last Admin: 10/15/24 08:02 Dose: 0.4 mg Documented By: Admin: 10/14/24 08:17 Dose: 0.4 mg Documented By: Admin: 10/13/24 08:23 Dose: 0.4 mg Documented By: Admin: 10/12/24 10:30 Dose: 0.4 mg Documented By: Tramadol HCl (Tramadol Hcl 50 Mg Tablet) 50 mg PO Q4H PRN PRN Reason: Moderate Pain (Scale 4, 5, 6) Stop: 11/11/24 13:23 Last Admin: 10/15/24 02:53 Dose: 50 mg Documented By: agricultural education instructor: 10/14/24 20:52 Dose: 50 mg Documented By: agricultural education instructor: 10/14/24 14:48 Dose: 50 mg Documented By: Admin: 10/14/24 04:55 Dose: 50 mg Documented By: Admin: 10/12/24 16:07 Dose: 50 mg Documented By: FRANK Discontinued Medications Fentanyl Citrate (Fentanyl Citrate Pf 100 Mcg/2 Ml Vial) 100 mcg IV NOW STA Stop: 10/12/24 04:15 Last Admin: 10/12/24 04:23 Dose: 100 mcg Documented By: KIMBERLEY Sodium Chloride (Nss) 500 mls @ 999 mls/hr IV .Q31M ONE Stop: 10/12/24 04:45 Last Infusion: 10/12/24 07:20 Dose: Infused Documented By: Infusion: 10/12/24 04:30 Dose: 0 mls/hr Documented By: Admin: 10/12/24 04:23 Dose: 999 mls/hr Documented By: KIMBERLEY Sodium Chloride (Nss) 1,000 mls @ 999 mls/hr IV .Q1H1M BALA Stop: 10/12/24 07:37 Last Infusion: 10/12/24 08:10 Dose: Infused Documented By: Admin: 10/12/24 06:51 Dose: 999 mls/hr Documented By: STEVIE Ceftriaxone Sodium (Rocephin) 2,000 mg in 50 mls @ 100 mls/hr IV NOW STA Stop: 10/12/24 07:10 Last Infusion: 10/12/24 07:19 Dose: Infused Documented By: Admin: 10/12/24 06:50 Dose: 100 mls/hr Documented By: STEVIE Acetaminophen (Ofirmev) 1,000 mg in 100 mls @ 400 mls/hr IV Q8H PRN PRN Reason: Pain Stop: 10/15/24 09:45 Last Infusion: 10/14/24 01:45 Dose: Infused Documented By: Admin: 10/14/24 01:17 Dose: 400 mls/hr Documented By: Infusion: 10/12/24 10:11 Dose: Infused Documented By: Admin: 10/12/24 09:55 Dose: 400 mls/hr Documented By: Ioversol (Optiray 320 100ml) 100 ml IV ONCE ONE Stop: 10/12/24 04:59 Last Admin: 10/12/24 04:58 Dose: 93 ml Documented By: KASSY Lidocaine HCl (Lidocaine 2% Jelly 5 Ml Tube) Confirm Administered Dose 5 ml EXT .STK-MED ONE Stop: 10/12/24 05:14 Last Admin: 10/12/24 05:15 Dose: 5 ml Documented By: STEVIE Morphine Sulfate (Morphine Sulfate 4 Mg/Ml 1 Ml Carp\\Vial) 4 mg IV NOW STA Stop: 10/12/24 05:57 Last Admin: 10/12/24 07:14 Dose: 4 mg Documented By: Potassium Chloride (Potassium Chloride Crtab 20 Meq Tabcr) 40 meq PO NOW STA Stop: 10/12/24 06:38 Last Admin: 10/12/24 06:50 Dose: 40 meq Documented By: STEVIE Imaging Data Radiologist's Impression: Abdomen/Pelvis CT 10/12/24 04:14 EXAM: CT abd pelvis IV con only CLINICAL HISTORY: lower ab pain, dysuria, recent TURP TECHNIQUE: CT scan of the abdomen and pelvis was performed with IV contrast administration (93ml Optiray 320). Coronal and sagittal reconstructive images were also obtained. One of the following dose reduction techniques were utilized for this exam: Automated exposure control, adjustment of the mA and/or kV according to patient size, use of iterative reconstruction. CT scan performed according to ALARA principles. Automated exposure control used during the exam. COMPARISON: 04/01/2024 FINDINGS: Average-sized liver showing homogenous parenchymal attenuation with stable right hepatic lobe cyst. No dilated intra or extra-hepatic biliary tracts. Distended gall bladder showing no obvious radiodense calculi. Clear surrounding fat planes with no sizeable collections. Normal appearance of the pancreas with clear surrounding fat planes. The spleen, adrenal glands, and IVC are unremarkable. Aortoiliac atheromatous calcifications. Both kidneys are of average size and show a smooth outline and preserved parenchymal thickness. No renal calculi. No hydronephrosis. Extra-renal pelvis rather than left hydronephrosis down to its pelvic ureteric junction. Stranding of the right perinephric fat. The urinary bladder is distended showing no obvious masses with lamellar densities along its left posterolateral aspect. Urinary bladder diverticulum noted. Markedly enlarged prostate showing heterogenous attenuation and calcifications. Few pelvic phleboli. No free intraperitoneal air. No pelvi-abdominal encysted collections. No obvious pathologically enlarged lymph nodes. The appendix is unremarkable. No obvious right iliac inflammatory changes. Mild colonic diverticulosis. [place]-colic sutures noted. The ascending colon, the transverse colon, the descending colon, visualized small bowel loops are unremarkable. The stomach appears unremarkable. Scanned osseous structures show no osseous destruction. Thoracolumbar spondylosis. Scanned lung bases show bilateral basal atelectatic plates. IMPRESSION: 1. Urinary bladder diverticulum with newly developed lamellar densities along its left posterolateral aspect that could represent hematoma, excreted contrast and calculi. Advise sonography correlation. 2. Markedly enlarged prostate showing heterogenous attenuation and calcifications. 3. Stable rest of the study. Electronically signed by Vidhya Alcaraz 10-12-2024 06:56 AM Bladder Ultrasound 10/14/24 09:30 EXAM: US Bladder INDICATION: Hematuria 12 days following TURP. TECHNIQUE: Real-time ultrasound of the bladder with image documentation. COMPARISON: No relevant prior studies available. FINDINGS: Partially collapsed bladder with a balloon inflated in the lumen. There is adjacent debris probably blood clots. No pericystic fluid. IMPRESSION: Partially collapsed urinary bladder containing a catheter and multiple blood clots. ACT 112: Negative or not required by law. Electronically signed by Kimberley Iqbal 10-14-2024 11:00 AM Discharge Plan Visit Data Chief Complaint: Penis Pain Stated Complaint: PENIS PAIN ED Provider: Rasta Robledo Discharge Problem: Gross hematuria, Status post recent transurethral resection of prostate, Acute kidney injury, Anticoagulant long-term use Patient Disposition: Admitted As Inpatient Discharge Instructions Interventions: ED Discharge Assessment Last Done: 10/12/24 11:46
[2024-10-12 04:35] LABS: iSTAT Creatinine 1.6 mg/dl (0.6-1.3); iSTAT Hemoglobin 13.9 g/dl (14.0-18.0); iSTAT Ionized Calcium 1.1 mmol/l (1.12-1.32); iSTAT Potassium 3.8 mmol/L (3.3-5.0)
[2024-10-12 04:57] LABS: Albumin Globulin Ratio 1.6 (0.9-2); Albumin Level 3.8 gm/dl (3.4-5.0); BUN Creatinine Ratio 14.4 (10-20); Bilirubin,Total 1.4 mg/dl (0.2-1.0); Calcium 9.2 mg/dl (8.6-10.3); Creatinine Clr Calc Pharmacy 59.9 ml/min; Globulin 2.4 gm/dl (2.5-4.0); Potassium 3.9 mmol/L (3.5-5.1); Total Protein 6.2 gm/dl (6.0-8.3)
[2024-10-12] MEDS: OPTIRAY 320 100ml IV ONE (04:58)
[2024-10-12] MEDS: LIDOCAINE 2% JELLY 5 ML TUBE EXT ONE (05:15)
--- NOTE | 2024-10-12 06:31 | History & Physical Report ---
Date of Service October 12, 2024 Assessment & Plan (1) Gross hematuria: (2) Acute kidney injury: (3) Anticoagulant long-term use: (4) Atrial fibrillation, permanent: (5) Status post recent transurethral resection of prostate: Plan The patient is a 69-year-old male with a past medical history including indeterminate pulmonary nodules, elevated bilirubin,, cytopenia, long-term anticoagulant use with Eliquis for atrial fibrillation, BPH with LUTS, dyslipidemia, hypertension, aortic atherosclerosis and CAD. He underwent a TURP on 10/02, he reports he had been doing well until about 10/06, when he was resumed his anticoagulation with Eliquis for his atrial fibrillation. He reports starting to have some blood-tinged urine at that point, and now over the past 24 to 36 hours he developed progressively worsening clots, and ultimately was unable to urinate. He did have a Serrano catheter placed for CBI in the ED, had improvement in urine flow, and now has bright red blood in Serrano bag with CBI running. He reports he did develop a temperature about 24 hours ago, but has no other generalized complaints. #Gross hematuria/bladder outlet obstruction secondary to blood clots/status post TURP on 10/02- Patient reports he had been doing well until he resumed his Eliquis on 10/06, we start developing blood in urine Then the past 24 to 36 hours, he gradually began to develop more clots, to the point where the past 12 hours he is having very difficult much difficulty with urinating. Due to worsening pressure in his pelvis, he presented to the ED for assessment. He required fentanyl 100 mcg IV and morphine sulfate 4 mg IV for pain management to have Serrano catheter placed, which did develop some subsequent hypoxia NPO Serrano catheter is presently draining gross bloody urineBut the patient's pressure symptoms have significantly improved Patient reports he did start develop temperature about 24 hours ago Follow urine culture sensitivity Empiric ceftriaxone 2 g IV daily N.p.o. for possible procedure Urology aware and will see patient in the a.m. Continue CBI begun in the ED Continue tamsulosin and finasteride Acetaminophen 10 1 g IV every 8 hours as needed for mild pain or fever Avoid further narcotic medications due to precipitation of hypoxia Permanent atrial fibrillation/on Eliquis, which presently will be held If bleeding is unable to be controlled otherwise, will need to reverse Eliquis, but will hold at this time Hemoglobin is presently stable at 14.8 Reported history of thrombocytopenia, however platelets are 199 at this time We will ultimately need to coordinate with cardiology timing of resumption of Eliquis and minimization of potential bleeding Acute kidney injury- Creatinine 1.39, with base 1.05 Patient did receive normal saline 500 mL bolus from the ED Will give an additional 1 L bolus now, and give Klor-Con for 40 mEq p.o., and then repeat laboratories in about 5 hours for stability Maintenance fluids can be readjusted at that time For now, hold lisinopril and HCTZ Chronic medical issues: Hypertension-hold lisinopril/HCTZ Hyperlipidemia-Hold atorvastatin History of Present Illness Chief Complaint: The patient presents to the emergency department with about 24 to 36 hours of formation of clots, and decreased ability to urinate, with significant pelvic pressure, that was not relieved until Serrano catheter was placed and CBI was begun in the ED Primary Care Provider: LACHELLE Alvarez The patient is a 69-year-old male with a past medical history including indeterminate pulmonary nodules, elevated bilirubin,, cytopenia, long-term anticoagulant use with Eliquis for atrial fibrillation, BPH with LUTS, dyslipidemia, hypertension, aortic atherosclerosis and CAD. He underwent a TURP on 10/02, he reports he had been doing well until about 10/06, when he was resumed his anticoagulation with Eliquis for his atrial fibrillation. He reports starting to have some blood-tinged urine at that point, and now over the past 24 to 36 hours he developed progressively worsening clots, and ultimately was unable to urinate. He did have a Serrano catheter placed for CBI in the ED, had improvement in urine flow, and now has bright red blood in Serrano bag with CBI running. He reports he did develop a temperature about 24 hours ago, but has no other generalized complaints. Patient did have complication of developing some mild hypoxia after receiving pain medications to help deal with placement of Serrano catheter, with pulse ox 83% on room air, and presently is 100% on 2 L nasal cannula., With no significant chest discomfort or shortness of breath Allergies Allergy/AdvReac Type Severity Reaction Status Date / Time No Known Allergies Allergy Verified 10/02/24 06:11 Home Medications Medication Instructions Recorded Confirmed Type multivitamin (Daily Multi-Vitamin 1 tab PO QAM 01/25/20 10/12/24 History tablet) lisinopril 10 1 tab PO QAM #90 tabs 12/13/23 10/02/24 Rx mg-hydrochlorothiazide 12.5 mg tablet coenzyme Q10 30 mg capsule 30 mg PO QAM 12/14/23 10/12/24 History finasteride 5 mg tablet 5 mg PO QAM 12/14/23 10/02/24 History garlic 500 mg PO QAM 12/14/23 10/12/24 History tamsulosin 0.4 mg capsule 0.4 mg PO QAM #90 caps 02/08/24 10/02/24 Rx apixaban 5 mg tablet (Eliquis) 5 mg PO BID 07/24/24 10/12/24 History atorvastatin 40 mg tablet 20 - 40 mg PO QAM 09/14/24 10/12/24 History oxybutynin chloride 5 mg 5 mg PO DAILY #7 tabs 10/02/24 Rx tablet,extended release 24 hr oxycodone 5 mg tablet 5 mg PO Q6H PRN pain #7 tabs 10/02/24 Rx Past Med/Surg History Problem List (Updated 10/12/24 @ 06:33 by Mike Mast MD) Status post recent transurethral resection of prostate Gross hematuria Acute kidney injury Family history of colon cancer Indeterminate pulmonary nodules Retroperitoneal lymphadenopathy Wheezing Hypotension Febrile illness Elevated procalcitonin (Acute) Hyponatremia (Acute) Elevated bilirubin (Acute) Decrease in appetite (Acute) Nausea (Acute) Diarrhea (Acute) Night sweat (Acute) Thrombocytopenia (Acute) Headache (Acute) Subjective fever (Acute) Encounter for pre-operative examination Anticoagulant long-term use Atrial fibrillation, permanent cardioversion x 1, follows with Dr. Jo, on Eliquis Snoring BPH w urinary obs/LUTS (Acute) Dyslipidemia (Acute) Nephrolithiasis (Acute) Dysplastic nevus (Chronic) Elevated PSA (Chronic) Hypertension (Chronic) Aortic atherosclerosis (Chronic) Coronary artery calcification (Chronic) Medical History History of colon polyps Indeterminate pulmonary nodules f/u PCP after xray."all cleared" Anticoagulant long-term use Dyslipidemia Hypertension Coronary artery calcification Atrial fibrillation dx approx 2021, hx cardioversion x 1, follows with Dr Orellana, on Eliquis Aortic atherosclerosis History of COVID-19 (~2021) home test, not hospitalized, resolved BPH (benign prostatic hyperplasia) History of urinary retention (~2022) required serrano catheter for 10 days Hx of diverticulitis of colon Surgical History History of cardioversion (~03/17/23) @ [facility], unsuccessful, on Eliquis Hx of bilateral cataract extraction H/O prostate biopsy x 3, benign Hx of vasectomy History of cystoscopy History of colostomy reversal History of tooth extraction History of tonsillectomy and adenoidectomy History of partial colectomy *with temporary colostomy>r/t diverticulitis History of arthroscopy of left knee History of foot surgery left History of colonoscopy Family History Mother Arthritis Father Coronary heart disease Dementia Unknown Benign polyp of large intestine Other Colonic polyp Hypertension Nephrolithiasis No family history of adverse response to anesthesia Prostate cancer Denies family history of Ovarian cancer Myocardial infarction Breast cancer Colorectal cancer Social History Smoking Status: Never smoker Second Hand Exposure: No; Do You Dip or Chew Tobacco: No; Hx Alcohol Use: Yes Alcohol type: beer Alcohol Intake Frequency: 2-3 x/Week Alcohol Intake Frequency Comment: weekends Hx Substance Use: No Preferred Language: Korean Communication Ability: Effective Visual Impairment: No Limitations Hearing Ability: Normal Book Cleaner Required: No Beliefs That Will Affect Care: None marital status: Current Living Situation: Spouse current occupational status: retired Feels Safe at Home: Yes Childhood Exposure to Second-Hand Smoke: No Diet: regular Diet Comment: regular caffeine: Yes during the past year weight has: remained stable Dental Care, Regularly: Yes Physical Activity Frequency: Daily Seatbelt Use: always Sunscreen Use: Yes Assistive Devices: Other Review of Systems Review of Systems: The patient denies chest pain, palpitations, shortness of breath, dyspnea on exertion, cough, lower extremity swelling, sore throat, fevers, chills, sweats, weight change, fatigue, nausea, vomiting, diarrhea , constipation, blood in stool, lightheadedness, dizziness, headache, memory loss, loss of consciousness, imbalance, focal or generalized weakness, numbness or tingling in arms or legs, generalized arthralgias or myalgias, back or neck pain, or night sweats. The review of systems is otherwise negative other than for that already noted above, and at least 10 systems have been reviewed. Physical Exam Physical Exam: The patient is awake, alert and oriented 3, well developed and well nourished, normocephalic and atraumatic, lying in bed and in no acute distress. HEENT--PERRL, EOMI, mucous membranes and oropharynx mildly dry. Neck--supple. No JVD. No bruits. Thyroid normal, trachea midline, no adenopat hy. Heart--normal S1 and S2. No murmurs, rubs or gallops. Lungs--clear bilaterally, no respiratory distress, no accessory muscle use. Abdomen--normal bowel sounds and soft. Nontender. Nondistended. Mild suprapubic tenderness Extremities--no cyanosis or clubbing. No edema. There are good distal pulses b/l. Dermatologic--normal skin turgor, normal color, no abnormal lymph nodes, no rash. Neurologic--cranial nerves II through XII grossly intact. Rheumatologic--normal range of motion. Psychiatric--normal affect. Results & Data Results & Data Vital Signs (Past 12 Hours) Vital Signs Temp Pulse Resp BP Pulse Ox O2 Del Method O2 Flow Rate 10/12/24 04:30 83 L Room Air, Nasal Cannula 0 10/12/24 04:10 36.5 C 79 22 118/75 100 Room Air 10/12/24 04:08 81 Laboratory Results Laboratory Results WBC 10.31 K/ul (4.8-10.8) 10/12/24 04:15 RBC 4.54 M/uL (4.70-6.10) L 10/12/24 04:15 Hgb 14.8 g/dl (14.0-18.0) 10/12/24 04:15 POC Hgb 13.9 g/dl (14.0-18.0) L 10/12/24 04:23 Hct 40.5 % (42.0-52.0) L 10/12/24 04:15 POC Hct 41 % (42-52) L 10/12/24 04:23 MCV 89.2 fL (80.0-100.0) 10/12/24 04:15 MCH 32.6 pg (25.0-34.0) 10/12/24 04:15 MCHC 36.5 g/dL (32.0-36.0) H 10/12/24 04:15 RDW Std Deviation 37.5 fL (36.4-46.3) 10/12/24 04:15 RDW Coeff of Silverio 11.8 % (11.5-14.5) 10/12/24 04:15 Plt Count 199 K/uL (130-400) 10/12/24 04:15 MPV 9.3 fL (9.4-12.4) L 10/12/24 04:15 Immature Gran % (Auto) 0.3 % 10/12/24 04:15 Neut % (Auto) 79.6 % 10/12/24 04:15 Lymph % (Auto) 11.9 % 10/12/24 04:15 [place] % (Auto) 6.9 % 10/12/24 04:15 Eos % (Auto) 1.0 % 10/12/24 04:15 Baso % (Auto) 0.3 % 10/12/24 04:15 Neut # (Auto) 8.21 K/uL (1.40-6.50) H 10/12/24 04:15 Lymph # (Auto) 1.23 K/uL (1.20-3.40) 10/12/24 04:15 [place] # (Auto) 0.71 K/uL (0.11-0.59) H 10/12/24 04:15 Eos # (Auto) 0.10 K/uL (0.00-0.50) 10/12/24 04:15 Baso # (Auto) 0.03 K/uL (0.00-0.20) 10/12/24 04:15 Immature Gran # (Auto) 0.03 K/uL (0.01-0.20) 10/12/24 04:15 POC Sodium 138 mmol/L (135-144) 10/12/24 04:23 Sodium 137 mmol/L (136-145) 10/12/24 04:15 POC Potassium 3.8 mmol/L (3.3-5.0) 10/12/24 04:23 Potassium 3.9 mmol/L (3.5-5.1) 10/12/24 04:15 POC Chloride 102 mmol/L (101-112) 10/12/24 04:23 Chloride 103 mmol/L (98-107) 10/12/24 04:15 Carbon Dioxide 26 mmol/L (21-32) 10/12/24 04:15 POC Total CO2 23 mmol/L (24-31) L 10/12/24 04:23 Anion Gap 8 (3-11) 10/12/24 04:15 POC Anion Gap 18.0 mmol/L (16-25) 10/12/24 04:23 POC BUN 19 mg/dl (7-18) H 10/12/24 04:23 BUN 20 mg/dl (6-23) 10/12/24 04:15 Creatinine 1.39 mg/dl (0.6-1.4) 10/12/24 04:15 POC Creatinine 1.6 mg/dl (0.6-1.3) H 10/12/24 04:23 Est Cr Clr Drug Dosing 59.9 ml/min 10/12/24 04:15 eGFR 55.56 10/12/24 04:15 BUN/Creatinine Ratio 14.4 (10-20) 10/12/24 04:15 Glucose 114 mg/dl (70-99(Fasting)) H 10/12/24 04:15 POC Glucose (other) 111 mg/dl (70-99) H 10/12/24 04:23 Calcium 9.2 mg/dl (8.6-10.3) 10/12/24 04:15 POC Ioniz Calcium Kenneth 1.10 mmol/l (1.12-1.32) L 10/12/24 04:23 Total Bilirubin 1.4 mg/dl (0.2-1.0) H 10/12/24 04:15 AST 13 U/L (13-39) 10/12/24 04:15 ALT 13 U/L (7-52) 10/12/24 04:15 Alkaline Phosphatase 81 U/L (34-104) 10/12/24 04:15 Total Protein 6.2 gm/dl (6.0-8.3) 10/12/24 04:15 Albumin 3.8 gm/dl (3.4-5.0) 10/12/24 04:15 Globulin 2.4 gm/dl (2.5-4.0) L 10/12/24 04:15 Albumin/Globulin Ratio 1.6 (0.9-2) 10/12/24 04:15 Lipase 24 U/L (11-82) 10/12/24 04:15 Current 2 Code Status & VTE Plan Code Status Full code VTE Prophylaxis Plan VTE Prophylaxis will be ordered: Yes PG Care Time/CCT Total # of Minutes Spent Total Time Spent with Patient: Total time spent is greater than 50% in coordination of care (as documented) at patient's floor/unit and/or counseling patient: Coding Level of Care Code 23498 INT INP/OBS CARE 3/75MIN Diagnoses Gross hematuria R31.0 Acute kidney injury N17.9 Anticoagulant long-term use Z79.01 Atrial fibrillation, permanent I48.21 Status post recent transurethral resection of prostate Z98.890
[2024-10-12] MEDS: cefTRIAXone SODIUM 2,000 MG/50 ML BAG IV STA (06:50)
[2024-10-12] MEDS: POTASSIUM CHLORIDE CRTAB 20 MEQ TABCR PO STA (06:50)
[2024-10-12] MEDS: SODIUM CHLORIDE 0.9% 1,000 ML IV SCH (06:51)
--- NOTE | 2024-10-12 06:56 | CT Scan Report ---
EXAM: CT abd pelvis IV con only CLINICAL HISTORY: lower ab pain, dysuria, recent TURP TECHNIQUE: CT scan of the abdomen and pelvis was performed with IV contrast administration (93ml Optiray 320). Coronal and sagittal reconstructive images were also obtained. One of the following dose reduction techniques were utilized for this exam: Automated exposure control, adjustment of the mA and/or kV according to patient size, use of iterative reconstruction. CT scan performed according to ALARA principles. Automated exposure control used during the exam. COMPARISON: 04/01/2024 FINDINGS: Average-sized liver showing homogenous parenchymal attenuation with stable right hepatic lobe cyst. No dilated intra or extra-hepatic biliary tracts. Distended gall bladder showing no obvious radiodense calculi. Clear surrounding fat planes with no sizeable collections. Normal appearance of the pancreas with clear surrounding fat planes. The spleen, adrenal glands, and IVC are unremarkable. Aortoiliac atheromatous calcifications. Both kidneys are of average size and show a smooth outline and preserved parenchymal thickness. No renal calculi. No hydronephrosis. Extra-renal pelvis rather than left hydronephrosis down to its pelvic ureteric junction. Stranding of the right perinephric fat. The urinary bladder is distended showing no obvious masses with lamellar densities along its left posterolateral aspect. Urinary bladder diverticulum noted. Markedly enlarged prostate showing heterogenous attenuation and calcifications. Few pelvic phleboli. No free intraperitoneal air. No pelvi-abdominal encysted collections. No obvious pathologically enlarged lymph nodes. The appendix is unremarkable. No obvious right iliac inflammatory changes. Mild colonic diverticulosis. [place]-colic sutures noted. The ascending colon, the transverse colon, the descending colon, visualized small bowel loops are unremarkable. The stomach appears unremarkable. Scanned osseous structures show no osseous destruction. Thoracolumbar spondylosis. Scanned lung bases show bilateral basal atelectatic plates. IMPRESSION: 1. Urinary bladder diverticulum with newly developed lamellar densities along its left posterolateral aspect that could represent hematoma, excreted contrast and calculi. Advise sonography correlation. 2. Markedly enlarged prostate showing heterogenous attenuation and calcifications. 3. Stable rest of the study. Electronically signed by Vidhya Alcaraz 10-12-2024 06:56 AM
[2024-10-12] MEDS: MoRPHine SULFATE 4 MG/ML 1 ML CARP\\VIAL IV STA (07:14)
--- NOTE | 2024-10-12 08:46 | Urology Consultation ---
Date of Consultation October 12, 2024 Assessment & Plan (1) Gross hematuria: (2) BPH w urinary obs/LUTS: Plan 69-year-old male who status post TURP on 10/02/2024. He is on Eliquis and presented to the hospital with hematuria and clots. I irrigated his catheter with roughly 1 L of sterile water and got out 20 to 30 cc of clot. He was placed back on moderate drip CBI and urine was light pink. Maintain CBI and titrate down as possible. Nursing can hand irrigate the catheter if necessary Recommend prophylactic antibiotics while on CBI, Bactrim or Keflex is reasonable. Hold anticoagulation No acute urologic intervention necessary at this time. Patient can have a diet from urologic perspective. At this time Urology to follow History of Present Illness Attending Physician: Lillie Henning MD History of Present Illness 69-year-old male with a history of BPH and recurrent urinary retention who is status post TURP on 10/02/2024. Pathology was negative. Patient was discharged home with a Serrano catheter same day and passed a void trial on 10/05/2024. He unfortunately developed hematuria with clots several days ago which worsened overnight. He presented to hospital. Afebrile with stable vitals. Labs showed a hemoglobin of 14.8, creatinine of 1.39. Urinalysis was not performed. CT scan of the abdomen pelvis was obtained which showed no hydronephrosis and a TURP defect with a mild to moderate clot burden sitting at the bladder neck. When seen patient, urine was thin howard red on slow drip CBI. Patient has been taking his Eliquis and last dose was yesterday. Allergies Allergy/AdvReac Type Severity Reaction Status Date / Time No Known Allergies Allergy Verified 10/02/24 06:11 Home Medications Medication Instructions Recorded Confirmed Type multivitamin (Daily Multi-Vitamin 1 tab PO QAM 01/25/20 10/12/24 History tablet) lisinopril 10 1 tab PO QAM #90 tabs 12/13/23 10/12/24 Rx mg-hydrochlorothiazide 12.5 mg tablet coenzyme Q10 30 mg capsule 30 mg PO QAM 12/14/23 10/12/24 History finasteride 5 mg tablet 5 mg PO QAM 12/14/23 10/12/24 History garlic 500 mg PO QAM 12/14/23 10/12/24 History tamsulosin 0.4 mg capsule 0.4 mg PO QAM #90 caps 02/08/24 10/12/24 Rx apixaban 5 mg tablet (Eliquis) 5 mg PO BID 07/24/24 10/12/24 History atorvastatin 40 mg tablet 20 - 40 mg PO QAM 09/14/24 10/12/24 History oxybutynin chloride 5 mg 5 mg PO DAILY #7 tabs 10/02/24 10/12/24 Rx tablet,extended release 24 hr oxycodone 5 mg tablet 5 mg PO Q6H PRN pain #7 tabs 10/02/24 10/12/24 Rx Patient History Medical History History of colon polyps Indeterminate pulmonary nodules f/u PCP after xray."all cleared" Anticoagulant long-term use Dyslipidemia Hypertension Coronary artery calcification Atrial fibrillation dx approx 2021, hx cardioversion x 1, follows with Dr Orellana, on Eliquis Aortic atherosclerosis History of COVID-19 (~2021) home test, not hospitalized, resolved BPH (benign prostatic hyperplasia) History of urinary retention (~2022) required serrano catheter for 10 days Hx of diverticulitis of colon Surgical History History of cardioversion (~03/17/23) @ [facility], unsuccessful, on Eliquis Hx of bilateral cataract extraction H/O prostate biopsy x 3, benign Hx of vasectomy History of cystoscopy History of colostomy reversal History of tooth extraction History of tonsillectomy and adenoidectomy History of partial colectomy *with temporary colostomy>r/t diverticulitis History of arthroscopy of left knee History of foot surgery left History of colonoscopy Family History Mother Arthritis Father Coronary heart disease Dementia Unknown Benign polyp of large intestine Other Colonic polyp Hypertension Nephrolithiasis No family history of adverse response to anesthesia Prostate cancer Denies family history of Ovarian cancer Myocardial infarction Breast cancer Colorectal cancer Social History Smoking Status: Never smoker Second Hand Exposure: No; Do You Dip or Chew Tobacco: No; Hx Alcohol Use: Yes Alcohol type: beer Alcohol Intake Frequency: 2-3 x/Week Alcohol Intake Frequency Comment: weekends Hx Substance Use: No Preferred Language: [place] Communication Ability: Effective Visual Impairment: No Limitations Hearing Ability: Normal Appliance Service Technician Required: No Beliefs That Will Affect Care: None marital status: Current Living Situation: Spouse current occupational status: retired Feels Safe at Home: Yes Childhood Exposure to Second-Hand Smoke: No Diet: regular Diet Comment: regular caffeine: Yes during the past year weight has: remained stable Dental Care, Regularly: Yes Physical Activity Frequency: Daily Seatbelt Use: always Sunscreen Use: Yes Assistive Devices: Other Physical Exam Physical Exam: General: Alert and oriented, no acute distress HEENT: Normocephalic, mucous membranes moist Pulmonary: Nonlabored respirations Abdomen: Nondistended : 22 Greek three-way catheter draining thin howard red urine on slow drip CBI Extremities: Moves all 4 spontaneously Neuro: No gross deficits Skin: Warm, dry, no rashes noted Results & Data Vital Signs (Past 12 Hours) Vital Signs Temp Pulse Resp BP Pulse Ox O2 Del Method O2 Flow Rate 10/12/24 08:32 51 L 16 110/79 100 Room Air 10/12/24 08:13 52 L 10/12/24 07:00 66 16 117/79 100 Room Air 10/12/24 06:30 62 18 117/70 99 Room Air 10/12/24 06:00 97 Nasal Cannula 2 10/12/24 05:44 127/78 10/12/24 05:00 68 21 120/80 100 Room Air 10/12/24 04:30 80 17 114/89 90 Room Air 10/12/24 04:30 83 L Room Air, Nasal Cannula 0 10/12/24 04:10 36.5 C 79 22 118/75 100 Room Air 10/12/24 04:08 81 PG Care Time/CCT Total # of Minutes Spent Total Time Spent with Patient: Total time spent is greater than 50% in coordination of care (as documented) at patient's floor/unit and/or counseling patient: Coding Level of Care Code 31574 INT INP/OBS CARE 2/55MIN Diagnoses Gross hematuria R31.0 BPH w urinary obs/LUTS N40.1; N13.8
--- NOTE | 2024-10-12 09:39 | Hospitalist Progress Note ---
Date of Service October 12, 2024 Assessment & Plan (1) Gross hematuria: (2) Acute kidney injury: (3) Anticoagulant long-term use: (4) Atrial fibrillation, permanent: (5) Status post recent transurethral resection of prostate: Plan The patient is a 69-year-old male with a past medical history including indeterminate pulmonary nodules, elevated bilirubin,, cytopenia, long-term anticoagulant use with Eliquis for atrial fibrillation, BPH with LUTS, dyslipidemia, hypertension, aortic atherosclerosis and CAD. He underwent a TURP on 10/02, he reports he had been doing well until about 10/06, when he was resumed his anticoagulation with Eliquis for his atrial fibrillation. He reports starting to have some blood-tinged urine at that point, and now over the past 24 to 36 hours he developed progressively worsening clots, and ultimately was unable to urinate. He did have a Serrano catheter placed for CBI in the ED, had improvement in urine flow, and now has bright red blood in Serrano bag with CBI running. He reports he did develop a temperature about 24 hours ago, but has no other generalized complaints. #Gross hematuria/bladder outlet obstruction secondary to blood clots/status post TURP on 10/02- - was doing well until he resumed his Eliquis on 10/06, started developing blood in urine, which evolved into more clots, and then difficulty urinating - Due to worsening pressure in his pelvis, he presented to the ED for assessment. He required fentanyl 100 mcg IV and morphine sulfate 4 mg IV for pain management to have Serrano catheter placed, which led to subsequent hypoxia - diet resumed per urology recs - urology on board, s/p manual irrigation with clot removal - cont CBI - cont CTX at this time - cont tamsulosin and finasteride - pain control with tylenol / tramadol / oxycodone , senna S for OIC prevention - monitor for hypoxia given earlier episode with IV narcs #Permanent atrial fibrillation - Eliquis on hold - monitor Hgb, stable around 14.8 > 13.3 - Reported history of thrombocytopenia, however platelets are 199 at this time #Acute kidney injury- - Creatinine 1.39, with base 1.05 - s/p IVF - hold lisinopril / HCTZ #Hypertension-hold lisinopril/HCTZ #Hyperlipidemia-Hold atorvastatin #VTE: SCDs Subjective No acute events overnight Still have quite a bit of pain, but significantly improved since presentation Review of Systems Review of Systems: comprehensive ROS unremarkable Physical Exam Physical Exam: Gen: NAD HEENT: NC/AT, MMM Lungs: CTAB CVS: s1s2nl, RRR Abd: soft, NT, nl bowel sounds : 3-way serrano in place, CBI Ext: no edema Results & Data Results & Data Vital Signs (Past 12 Hours) Vital Signs Temp Pulse Resp BP Pulse Ox O2 Del Method O2 Flow Rate 10/12/24 08:59 58 L 12 125/66 99 Room Air 10/12/24 08:32 51 L 16 110/79 100 Room Air 10/12/24 08:13 52 L 10/12/24 07:00 66 16 117/79 100 Room Air 10/12/24 06:30 62 18 117/70 99 Room Air 10/12/24 06:00 97 Nasal Cannula 2 10/12/24 05:44 127/78 10/12/24 05:00 68 21 120/80 100 Room Air 10/12/24 04:30 80 17 114/89 90 Room Air 10/12/24 04:30 83 L Room Air, Nasal Cannula 0 10/12/24 04:10 36.5 C 79 22 118/75 100 Room Air 10/12/24 04:08 81 PG Care Time/CCT Total # of Minutes Spent Total Time Spent with Patient: Total time spent is greater than 50% in coordination of care (as documented) at patient's floor/unit and/or counseling patient: Coding Level of Care Code 27727 SUB INP/OBS CARE 3/50MIN Diagnoses Gross hematuria R31.0 Acute kidney injury N17.9 Anticoagulant long-term use Z79.01 Atrial fibrillation, permanent I48.21 Status post recent transurethral resection of prostate Z98.890
[2024-10-12] MEDS: ACETAMINOPHEN 1,000 MG/100 ML VIAL IV PRN (09:55)
[2024-10-12] MEDS: TAMSULOSIN HCL 0.4 MG CAP PO SCH (10:30)
[2024-10-12] MEDS: OXYBUTYNIN CHLORIDE XL 5 MG TABCR PO SCH (10:30)
[2024-10-12] MEDS: FINASTERIDE 5 MG TAB PO SCH (11:15)
[2024-10-12 13:01] LABS: Basophils # (auto) 0.03 K/uL (0.00-0.20); Basophils % (auto) 0.4 %; Eosinophils # (auto) 0.18 K/uL (0.00-0.50); Eosinophils % (auto) 2.2 %; Hematocrit (blood only) 37.4 % (42.0-52.0); Hemoglobin 13.3 g/dl (14.0-18.0); Immature Granulocytes # (auto) 0.04 K/uL (0.01-0.20); Immature Granulocytes % (auto) 0.5 %; Lymphocytes # (auto) 1.53 K/uL (1.20-3.40); Lymphocytes % (auto) 18.6 %; Mean Corpuscular Hemoglobin 32.4 pg (25.0-34.0); Mean Corpuscular Hgb Conc 35.6 g/dL (32.0-36.0); Mean Corpuscular Volume 91.2 fL (80.0-100.0); Mean Platelet Volume 9.4 fL (9.4-12.4); Monocytes # (auto) 0.86 K/uL (0.11-0.59); Monocytes % (auto) 10.5 %; Neutrophils # (auto) 5.57 K/uL (1.40-6.50); Neutrophils % (auto) 67.8 %; Platelet Count 169 K/uL (130-400); RDW Coefficient of Variation 12.2 % (11.5-14.5); White Blood Count 8.21 K/ul (4.8-10.8)
[2024-10-12 13:09] LABS: BUN Creatinine Ratio 15.2 (10-20); Calcium 8.7 mg/dl (8.6-10.3); Creatinine Clr Calc Pharmacy 74.4 ml/min; Potassium 4.9 mmol/L (3.5-5.1)
[2024-10-12] MEDS: oxyCODONE HCL IR 5 MG TAB (IMMEDIATE RELEASE) PO PRN (13:35)
[2024-10-12] MEDS: traMADol HCL 50 MG TABLET PO PRN (16:07)
[2024-10-12] MEDS: DOCUSATE SODIUM/SENNA 50/8.6MG TAB PO SCH (20:22)
[2024-10-13 06:19] LABS: Basophils # (auto) 0.04 K/uL (0.00-0.20); Basophils % (auto) 0.4 %; Eosinophils # (auto) 0.27 K/uL (0.00-0.50); Hematocrit (blood only) 37.1 % (42.0-52.0); Hemoglobin 13.1 g/dl (14.0-18.0); Immature Granulocytes # (auto) 0.03 K/uL (0.01-0.20); Immature Granulocytes % (auto) 0.3 %; Lymphocytes # (auto) 1.64 K/uL (1.20-3.40); Lymphocytes % (auto) 18.1 %; Mean Corpuscular Hemoglobin 32.4 pg (25.0-34.0); Mean Corpuscular Hgb Conc 35.3 g/dL (32.0-36.0); Mean Corpuscular Volume 91.8 fL (80.0-100.0); Mean Platelet Volume 9.2 fL (9.4-12.4); Monocytes # (auto) 1.03 K/uL (0.11-0.59); Monocytes % (auto) 11.3 %; Neutrophils # (auto) 6.07 K/uL (1.40-6.50); Neutrophils % (auto) 66.9 %; Platelet Count 167 K/uL (130-400); RDW Coefficient of Variation 12.1 % (11.5-14.5); RDW Standard Deviation 40.4 fL (36.4-46.3); Red Blood Count 4.04 M/uL (4.70-6.10); White Blood Count 9.08 K/ul (4.8-10.8)
[2024-10-13 06:52] LABS: BUN Creatinine Ratio 15.2 (10-20); Calcium 8.8 mg/dl (8.6-10.3); Creatinine Clr Calc Pharmacy 80.4 ml/min; Potassium 4.7 mmol/L (3.5-5.1)
[2024-10-13] MEDS: cefTRIAXone SODIUM 2,000 MG/50 ML BAG IV SCH (07:59)
--- NOTE | 2024-10-13 08:27 | Hospitalist Progress Note ---
Date of Service October 13, 2024 Assessment & Plan (1) Gross hematuria: (2) Acute kidney injury: (3) Anticoagulant long-term use: (4) Atrial fibrillation, permanent: (5) Status post recent transurethral resection of prostate: Plan The patient is a 69-year-old male with a past medical history including indeterminate pulmonary nodules, elevated bilirubin,, cytopenia, long-term anticoagulant use with Eliquis for atrial fibrillation, BPH with LUTS, dyslipidemia, hypertension, aortic atherosclerosis and CAD. He underwent a TURP on 10/02, he reports he had been doing well until about 10/06, when he was resumed his anticoagulation with Eliquis for his atrial fibrillation. He reports starting to have some blood-tinged urine at that point, and now over the past 24 to 36 hours he developed progressively worsening clots, and ultimately was unable to urinate. He did have a Serrano catheter placed for CBI in the ED, had improvement in urine flow, and now has bright red blood in Serrano bag with CBI running. He reports he did develop a temperature about 24 hours ago, but has no other generalized complaints. #Gross hematuria/bladder outlet obstruction secondary to blood clots/status post TURP on 10/02- - was doing well until he resumed his Eliquis on 10/06, started developing blood in urine, which evolved into more clots, and then difficulty urinating - Due to worsening pressure in his pelvis, he presented to the ED for assessment. He required fentanyl 100 mcg IV and morphine sulfate 4 mg IV for pain management to have Serrano catheter placed, which led to subsequent hypoxia - diet resumed per urology recs - urology on board, recs holding CBI today and getting pt to ambulate more. if bleeding recurs, then resume CBI. - cont CTX at this time - cont tamsulosin and finasteride - pain control with tylenol / tramadol / oxycodone , senna S for OIC prevention - monitor for hypoxia given earlier episode with IV narcs #Permanent atrial fibrillation - Eliquis on hold - monitor Hgb, stable around 14.8 > 13.3 - Reported history of thrombocytopenia, however platelets are 199 at this time #Acute kidney injury- resolved - Creatinine 1.39, with base 1.05 - s/p IVF - hold lisinopril / HCTZ #Hypertension-hold lisinopril/HCTZ, BP remains stable #Hyperlipidemia-Hold atorvastatin #VTE: SCDs 10/13: pt's at bedside Admission and Anticipated Discharge Date Admission Date: October 12, 2024 Subjective No acute events overnight Still have quite a bit of pain, but significantly improved since presentation Review of Systems Review of Systems: comprehensive ROS unremarkable Physical Exam Physical Exam: Gen: NAD HEENT: NC/AT, MMM Lungs: CTAB CVS: s1s2nl, RRR Abd: soft, NT, nl bowel sounds : 3-way serrano in place, CBI Ext: no edema Results & Data Results & Data Vital Signs (Past 12 Hours) Vital Signs Temp Pulse Pulse Resp BP BP Pulse Ox 10/13/24 07:52 36.9 C 86 16 123/81 96 10/13/24 07:10 10/13/24 07:07 60 10/13/24 03:20 37.1 C 66 18 117/79 97 10/12/24 23:16 37.4 C 74 18 118/73 96 10/12/24 22:05 60 10/12/24 20:38 37.4 C 67 16 109/73 98 O2 Del Method 10/13/24 07:52 Room Air 10/13/24 07:10 Room Air 10/13/24 07:07 10/13/24 03:20 Room Air 10/12/24 23:16 Room Air 10/12/24 22:05 10/12/24 20:38 Room Air PG Care Time/CCT Total # of Minutes Spent Total Time Spent with Patient: Total time spent is greater than 50% in coordination of care (as documented) at patient's floor/unit and/or counseling patient: Coding Level of Care Code 46514 SUB INP/OBS CARE 2/35MIN Diagnoses Gross hematuria R31.0 Acute kidney injury N17.9 Anticoagulant long-term use Z79.01 Atrial fibrillation, permanent I48.21 Status post recent transurethral resection of prostate Z98.890
--- NOTE | 2024-10-13 11:08 | Urology Progress Note ---
Date of Service October 13, 2024 Assessment & Plan (1) Gross hematuria: (2) Status post recent transurethral resection of prostate: Plan Urine remains fairly clear s/p hand irrigation. As a next step, he should get out of bed and ambulate. If this causes recurrence of hematuria, would resume CBI. If urine remains clear, would be reasonable to consider voiding trial or discharge home with Garcia catheter in place. Urology will follow along. Admission and Anticipated Discharge Date Admission Date: October 12, 2024 Subjective 69-year-old male s/p TURP with Dr. Chau. Feeling well this morning. Did not require hand irrigation of catheter overnight Continuous irrigation has been slowed and essentially stopped Has not ambulated yet Hemoglobin stable (13.1). Creatinine stable as well (1.02) Physical Exam Physical Exam: Seated in bed, NAD Garcia catheter in place draining light peach colored urine with CBI clamped Results & Data Vital Signs (Past 12 Hours) Vital Signs Temp Pulse Pulse Resp BP BP Pulse Ox 10/13/24 07:52 36.9 C 86 16 123/81 96 10/13/24 07:10 10/13/24 07:07 60 10/13/24 03:20 37.1 C 66 18 117/79 97 10/12/24 23:16 37.4 C 74 18 118/73 96 O2 Del Method 10/13/24 07:52 Room Air 10/13/24 07:10 Room Air 10/13/24 07:07 10/13/24 03:20 Room Air 10/12/24 23:16 Room Air PG Care Time/CCT Total # of Minutes Spent Total Time Spent with Patient: Total time spent is greater than 50% in coordination of care (as documented) at patient's floor/unit and/or counseling patient: Coding Level of Care Code 70477 SUB INP/OBS CARE 10/20MIN Diagnoses Gross hematuria R31.0 Status post recent transurethral resection of prostate Z98.890
[2024-10-14] MEDS ORDERED: ACETAMINOPHEN 1,000 MG/100 ML VIAL IV PRN (02:23)
--- NOTE | 2024-10-14 09:30 | Urology Progress Note ---
Date of Service October 14, 2024 Assessment & Plan (1) Gross hematuria: Plan: Likely has a little bit of persistent oozing s/p TURP, exacerbated by movement. Continue to wean CBI today with a goal of stopping it entirely. Will order a bladder ultrasound to ensure there is no large residual clot within the bladder, although I have low suspicion for this. If CBI can be stopped and ultrasound looks clear, voiding trial would be reasonable. Burning at the tip of the penis may be related to indwelling catheter or could be related to irritation of the bladder. Agree with continuing tamsulosin and oxybutynin. Could try adding topical lidocaine as needed. Admission and Anticipated Discharge Date Admission Date: October 12, 2024 Subjective Feeling okay this morning Catheter has been draining well, although blushes with ambulating. Has been on slow drip irrigation but has not required hand irrigation. Reports some burning at the tip of the penis Physical Exam Physical Exam: Well-appearing, NAD Garcia catheter in place draining clear peach urine on slow drip CBI, no clots in the line or bag Results & Data Vital Signs (Past 12 Hours) Vital Signs Temp Pulse Pulse Resp BP BP Pulse Ox 10/14/24 07:28 36.8 C 59 L 18 109/71 97 10/14/24 07:25 51 L 10/14/24 04:55 36.7 C 56 L 20 112/74 96 10/13/24 22:48 37.1 C 66 16 111/75 96 10/13/24 21:55 75 O2 Del Method 10/14/24 07:28 Room Air 10/14/24 07:25 10/14/24 04:55 Room Air 10/13/24 22:48 Room Air 10/13/24 21:55 PG Care Time/CCT Total # of Minutes Spent Total Time Spent with Patient: Total time spent is greater than 50% in coordination of care (as documented) at patient's floor/unit and/or counseling patient: Coding Level of Care Code 14263 SUB INP/OBS CARE 10/20MIN Diagnoses Gross hematuria R31.0
--- NOTE | 2024-10-14 11:01 | Ultrasound Report ---
EXAM: US Bladder INDICATION: Hematuria 12 days following TURP. TECHNIQUE: Real-time ultrasound of the bladder with image documentation. COMPARISON: No relevant prior studies available. FINDINGS: Partially collapsed bladder with a balloon inflated in the lumen. There is adjacent debris probably blood clots. No pericystic fluid. IMPRESSION: Partially collapsed urinary bladder containing a catheter and multiple blood clots. ACT 112: Negative or not required by law. Electronically signed by Kimberley Iqbal 10-14-2024 11:00 AM
[2024-10-14] MEDS ORDERED: MoRPHine SULFATE 4 MG/ML 1 ML CARP\\VIAL IV PRN (15:30)
--- NOTE | 2024-10-14 15:34 | Hospitalist Progress Note ---
Date of Service October 14, 2024 Assessment & Plan (1) Gross hematuria: (2) Acute kidney injury: (3) Anticoagulant long-term use: (4) Atrial fibrillation, permanent: (5) Status post recent transurethral resection of prostate: Plan The patient is a 69-year-old male with a past medical history including indeterminate pulmonary nodules, elevated bilirubin,, cytopenia, long-term anticoagulant use with Eliquis for atrial fibrillation, BPH with LUTS, dyslipidemia, hypertension, aortic atherosclerosis and CAD. He underwent a TURP on 10/02, he reports he had been doing well until about 10/06, when he was resumed his anticoagulation with Eliquis for his atrial fibrillation. He reports starting to have some blood-tinged urine at that point, and now over the past 24 to 36 hours he developed progressively worsening clots, and ultimately was unable to urinate. He did have a Serrano catheter placed for CBI in the ED, had improvement in urine flow, and now has bright red blood in Serrano bag with CBI running. He reports he did develop a temperature about 24 hours ago, but has no other generalized complaints. #Gross hematuria/bladder outlet obstruction secondary to blood clots/status post TURP on 10/02- - was doing well until he resumed his Eliquis on 10/06, started developing blood in urine, which evolved into more clots, and then difficulty urinating - Due to worsening pressure in his pelvis, he presented to the ED for assessment. He required fentanyl 100 mcg IV and morphine sulfate 4 mg IV for pain management to have Serrano catheter placed, which led to subsequent hypoxia - urology on board, plan was to do a voiding trial today, however, US bladder shows some debris, thus decision is made to either manually irrigate tonight or OR irrigate tomorrow, NPO p MN - cont CTX at this time - cont tamsulosin and finasteride - pain control with tylenol / tramadol / oxycodone , senna S for OIC prevention - monitor for hypoxia given earlier episode with IV narcs #Permanent atrial fibrillation - Eliquis on hold - monitor Hgb, stable around 14.8 > 13.3 - Reported history of thrombocytopenia, however platelets are 199 at this time #Acute kidney injury- resolved - Creatinine 1.39, with base 1.05 - s/p IVF - hold lisinopril / HCTZ #Hypertension-hold lisinopril/HCTZ, BP remains stable #Hyperlipidemia-Hold atorvastatin #VTE: SCDs Dispo: pending stability from urological standpoint, pt will also need trial of Eliquis after voiding trial prior to discharge 10/13: pt's at bedside Admission and Anticipated Discharge Date Admission Date: October 12, 2024 Subjective No acute events overnight CBI had to be resumed yesterday after pt ambulated Currently no new complaints Review of Systems Review of Systems: comprehensive ROS unremarkable Physical Exam Physical Exam: Gen: NAD HEENT: NC/AT, MMM Lungs: CTAB CVS: s1s2nl, RRR Abd: soft, NT, nl bowel sounds : 3-way serrano in place, CBI Ext: no edema Results & Data Results & Data Vital Signs (Past 12 Hours) Vital Signs Temp Pulse Pulse Resp BP BP Pulse Ox 10/14/24 14:38 54 L 10/14/24 12:18 37.0 C 50 L 16 101/67 96 10/14/24 07:28 36.8 C 59 L 18 109/71 97 10/14/24 07:25 51 L 10/14/24 04:55 36.7 C 56 L 20 112/74 96 O2 Del Method 10/14/24 14:38 10/14/24 12:18 Room Air 10/14/24 07:28 Room Air 10/14/24 07:25 10/14/24 04:55 Room Air PG Care Time/CCT Total # of Minutes Spent Total Time Spent with Patient: Total time spent is greater than 50% in coordination of care (as documented) at patient's floor/unit and/or counseling patient: Coding Level of Care Code 10511 SUB INP/OBS CARE 2/35MIN Diagnoses Gross hematuria R31.0 Acute kidney injury N17.9 Anticoagulant long-term use Z79.01 Atrial fibrillation, permanent I48.21 Status post recent transurethral resection of prostate Z98.890
[2024-10-15 09:52] LABS: Basophils # (auto) 0.04 K/uL (0.00-0.20); Basophils % (auto) 0.5 %; Eosinophils # (auto) 0.34 K/uL (0.00-0.50); Eosinophils % (auto) 4.6 %; Hemoglobin 12.7 g/dl (14.0-18.0); Immature Granulocytes # (auto) 0.03 K/uL (0.01-0.20); Immature Granulocytes % (auto) 0.4 %; Lymphocytes # (auto) 1.51 K/uL (1.20-3.40); Lymphocytes % (auto) 20.5 %; Mean Corpuscular Hemoglobin 32.7 pg (25.0-34.0); Mean Corpuscular Hgb Conc 36.3 g/dL (32.0-36.0); Mean Corpuscular Volume 90.2 fL (80.0-100.0); Mean Platelet Volume 9.1 fL (9.4-12.4); Monocytes # (auto) 0.68 K/uL (0.11-0.59); Monocytes % (auto) 9.2 %; Neutrophils # (auto) 4.77 K/uL (1.40-6.50); Neutrophils % (auto) 64.8 %; Platelet Count 192 K/uL (130-400); RDW Coefficient of Variation 11.8 % (11.5-14.5); RDW Standard Deviation 38.6 fL (36.4-46.3); Red Blood Count 3.88 M/uL (4.70-6.10); White Blood Count 7.37 K/ul (4.8-10.8)
[2024-10-15 10:11] LABS: Albumin Globulin Ratio 1.5 (0.9-2); Albumin Level 3.4 gm/dl (3.4-5.0); BUN Creatinine Ratio 16.5 (10-20); Bilirubin,Total 0.5 mg/dl (0.2-1.0); Calcium 8.8 mg/dl (8.6-10.3); Creatinine Clr Calc Pharmacy 82.1 ml/min; Globulin 2.3 gm/dl (2.5-4.0); Total Protein 5.7 gm/dl (6.0-8.3)
--- NOTE | 2024-10-15 10:17 | Urology Progress Note ---
Date of Service October 15, 2024 Assessment & Plan (1) Gross hematuria: Plan 69-year-old male who status post TURP on 10/02/2024 admitted with gross hematuria - Afebrile with stable vitals - Labs reviewed - Hemoglobin 12.7, WBC 7.37, Creatinine 1.03 - Continues on prophylactic antibiotics - Bladder ultrasound yesterday showing partially collapsed bladder with multiple blood clots - Garcia currently intact and draining clear urine with CBI on slow rate - CBI clamped this morning, nursing aware - will reassess later this morning - Maintain Garcia catheter and continue to monitor closely. OK to hand irrigate as needed - If urine remains clear off CBI, a voiding trial would be reasonable - Continue supportive care and pain management as needed - Keep NPO for now - Urology will follow along Update- - Pt reassessed - Urine is light pink off CBI - Maintain Garcia catheter for now and continue to monitor. Okay to hand irrigate as needed - Encourage OOB/ambulation - If urine remains clear off CBI, a voiding trial would be reasonable possibly today or first thing tomorrow morning - No plan for surgical intervention today - Ok for diet - Urology to follow Plan reviewed with Dr. Lawson Admission and Anticipated Discharge Date Admission Date: October 14, 2024 Subjective Pt seen at bedside this AM Awake and resting in bed on arrival No acute distress Garcia draining clear urine with CBI on slow/moderate rate Denies significant pain Has been NPO Review of Systems Constitutional: as per Subjective / HPI Genitourinary: + as per Subjective / HPI Physical Exam Constitutional: no acute distress Respiratory: no respiratory distress and no labored breathing Neurologic: moves all extremities and awake Psychiatric: A+Ox3, euthymic affect Genitourinary: Garcia intact w/CBI Results & Data Vital Signs (Past 12 Hours) Vital Signs Temp Pulse Pulse Resp BP BP Pulse Ox 10/15/24 07:43 36.9 C 63 18 109/72 97 10/15/24 07:25 55 L 10/15/24 02:59 36.7 C 49 L 18 107/70 96 10/14/24 22:51 37.1 C 75 18 110/69 96 O2 Del Method 10/15/24 07:43 Room Air 10/15/24 07:25 10/15/24 02:59 Room Air 01/19/25 22:51 Room Air PG Care Time/CCT Total # of Minutes Spent Total Time Spent with Patient: Total time spent is greater than 50% in coordination of care (as documented) at patient's floor/unit and/or counseling patient: Coding Level of Care Code 92180 SUB INP/OBS CARE 2/35MIN Diagnoses Gross hematuria R31.0
[2024-10-15] MEDS: LIDOCAINE 2% JELLY 5 ML TUBE EXT ONE (13:37)
--- NOTE | 2024-10-15 15:44 | Hospitalist Progress Note ---
Date of Service October 15, 2024 Assessment & Plan (1) Gross hematuria: Plan: The patient is a 69-year-old male with a past medical history including indeterminate pulmonary nodules, elevated bilirubin,, cytopenia, long-term anticoagulant use with Eliquis for atrial fibrillation, BPH with LUTS, dyslipidemia, hypertension, aortic atherosclerosis and CAD. He underwent a TURP on 10/02, he reports he had been doing well until about 10/06, when he was resumed his anticoagulation with Eliquis for his atrial fibrillation. He reports starting to have some blood-tinged urine at that point, and now over the past 24 to 36 hours he developed progressively worsening clots, and ultimately was unable to urinate. He did have a Garcia catheter placed for CBI in the ED, had improvement in urine flow, and now has bright red blood in Garcia bag with CBI running. He reports he did develop a temperature about 24 hours ago, but has no other generalized complaints. #Gross hematuria/bladder outlet obstruction secondary to blood clots/status post TURP on 10/02- - was doing well until he resumed his Eliquis on 10/06, started developing blood in urine, which evolved into more clots, and then difficulty urinating - Due to worsening pressure in his pelvis, he presented to the ED for assessment. He required fentanyl 100 mcg IV and morphine sulfate 4 mg IV for pain management to have Garcia catheter placed, which led to subsequent hypoxia Had irrigation and was doing well, irrigation was stopped and felt well until he accidentally snagged/pulled the Garcia mid day 10/15. Decreased output with increased reddish color. Has some fullness in his suprapubic region. Will bladder scan to evaluate for obstruction. If present reposition Garcia, irrigate, and continue to follow Urology following Continue Flomax/finasteride Continue multimodal pain control #Permanent atrial fibrillation - Eliquis on hold - monitor Hgb. No current indication for transfusion, some losses due to hematuria #Acute kidney injury- resolved - s/p IVF - hold lisinopril / HCTZ BP remains normal. #Hypertension-hold lisinopril/HCTZ, BP remains stable #Hyperlipidemia-Hold atorvastatin #VTE: SCDs Dispo: pending stability from urological standpoint, pt will also need trial of Eliquis after voiding trial prior to discharge (2) Acute kidney injury: (3) Anticoagulant long-term use: (4) Atrial fibrillation, permanent: (5) Status post recent transurethral resection of prostate: Admission and Anticipated Discharge Date Admission Date: October 14, 2024 Subjective Ed was seen at the bedside. He reports he was doing very well and was tolerating bladder irrigation, but after walking forgot about the catheter which snagged and after tugging had severely increased pain in the suprapubic region. Since that time he has had minimal output with much darker urine into his Garcia bag, 200 cc over the last 3 to 4 hours total. Denies fever chills or sweats. Otherwise feels okay but is somewhat frustrated by the accident which she worries will regress his progress. Physical Exam Physical Exam: General: A&Ox3. NAD. Cooperative. HEENT: Atraumatic, normocephalic. Pulm: Symmetrical chest rise. No increased work of breathing. No respiratory distress. Cardiac: RRR, -mrg. Radial pulses intact and symmetrical. : Garcia bag in place. Draining about 200 cc of deep red-tinged urine. Scant bloody output around meatus Abdominal: Nontender, nondistended, soft. BS present. Results & Data Results & Data Vital Signs (Past 12 Hours) Vital Signs Temp Pulse Pulse Resp BP Pulse Ox O2 Del Method 10/15/24 15:07 67 10/15/24 11:17 36.8 C 61 20 110/74 95 Room Air 10/15/24 07:43 36.9 C 63 18 109/72 97 Room Air 10/15/24 07:25 55 L PG Care Time/CCT Total # of Minutes Spent Total Time Spent with Patient: Total time spent is greater than 50% in coordination of care (as documented) at patient's floor/unit and/or counseling patient: Coding Level of Care Code 35706 SUB INP/OBS CARE 2/35MIN Diagnoses Gross hematuria R31.0 Acute kidney injury N17.9 Anticoagulant long-term use Z79.01 Atrial fibrillation, permanent I48.21 Status post recent transurethral resection of prostate Z98.890
[2024-10-16 06:33] LABS: Basophils # (auto) 0.04 K/uL (0.00-0.20); Basophils % (auto) 0.5 %; Eosinophils # (auto) 0.41 K/uL (0.00-0.50); Eosinophils % (auto) 5.5 %; Hematocrit (blood only) 34.7 % (42.0-52.0); Hemoglobin 12.6 g/dl (14.0-18.0); Immature Granulocytes # (auto) 0.02 K/uL (0.01-0.20); Immature Granulocytes % (auto) 0.3 %; Lymphocytes # (auto) 1.64 K/uL (1.20-3.40); Lymphocytes % (auto) 21.9 %; Mean Corpuscular Hemoglobin 32.2 pg (25.0-34.0); Mean Corpuscular Hgb Conc 36.3 g/dL (32.0-36.0); Mean Corpuscular Volume 88.7 fL (80.0-100.0); Mean Platelet Volume 9.3 fL (9.4-12.4); Monocytes % (auto) 10.7 %; Neutrophils # (auto) 4.58 K/uL (1.40-6.50); Neutrophils % (auto) 61.1 %; Platelet Count 200 K/uL (130-400); RDW Coefficient of Variation 11.9 % (11.5-14.5); RDW Standard Deviation 37.9 fL (36.4-46.3); Red Blood Count 3.91 M/uL (4.70-6.10); White Blood Count 7.49 K/ul (4.8-10.8)
[2024-10-16 06:41] LABS: Albumin Globulin Ratio 1.5 (0.9-2); Albumin Level 3.4 gm/dl (3.4-5.0); BUN Creatinine Ratio 18.2 (10-20); Bilirubin,Total 0.6 mg/dl (0.2-1.0); Calcium 8.9 mg/dl (8.6-10.3); Creatinine Clr Calc Pharmacy 76.6 ml/min; Globulin 2.2 gm/dl (2.5-4.0); Potassium 4.2 mmol/L (3.5-5.1); Total Protein 5.6 gm/dl (6.0-8.3)
--- NOTE | 2024-10-16 09:23 | Urology Progress Note ---
Date of Service October 16, 2024 Assessment & Plan (1) Gross hematuria: Plan 69-year-old male who status post TURP on 10/02/2024 admitted with gross hematuria - Afebrile with stable vitals - Labs reviewed - Hemoglobin 12.6, WBC 7.49, Creatinine 1.10 - Continues on prophylactic antibiotics - Garcia intact and draining pink-tinged urine off CBI - Will plan for void trial this morning - OK to remove Garcia catheter and monitor for void - If patient is able to void following cath removal and urine is appropriate, can likely d/c home later today - Would continue to hold anticoagulation, possibly resume later this week (/Fri) depending on clinical course - Urology will follow along Admission and Anticipated Discharge Date Admission Date: October 14, 2024 Subjective Pt seen at bedside this AM Awake and resting in bed on arrival No acute distress Garcia draining pink tinged urine off CBI No reported pain No fevers Review of Systems Constitutional: as per Subjective / HPI Genitourinary: + as per Subjective / HPI Physical Exam Constitutional: no acute distress Respiratory: no respiratory distress and no labored breathing Neurologic: moves all extremities and awake Psychiatric: A+Ox3, euthymic affect Genitourinary: Garcia intact Results & Data Vital Signs (Past 12 Hours) Vital Signs Temp Pulse Pulse Resp BP BP Pulse Ox 10/16/24 07:42 36.8 C 46 L 16 120/72 96 10/16/24 07:23 49 L 10/16/24 03:39 36.6 C 62 18 112/74 98 10/16/24 00:18 36.7 C 51 L 18 119/77 98 10/15/24 22:01 69 O2 Del Method 10/16/24 07:42 Room Air 10/16/24 07:23 10/16/24 03:39 Room Air 10/16/24 00:18 Room Air 10/15/24 22:01 PG Care Time/CCT Total # of Minutes Spent Total Time Spent with Patient: Total time spent is greater than 50% in coordination of care (as documented) at patient's floor/unit and/or counseling patient: Coding Level of Care Code 72516 SUB INP/OBS CARE 2/35MIN Diagnoses Gross hematuria R31.0
[2024-10-16 11:39] VITALS: PULSE 51; RESP 18; TEMP 98.6; O2SAT 98
--- NOTE | 2024-10-16 12:34 | Discharge Summary ---
Discharge Summary Date of Service October 16, 2024 Principal Dx & Hospital Course #1 = Principal Diagnosis (1) Gross hematuria: The patient is a 69-year-old male with a past medical history including indeterminate pulmonary nodules, elevated bilirubin,, cytopenia, long-term anticoagulant use with Eliquis for atrial fibrillation, BPH with LUTS, dyslipidemia, hypertension, aortic atherosclerosis and CAD. He underwent a TURP on 10/02, he reports he had been doing well until about 10/06, when he was resumed his anticoagulation with Eliquis for his atrial fibrillation. He reports starting to have some blood-tinged urine at that point, and now over the past 24 to 36 hours he developed progressively worsening clots, and ultimately was unable to urinate. He did have a Garcia catheter placed for CBI in the ED, had improvement in urine flow, and now has bright red blood in Garcia bag with CBI running. He reports he did develop a temperature about 24 hours ago prior to admission but had no other complaints. During admission UA was with blood but not overtly infected appearing. He received 4 doses of Rocephin which was then discontinued. He underwent he was bladder irrigation after urology consult and did well. Voiding trial versus outpatient urology follow-up was discussed with patient, he preferred an inpatient voiding trial which was done day of discharge and patient was subsequently able to void successfully twice following this. He was discharged without a Garcia catheter to urology follow-up. Eliquis was held, he did have some red-tinged urine prior to discharge and was recommended to hold Eliquis for 1 week and then doing this as long as his urine was not bloody unless directed otherwise by his PCP/urologist. Patient did have a mild MONIQUE which resolved by time of discharge. His home antihypertensives were resumed on discharge To do as outpatient: Follow-up with PCP and urology Hold Eliquis for 1 week. Resume unless contraindicated/ongoing hematuria. If ongoing hematuria will need further recommendations by outpatient providers (2) Acute kidney injury: (3) Anticoagulant long-term use: (4) Atrial fibrillation, permanent: (5) Status post recent transurethral resection of prostate: Admission HPI Per Admitting Provider The patient is a 69-year-old male with a past medical history including indeterminate pulmonary nodules, elevated bilirubin,, cytopenia, long-term anticoagulant use with Eliquis for atrial fibrillation, BPH with LUTS, dyslipidemia, hypertension, aortic atherosclerosis and CAD. He underwent a TURP on 10/02, he reports he had been doing well until about 10/06, when he was resumed his anticoagulation with Eliquis for his atrial fibrillation. He reports starting to have some blood-tinged urine at that point, and now over the past 24 to 36 hours he developed progressively worsening clots, and ultimately was unable to urinate. He did have a Garcia catheter placed for CBI in the ED, had improvement in urine flow, and now has bright red blood in Garcia bag with CBI running. He reports he did develop a temperature about 24 hours ago, but has no other generalized complaints. Patient did have complication of developing some mild hypoxia after receiving pain medications to help deal with placement of Garcia catheter, with pulse ox 83% on room air, and presently is 100% on 2 L nasal cannula., With no significant chest discomfort or shortness of breath Discharge Exam General: A&Ox3. NAD. Cooperative. HEENT: Atraumatic, normocephalic. Vision and hearing grossly Pulm: CTAB A&P. -wheezes, -rales, -rhonchi. Symmetrical chest rise. No increased work of breathing. No respiratory distress. Cardiac: bradycardic 50s with chronotropic response. irregular, -mrg. Radial pulses intact and symmetrical. Abdominal: Nontender, nondistended, soft. BS present. Discharge Plan Discharge Items Patient Disposition: Home - Self-Care Reason For Visit: HYPOXIA, URINARY RETENTION Discharge Diagnosis: Hematuria, urinary retention Activity: Resume your previous activity Non-emergency contact: Primary Care Provider and Urologist Call non-emergency contact if: you have any medication questions, your symptoms worsen and your pain is not controlled Follow-up/Referrals: Harman Riley CRNP [Primary Care Provider] - Rodolfo You MD [Physician] - Diet: Regular Addtl Attending Provider Instructions: You are seen in the hospital for hematuria and urinary retention. You were treated with a Garcia catheter and bladder irrigation and did well. A voiding trial versus outpatient follow-up for voiding trial was discussed with you by urology, you opted for a inpatient voiding trial which went well and you were discharged without a Garcia to urology follow-up. You have acute kidney injury during admission which resolved Your Eliquis is currently on hold for ongoing hematuria. There is a risk of stroke due to A-fib while your Eliquis is held. You continue to have some reddish urine before discharge, although no signs of clot or obstruction. It is recommended to hold Eliquis for 1 week, and then resume Eliquis. If you have further hematuria/bleeding please discuss this further with your primary care physician You are on antibiotics prophylactically during admission. Your urine did not show any signs of active infection. Antibiotics were discontinued at time of discharge. If you develop any new or worsening symptoms including fever, chills, sweats, chest pain, chest pressure, difficulty breathing, uncontrolled nausea/vomiting, rash, wheezing, passing out or nearly passing out, bleeding, black/bloody bowel movements, or other new or concerning symptoms please call your primary care physician, or call 911 for re-evaluation in the emergency department if you are very concerned. Pending Studies at Discharge: No Stand-Alone Forms: My [facility], Smoking Cessation Medications and DC Order Prescriptions: Continued lisinopril-hydrochlorothiazide 10-12.5 mg tablet 1 tab PO QAM Qty: 90 3RF tamsulosin 0.4 mg capsule 0.4 mg PO QAM Qty: 90 3RF multivitamin [Daily Multi-Vitamin] Tablet 1 tab PO QAM Rx Instructions: otc unable to verify with pharmacy coenzyme Q10 30 mg Capsule 30 mg PO QAM Rx Instructions: otc unable to verify with pharmacy garlic Tablet 500 mg PO QAM Rx Instructions: otc unable to verify with pharmacy finasteride 5 mg tablet 5 mg PO QAM atorvastatin 40 mg tablet 20 - 40 mg PO QAM Patient Comments: rotate 40 mg one day , next day 20 mg. Rx Instructions: alternating 40mg and 20 mg every other day orally; oxycodone 5 mg tablet 5 mg PO Q6H PRN (Reason: pain) Qty: 7 0RF oxybutynin chloride 5 mg tablet extended release 24hr 5 mg PO DAILY Qty: 7 0RF Held Eliquis 5 mg tablet 5 mg PO BID Hold Instructions: Resume on 10/23/24. Rx Instructions: TAKE ONE TABLET BY MOUTH TWICE DAILY Discharge Orders: Discharge Order (Routine); Ordered 10/16/24 Ordered By: Mick Urrutia Admission Data Admit Date/Time: 10/14/24 15:28 Attending Provider: Mick Urrutia Admit Provider: Lillie Henning Primary Care Provider: Harman Riley Other Providers: Mike Mast; Rodolfo You Hospital Stay Data Consultations 10/12/24 05:56 Consult Urology Routine ED Decision to Admit Stat Diagnostic Imagining Performed 10/12/24 04:14 CT abd pelvis IV con only Stat 10/14/24 09:30 US retro bladder ltd Routine Discharge Instructions Given to Patient (Per Discharging Provider) You are seen in the hospital for hematuria and urinary retention. You were treated with a Garcia catheter and bladder irrigation and did well. A voiding trial versus outpatient follow-up for voiding trial was discussed with you by urology, you opted for a inpatient voiding trial which went well and you were discharged without a Garcia to urology follow-up. You have acute kidney injury during admission which resolved Your Eliquis is currently on hold for ongoing hematuria. There is a risk of stroke due to A-fib while your Eliquis is held. You continue to have some reddish urine before discharge, although no signs of clot or obstruction. It is recommended to hold Eliquis for 1 week, and then resume Eliquis. If you have further hematuria/bleeding please discuss this further with your primary care physician You are on antibiotics prophylactically during admission. Your urine did not show any signs of active infection. Antibiotics were discontinued at time of discharge. If you develop any new or worsening symptoms including fever, chills, sweats, chest pain, chest pressure, difficulty breathing, uncontrolled nausea/vomiting, rash, wheezing, passing out or nearly passing out, bleeding, black/bloody bowel movements, or other new or concerning symptoms please call your primary care physician, or call 911 for re-evaluation in the emergency department if you are very concerned. Total Time Total Time Spent Total Time Spent (In Minutes): Time spend day of discharge 40 minutes including direct patient care, documentation, review of labs and images, and coordination of care. Coding Level of Care Code 18795 INP/OBS DISCH >30 MIN Diagnoses Gross hematuria R31.0 Acute kidney injury N17.9 Anticoagulant long-term use Z79.01 Atrial fibrillation, permanent I48.21 Status post recent transurethral resection of prostate Z98.890
[2024-10-16 12:55] VITALS: BP 112/74
--- NOTE | 2024-10-18 13:12 | Coding Query ---
CODING QUERY To promote full compliance with coding requirements relating to patient care, provider participation is requested in all cases of intelligence applications uncertainty. Please assist us with the question(s) below: Coding Question(s): Per progress notes: pt came in for gross hematuria/retention, s/p TURP. Was doing well until he restarted eliquis. "Likely due to Eliquis" was mentioned. Please clarify if the hemauria is the result of the procedure or anticoagulation therapy. Physician's Response(s): ( X ) Hematuria due to anticoagulation therapy ( ) Hematuria due to postoperative complications ( ) Hematuria due to other Thank you Tamara Posadas Principal Diagnosis: "that condition established after study, to be chiefly responsible for occasioning the admission of the patient to the hospital for care." Co-Existing Principal Diagnosis: "when two or more diagnoses equally meet the criteria for principal diagnosis as determined by the circumstances of admission, diagnostic work up, and/or therapy provided, and the Alphabetic Index, Tabular List, or another coding guideline does not provide sequencing direction, any one of the diagnoses may be sequenced first." "When the physician has documented what appears to be a current diagnosis in the body of the record, but has not included the diagnosis in the final diagnostic statement, the physician should be asked whether the diagnosis should be added." (Source Coding [facility] 2 QTR90. p3-4) RHONA
== END 2024-10-16 14:01 | disposition home or self-care (01) | DRG 813 ==
LOC: SUATTDRO → ED 04:01 → EDINP 04:01 → SUATTDRO 06:16 → 2W 11:46 → SUATTDRO 10-14 15:28